=== PATIENT | male | born 1985 | race Caucasian/White ===

== ENCOUNTER 2017-01-03 21:05 | Emergency (ER) | payer MEDICAID, OTHER, SELFPAY ==
[~2017-01-03] VITALS: Ht 175.3 cm; Wt 87.1 kg
[~2017-01-03 21:05] MED LIST: ACET65TA OR; DICL500C OR; DOXY100T OR; LEVA500T OR; PERC5TAB8 OR
[2017-01-03] MEDS ORDERED: DOXY-278 PO (23:20)
[2017-01-03] MEDS ORDERED: NORCOTAB PO (23:20)
[2017-01-03 23:27] VITALS: BP 117/75
[2017-01-03] MEDS ORDERED: NORCO, ANEXSIA 5/325MG TABLET (HYDROcodone/ACETAMINOPHEN) PO ONE (23:30)
[2017-01-03] MEDS ORDERED: DOXYCYCLINE HYCLATE 100 MG TAB PO ONE (23:30)
== END 2017-01-03 23:34 | disposition home or self-care (01) ==
LOC: M ED 22:17
DX: L02.212 Cutaneous abscess of back [any part, except buttock and flank] (principal); F32.9 Major depressive disorder, single episode, unspecified; F17.200 Nicotine dependence, unspecified, uncomplicated

== ENCOUNTER 2017-01-26 22:27 | Emergency (ER) | payer MEDICAID ==
[~2017-01-26] VITALS: Ht 177.8 cm; Wt 87.2 kg
[~2017-01-26 22:27] MED LIST changes: +DOXY-278 PO; +NORCOTAB PO
[2017-01-26] MEDS ORDERED: ISOVUE-370 76% 100ML VIAL (Q9967) As Ordered ONE (22:59)
[2017-01-26] MEDS ORDERED: ONDANSETRON 4MG/2ML VIAL (J2405) IV ONE (23:00)
[2017-01-26] MEDS ORDERED: NS 1,000 ML IV ONE (23:00)
[2017-01-26] MEDS: MORPHINE 2 MG/ML 1ML SYRINGE IV PRN ×2 (23:08→23:28)
[2017-01-26 23:34] LABS: BASO % 0.5 % (0.0-1.0); EOS # 0.3 K/mm3 (0.0-0.50); EOS % 3.2 % (0.0-3.0); LARGE UNSTAINED CELL # 0.1 K/mm3 (0.0-0.4); LARGE UNSTAINED CELL % 1.6 % (0.0-4.0); LYMPH # 2.4 K/mm3 (1.5-6.5); LYMPH % 24.7 % (24.0-44.0); MEAN CORPUSCULAR HEMOGLOBIN 30.4 pg (27.0-33.0); MEAN CORPUSCULAR HGB CONC 33.1 g/dl (32.0-36.5); MONO # 0.4 K/mm3 (0.0-0.8); MONO % 4.3 % (0.0-5.0); NEUTROPHILS % 65.7 % (36.0-66.0); PLATELET COUNT, AUTOMATED 332 k/mm3 (150-450); RED CELL DISTRIBUTION WIDTH 12.1 % (11.5-14.5)
[2017-01-26 23:45] LABS: ALBUMIN/GLOBULIN RATIO 1.18 (1.00-1.93); ALKALINE PHOSPHATASE 48 U/L (45-117); ALT/SGPT 24 U/L (12-78); ANION GAP 8 MEQ/L (8-16); AST/SGOT 14 U/L (15-37); BILIRUBIN,DIRECT 0.1 MG/DL (0.0-0.2); BILIRUBIN,TOTAL 0.3 MG/DL (0.2-1.0); BLOOD UREA NITROGEN 18 MG/DL (7-18); CARBON DIOXIDE LEVEL 25 MEQ/L (21-32); CHLORIDE LEVEL 107 MEQ/L (98-107); GLOMERULAR FILTRATION RATE > 60.0 (>60); GLUCOSE, FASTING 122 MG/DL (70-105); POTASSIUM SERUM 3.7 MEQ/L (3.5-5.1); SODIUM LEVEL 140 MEQ/L (136-145); TOTAL PROTEIN 7.4 GM/DL (6.4-8.2)
--- NOTE | 2017-01-27 00:20 | REPUSA ---
CLINICAL HISTORY: Abdominal pain. TECHNIQUE: Multiple axial, sagittal and coronal CT images were obtained through the abdomen and pelvi s after administration of oral and intravenous contrast material. COMMENTS: Fluid-filled distended stomach. Fluid filled proximal small bowels. Mild large bowel fecal stasis. The liver is of uniform attenuation without mass or defect. There is no intra or extrahepatic biliary ductal dilatation. The spleen is normal. The gallbladder is within normal limits. The pancreas is of normal contour and attenuation characteristics. There is no evidence of adrenal mass. Both kidneys demonstrate prompt and equal nephrograms. The kidneys are normal in size, shape and conf iguration. There is no evidence of renal or ureteral mass. No renal or ureteral calculi are identifie d. There is no hydroureter or hydronephrosis. No evidence for appendicitis. There is no bowel wall thickening. No evidence for small or large valerio l obstruction. There is no evidence of abdominal ascites or lymphadenopathy. There is no evidence of intrinsic or extrinsic bladder mass. There is no pelvic ascites or lymphadeno suzanne. Images of the lung bases show no evidence of pleural or parenchymal mass. There are no pleural effusi ons. The bony structures are free of lytic or blastic lesions. IMPRESSION: Gastroparesis. Fluid-filled proximal small bowel. Ileus versus developing enteritis. Thank you for your kind referral of this patient.
[2017-01-27 00:35] VITALS: BP 121/67
[2017-01-27] MEDS ORDERED: MIRA3350 PO (00:41)
[2017-01-27] MEDS: MORPHINE 2 MG/ML 1ML SYRINGE IV PRN (00:46)
== END 2017-01-27 00:55 | disposition home or self-care (01) ==
LOC: M ED 22:27
DX: K31.84 Gastroparesis (principal); K59.00 Constipation, unspecified; R50.9 Fever, unspecified; F32.9 Major depressive disorder, single episode, unspecified; Z72.0 Tobacco use; Z88.2 Allergy status to sulfonamides
CPT/HCPCS: 36415; 74177; 80048; 80076; 83605; 83690; 85025; 96374; 96375; 96376; 99283; J2405; Q9967

== ENCOUNTER 2017-09-07 19:11 | Emergency (ER) | payer OTHER, MEDICAID ==
[2017-09-07 20:09] LABS: BASO # 0.1 10^3/uL (0.0-0.2); BASO % 0.6 % (0.0-1.0); EOS # 0.5 10^3/uL (0.0-0.50); EOS % 5.3 % (0.0-3.0); HEMATOCRIT 42.4 % (42.0-52.0); HEMOGLOBIN 14.3 g/dl (14.0-18.0); IMMATURE GRANULOCYTE % 0.2 % (0-3.0); LYMPH # 3.1 10^3/uL (1.5-4.5); LYMPH % 33.5 % (24.0-44.0); MEAN CORPUSCULAR HEMOGLOBIN 30.2 pg (27.0-33.0); MEAN CORPUSCULAR HGB CONC 33.7 g/dl (32.0-36.5); MEAN CORPUSCULAR VOLUME 89.5 fl (80.0-96.0); MONO # 0.6 10^3/uL (0.0-0.8); NEUTROPHILS # 5.1 10^3/uL (1.8-7.7); NEUTROPHILS % 54.4 % (36.0-66.0); PLATELET COUNT, AUTOMATED 331 10^3/uL (150-450); RED BLOOD COUNT 4.74 10^6/uL (4.30-6.10); WHITE BLOOD COUNT 9.4 10^3/uL (4.0-10.0)
[2017-09-07 20:24] LABS: ANION GAP 9 MEQ/L (8-16); BLOOD UREA NITROGEN 17 MG/DL (7-18); CARBON DIOXIDE LEVEL 28 MEQ/L (21-32); CHLORIDE LEVEL 103 MEQ/L (98-107); CREATININE FOR GFR 0.96 MG/DL (0.70-1.30); GLOMERULAR FILTRATION RATE > 60.0 (>60); GLUCOSE, FASTING 94 MG/DL (70-100); POTASSIUM SERUM 4.1 MEQ/L (3.5-5.1); SODIUM LEVEL 140 MEQ/L (136-145)
[2017-09-07 20:33] LABS: D-DIMER QUANT < 270.0 ng/ml (<500)
== END 2017-09-07 21:35 | disposition home or self-care (01) ==
LOC: M ED 19:11
DX: J20.9 Acute bronchitis, unspecified (principal); F41.9 Anxiety disorder, unspecified; F32.9 Major depressive disorder, single episode, unspecified; Z77.098 Contact with and (suspected) exposure to other hazardous, chiefly nonmedicinal, chemicals; Z88.2 Allergy status to sulfonamides; Z79.899 Other long term (current) drug therapy
CPT/HCPCS: 71046

== ENCOUNTER 2017-10-06 21:03 | Emergency (ER) | payer OTHER ==
[2017-10-06 22:43] LABS: BASO # 0.1 10^3/uL (0.0-0.2); BASO % 0.6 % (0.0-1.0); EOS # 0.4 10^3/uL (0.0-0.50); EOS % 3.8 % (0.0-3.0); HEMATOCRIT 47.3 % (42.0-52.0); IMMATURE GRANULOCYTE % 0.1 % (0-3.0); LYMPH % 32.4 % (24.0-44.0); MEAN CORPUSCULAR HEMOGLOBIN 30.1 pg (27.0-33.0); MEAN CORPUSCULAR HGB CONC 33.8 g/dl (32.0-36.5); MEAN CORPUSCULAR VOLUME 88.9 fl (80.0-96.0); MONO # 0.5 10^3/uL (0.0-0.8); MONO % 5.3 % (0.0-5.0); NEUTROPHILS # 5.4 10^3/uL (1.8-7.7); NEUTROPHILS % 57.8 % (36.0-66.0); PLATELET COUNT, AUTOMATED 336 10^3/uL (150-450); RED BLOOD COUNT 5.32 10^6/uL (4.30-6.10); RED CELL DISTRIBUTION WIDTH 11.9 % (11.5-14.5); WHITE BLOOD COUNT 9.4 10^3/uL (4.0-10.0)
[2017-10-06 22:59] LABS: INR 0.88
[2017-10-06 23:00] LABS: PARTIAL THROMBOPLASTIN TIME 29.2 SECONDS (26.8-37.9)
[2017-10-06] MEDS ORDERED: ISOVUE-370 76% 100ML VIAL (Q9967) As Ordered (23:05)
[2017-10-06 23:10] LABS: ALBUMIN 4.8 GM/DL (3.2-5.2); ALBUMIN/GLOBULIN RATIO 1.33 (1.00-1.93); ALKALINE PHOSPHATASE 59 U/L (45-117); ALT/SGPT 32 U/L (12-78); ANION GAP 4 MEQ/L (8-16); AST/SGOT 18 U/L (7-37); BILIRUBIN,DIRECT < 0.1 MG/DL (0.0-0.2); BILIRUBIN,TOTAL 0.3 MG/DL (0.2-1.0); BLOOD UREA NITROGEN 18 MG/DL (7-18); CALCIUM LEVEL 9.4 MG/DL (8.5-10.1); CARBON DIOXIDE LEVEL 31 MEQ/L (21-32); CHLORIDE LEVEL 105 MEQ/L (98-107); CK-MB VALUE MASS < 1.0 NG/ML (<3.6); CPK CREATINE PHOSPHOKINASE 94 U/L (39-308); CREATININE FOR GFR 0.87 MG/DL (0.70-1.30); GLOMERULAR FILTRATION RATE > 60.0 (>60); GLUCOSE, FASTING 89 MG/DL (70-100); LIPASE 138 U/L (73-393); MB/CK RELATIVE INDEX 1.06 (< OR =4); POTASSIUM SERUM 4.3 MEQ/L (3.5-5.1); SODIUM LEVEL 140 MEQ/L (136-145); TOTAL PROTEIN 8.4 GM/DL (6.4-8.2); TROPONIN I < 0.02 NG/ML (< 0.10)
[2017-10-06] MEDS: LORazepam 1 MG TAB PO (23:27)
== END 2017-10-07 00:48 | disposition home or self-care (01) ==
LOC: M ED 10-07 00:48
DX: R04.2 Hemoptysis (principal); F33.9 Major depressive disorder, recurrent, unspecified; F41.9 Anxiety disorder, unspecified; Z87.891 Personal history of nicotine dependence; Z98.890 Other specified postprocedural states; Z88.1 Allergy status to other antibiotic agents; Z88.2 Allergy status to sulfonamides
CPT/HCPCS: Q9967

== ENCOUNTER → 2017-12-10 | Day surgery (SDC) | payer OTHER ==
[~2017-12-10] MED LIST changes: -ACET65TA OR; -DICL500C OR; -DOXY-278 PO; -DOXY100T OR; -LEVA500T OR; +LIDOCAINE 2% INJ 100 MG/5 ML SDV (FOR ANES.) As Ordered; -NORCOTAB PO; -PERC5TAB8 OR; +PROPOFOL 500 MG/50 ML VIAL As Ordered; +fentaNYL 100 MCG/2 ML INJECTION (J3010) As Ordered
[2017-12-10] MEDS: NS 1,000 ML IV (12:00)
== END | disposition home or self-care (01) ==
LOC: M OPP 11:47
DX: R93.3 Abnormal findings on diagnostic imaging of other parts of digestive tract (principal); K62.5 Hemorrhage of anus and rectum; K57.30 Diverticulosis of large intestine without perforation or abscess without bleeding; K64.8 Other hemorrhoids; K21.0 Gastro-esophageal reflux disease with esophagitis; K22.8 Other specified diseases of esophagus; K29.70 Gastritis, unspecified, without bleeding; K44.9 Diaphragmatic hernia without obstruction or gangrene; R11.2 Nausea with vomiting, unspecified; R19.7 Diarrhea, unspecified; F41.9 Anxiety disorder, unspecified; F32.9 Major depressive disorder, single episode, unspecified; R06.83 Snoring; F12.10 Cannabis abuse, uncomplicated; Z88.2 Allergy status to sulfonamides; Z79.899 Other long term (current) drug therapy; Z80.43 Family history of malignant neoplasm of testis
CPT/HCPCS: 45378

== ENCOUNTER 2018-04-04 18:49 | Emergency (ER) | payer OTHER ==
[2018-04-04] MEDS: diphenhydrAMINE INJ 50MG/ML VIAL (J1200) IV (19:52)
[2018-04-04] MEDS: HALOPERIDOL 5 MG/ML VIAL (J1630) IV (19:52)
[2018-04-04] MEDS: NS 1,000 ML IV (19:53)
[2018-04-04 20:05] LABS: BASO # 0.1 10^3/uL (0.0-0.2); BASO % 0.5 % (0.0-1.0); EOS # 0.1 10^3/uL (0.0-0.50); EOS % 1.1 % (0.0-3.0); HEMATOCRIT 51.3 % (42.0-52.0); HEMOGLOBIN 17.4 g/dl (13.5-17.5); IMMATURE GRANULOCYTE % 0.3 % (0-3.0); LYMPH # 2.5 10^3/uL (1.5-4.5); LYMPH % 21.7 % (24.0-44.0); MEAN CORPUSCULAR HEMOGLOBIN 29.8 pg (27.0-33.0); MEAN CORPUSCULAR HGB CONC 33.9 g/dl (32.0-36.5); MONO # 0.6 10^3/uL (0.0-0.8); MONO % 4.8 % (0.0-5.0); NEUTROPHILS # 8.3 10^3/uL (1.8-7.7); NEUTROPHILS % 71.6 % (36.0-66.0); PLATELET COUNT, AUTOMATED 399 10^3/uL (150-450); RED BLOOD COUNT 5.83 10^6/uL (4.30-6.10); RED CELL DISTRIBUTION WIDTH 12.1 % (11.5-14.5); WHITE BLOOD COUNT 11.6 10^3/uL (4.0-10.0)
[2018-04-04 20:39] LABS: ETHYL ALCOHOL (ETHANOL) < 0.003 % (0.000-0.010)
[2018-04-04 20:50] LABS: ALBUMIN 5.1 GM/DL (3.2-5.2); ALBUMIN/GLOBULIN RATIO 1.19 (1.00-1.93); ALKALINE PHOSPHATASE 60 U/L (45-117); ALT/SGPT 28 U/L (12-78); ANION GAP 16 MEQ/L (8-16); AST/SGOT 23 U/L (7-37); BILIRUBIN,DIRECT 0.3 MG/DL (0.0-0.2); BLOOD UREA NITROGEN 16 MG/DL (7-18); CALCIUM LEVEL 10.8 MG/DL (8.5-10.1); CARBON DIOXIDE LEVEL 22 MEQ/L (21-32); CHLORIDE LEVEL 103 MEQ/L (98-107); CREATININE FOR GFR 1.29 MG/DL (0.70-1.30); GLOMERULAR FILTRATION RATE > 60.0 (>60); GLUCOSE, FASTING 121 MG/DL (70-100); LIPASE 135 U/L (73-393); POTASSIUM SERUM 3.3 MEQ/L (3.5-5.1); SODIUM LEVEL 141 MEQ/L (136-145); TOTAL PROTEIN 9.4 GM/DL (6.4-8.2)
[2018-04-04] MEDS: POTASSIUM CHLORIDE 10 MEQ SR TABLET PO (22:58)
== END 2018-04-04 23:10 | disposition home or self-care (01) ==
LOC: M ED 18:49
DX: K52.9 Noninfective gastroenteritis and colitis, unspecified (principal); E87.6 Hypokalemia; F41.9 Anxiety disorder, unspecified; K21.9 Gastro-esophageal reflux disease without esophagitis; Z79.899 Other long term (current) drug therapy; Z88.2 Allergy status to sulfonamides; Z88.8 Allergy status to other drugs, medicaments and biological substances
CPT/HCPCS: J1200

== ENCOUNTER → 2018-04-18 | Outpatient (REF) | payer OTHER ==
[2018-04-18 14:57] LABS: BASO # 0.1 10^3/uL (0.0-0.2); BASO % 0.7 % (0.0-1.0); EOS # 0.3 10^3/uL (0.0-0.50); EOS % 4.7 % (0.0-3.0); HEMATOCRIT 44.8 % (42.0-52.0); HEMOGLOBIN 15.1 g/dl (13.5-17.5); IMMATURE GRANULOCYTE % 0.1 % (0-3.0); LYMPH # 1.7 10^3/uL (1.5-4.5); LYMPH % 24.1 % (24.0-44.0); MEAN CORPUSCULAR HEMOGLOBIN 30.1 pg (27.0-33.0); MEAN CORPUSCULAR HGB CONC 33.7 g/dl (32.0-36.5); MEAN CORPUSCULAR VOLUME 89.2 fl (80.0-96.0); MONO # 0.4 10^3/uL (0.0-0.8); MONO % 5.2 % (0.0-5.0); NEUTROPHILS # 4.7 10^3/uL (1.8-7.7); NEUTROPHILS % 65.2 % (36.0-66.0); PLATELET COUNT, AUTOMATED 365 10^3/uL (150-450); RED BLOOD COUNT 5.02 10^6/uL (4.30-6.10); RED CELL DISTRIBUTION WIDTH 12.7 % (11.5-14.5); WHITE BLOOD COUNT 7.2 10^3/uL (4.0-10.0)
[2018-04-18 15:10] LABS: ALBUMIN 4.1 GM/DL (3.2-5.2); ALBUMIN/GLOBULIN RATIO 1.32 (1.00-1.93); ALKALINE PHOSPHATASE 51 U/L (45-117); ALT/SGPT 31 U/L (12-78); ANION GAP 6 MEQ/L (8-16); AST/SGOT 18 U/L (7-37); BILIRUBIN,TOTAL 0.4 MG/DL (0.2-1.0); BLOOD UREA NITROGEN 16 MG/DL (7-18); CALCIUM LEVEL 9.2 MG/DL (8.5-10.1); CARBON DIOXIDE LEVEL 28 MEQ/L (21-32); CHLORIDE LEVEL 107 MEQ/L (98-107); CREATININE FOR GFR 0.76 MG/DL (0.70-1.30); FREE THYROXINE INDEX 2.5 % (1.4-3.8); GLOMERULAR FILTRATION RATE > 60.0 (>60); GLUCOSE, FASTING 93 MG/DL (70-100); POTASSIUM SERUM 4.5 MEQ/L (3.5-5.1); SODIUM LEVEL 141 MEQ/L (136-145); T UPTAKE 33 % (33-40); THYROXINE (T4) 7.7 UG/DL (4.5-12.0); TOTAL 25(OH) VITAMIN D 12.4 NG/ML (30.0-100.0); TOTAL PROTEIN 7.2 GM/DL (6.4-8.2)
== END ==
LOC: M LAB REF 13:54
DX: F41.8 Other specified anxiety disorders (principal)

== ENCOUNTER → 2018-04-18 | Outpatient (REF) | payer OTHER | LOC: M LAB REF 13:44 | DX: F41.8 Other specified anxiety disorders (principal) ==

== ENCOUNTER 2018-04-23 18:20 | Emergency (ER) | payer OTHER ==
[2018-04-23] MEDS: CEPHALEXIN 500 MG CAP PO (19:26)
[2018-04-23] MEDS: IBUPROFEN 600 MG TAB PO (19:27)
[2018-04-23] MEDS: NORCO 5/325MG TABLET (BULK FOR ED) PO (19:27)
== END 2018-04-23 19:30 | disposition home or self-care (01) ==
LOC: M ED 18:20
DX: L72.3 Sebaceous cyst (principal); K21.9 Gastro-esophageal reflux disease without esophagitis; Z88.2 Allergy status to sulfonamides
CPT/HCPCS: 99282

== ENCOUNTER 2018-05-26 11:07 | Emergency (ER) | payer OTHER ==
[2018-05-26] MEDS: METOCLOPRAMIDE INJ 10MG/2ML VIAL (J2765) IV (11:27)
[2018-05-26] MEDS: NS 1,000 ML IV (11:27)
[2018-05-26 11:43] LABS: BASO # 0.1 10^3/uL (0.0-0.2); BASO % 0.5 % (0.0-1.0); EOS # 0.1 10^3/uL (0.0-0.50); EOS % 0.8 % (0.0-3.0); HEMATOCRIT 47.7 % (42.0-52.0); HEMOGLOBIN 16.4 g/dl (13.5-17.5); IMMATURE GRANULOCYTE % 0.4 % (0-3.0); LYMPH # 1.3 10^3/uL (1.5-4.5); LYMPH % 12.3 % (24.0-44.0); MEAN CORPUSCULAR HEMOGLOBIN 30.2 pg (27.0-33.0); MEAN CORPUSCULAR HGB CONC 34.4 g/dl (32.0-36.5); MEAN CORPUSCULAR VOLUME 87.8 fl (80.0-96.0); MONO # 0.5 10^3/uL (0.0-0.8); MONO % 4.5 % (0.0-5.0); NEUTROPHILS # 8.9 10^3/uL (1.8-7.7); NEUTROPHILS % 81.5 % (36.0-66.0); PLATELET COUNT, AUTOMATED 383 10^3/uL (150-450); RED BLOOD COUNT 5.43 10^6/uL (4.30-6.10); RED CELL DISTRIBUTION WIDTH 12.9 % (11.5-14.5); WHITE BLOOD COUNT 10.9 10^3/uL (4.0-10.0)
[2018-05-26 12:23] LABS: ALBUMIN 4.8 GM/DL (3.2-5.2); ALBUMIN/GLOBULIN RATIO 1.26 (1.00-1.93); ALKALINE PHOSPHATASE 62 U/L (45-117); ALT/SGPT 59 U/L (12-78); ANION GAP 14 MEQ/L (8-16); AST/SGOT 30 U/L (7-37); BILIRUBIN,DIRECT 0.1 MG/DL (0.0-0.2); BILIRUBIN,TOTAL 0.7 MG/DL (0.2-1.0); BLOOD UREA NITROGEN 14 MG/DL (7-18); CALCIUM LEVEL 10.4 MG/DL (8.5-10.1); CARBON DIOXIDE LEVEL 20 MEQ/L (21-32); CHLORIDE LEVEL 104 MEQ/L (98-107); CREATININE FOR GFR 1.04 MG/DL (0.70-1.30); GLOMERULAR FILTRATION RATE > 60.0 (>60); GLUCOSE, FASTING 131 MG/DL (70-100); LIPASE 93 U/L (73-393); POTASSIUM SERUM 3.7 MEQ/L (3.5-5.1); SODIUM LEVEL 138 MEQ/L (136-145); TOTAL PROTEIN 8.6 GM/DL (6.4-8.2)
[2018-05-26] MEDS: PROMETHAZINE INJ 25 MG/ML VIAL (J2550) IV (13:03)
[2018-05-26 13:25] LABS: AMPHETAMINES LEVEL URINE NEGATIVE (NEGATIVE); BARBITURATES URINE NEGATIVE (NEGATIVE); BENZODIAZEPINES URINE POSITIVE (NEGATIVE); CANNABINOIDS URINE POSITIVE (NEGATIVE); COCAINE METABOLITE URINE NEGATIVE (NEGATIVE); METHADONE URINE NEGATIVE (NEGATIVE); OPIATES URINE NEGATIVE (NEGATIVE); PHENCYCLIDINE URINE NEGATIVE (NEGATIVE)
== END 2018-05-26 15:50 | disposition home or self-care (01) ==
LOC: M ED 11:07
DX: R11.2 Nausea with vomiting, unspecified (principal); F41.9 Anxiety disorder, unspecified; F32.9 Major depressive disorder, single episode, unspecified; Z88.2 Allergy status to sulfonamides; Z79.899 Other long term (current) drug therapy
CPT/HCPCS: J2765

== ENCOUNTER → 2018-06-14 | Outpatient (REF) | payer OTHER | LOC: M LAB REF 20:30 | DX: L72.0 Epidermal cyst (principal) ==

== ENCOUNTER → 2018-10-20 | Outpatient (CLI) | payer OTHER ==
[~2018-10-20] MED LIST changes: +ACET65TA OR; +BUSP10TA PO; +CITA10TA5 PO; +DICL500C OR; +DOXY-350 PO; +DOXY100T OR; +HYDR-3363 PO; +HYDR-3715 PO; +IBUP-1022 PO; +KEFL500C17 PO; +LEVA500T OR; -LIDOCAINE 2% INJ 100 MG/5 ML SDV (FOR ANES.) As Ordered; +MIRA3350 PO; +OMEP40CA2 PO; +PERC5TAB8 OR; +PROP10TA56 PO; -PROPOFOL 500 MG/50 ML VIAL As Ordered; +REGL10TA6 PO; +VENL75CA47 PO; -fentaNYL 100 MCG/2 ML INJECTION (J3010) As Ordered
[2018-10-20 09:55] LABS: HEMATOCRIT 44.3 % (42.0-52.0); HEMOGLOBIN 14.6 g/dl (13.5-17.5); MEAN CORPUSCULAR HEMOGLOBIN 29.9 pg (27.0-33.0); MEAN CORPUSCULAR VOLUME 90.8 fl (80.0-96.0); PLATELET COUNT, AUTOMATED 350 10^3/uL (150-450); RED BLOOD COUNT 4.88 10^6/uL (4.30-6.10); WHITE BLOOD COUNT 7.5 10^3/uL (4.0-10.0)
[2018-10-20 10:25] LABS: ALT/SGPT 29 U/L (12-78); BILIRUBIN,TOTAL 0.2 MG/DL (0.2-1.0); BLOOD UREA NITROGEN 13 MG/DL (7-18); CARBON DIOXIDE LEVEL 31 MEQ/L (21-32); CHLORIDE LEVEL 105 MEQ/L (98-107); CHOLESTEROL LEVEL 156 MG/DL (<200); CHOLESTEROL RISK RATIO 3.545 (<5); GLOMERULAR FILTRATION RATE > 60.0 (>60); GLUCOSE, FASTING 110 MG/DL (70-100); HDL CHOLESTEROL 44 MG/DL (>40); LDL CHOLESTEROL 80 MG/DL (<100); NON-HDL-C 112 MG/DL; POTASSIUM SERUM 4.2 MEQ/L (3.5-5.1); SODIUM LEVEL 142 MEQ/L (136-145); TOTAL PROTEIN 7.3 GM/DL (6.4-8.2); TRIGLYCERIDES LEVEL 159 MG/DL (<150)
[2018-10-20 10:54] LABS: HEMOGLOBIN A1c 5.4 %
--- NOTE | 2018-10-20 11:45 | REP ---
Chest two views HISTORY: Hypertension Comparison: 09/07/2017 The lungs are clear. The heart is normal in size. The pulmonary vasculature is normal in appearance. The bony structure is intact. IMPRESSION: No acute disease. Electronically Signed by Horace Bray MD 10/20/2018 11:37 A
[2018-10-20 11:53] LABS: TOTAL 25(OH) VITAMIN D 23.2 NG/ML (30.0-100.0)
--- NOTE | 2018-10-20 13:42 | ECGEPIP ---
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
== END ==
LOC: M LAB 09:21
PROVIDERS: ATTEND Family Medicine
DX: E03.9 Hypothyroidism, unspecified (principal); I10 Essential (primary) hypertension; R53.83 Other fatigue; I49.9 Cardiac arrhythmia, unspecified

== ENCOUNTER 2018-12-12 14:07 | Emergency (ER) | payer OTHER ==
[~2018-12-12] VITALS: Ht 177.8 cm; Wt 90.7 kg
[2018-12-12] MEDS ORDERED: ALPR1TAB3 PO (14:15)
[2018-12-12] MEDS ORDERED: METO1TAB32 PO (14:15)
[2018-12-12] MEDS ORDERED: FLUO20CA19 PO (14:15)
[2018-12-12 15:35] VITALS: BP 118/82
[2018-12-19] MEDS ORDERED: TRAZ1TAB10 PO (08:51)
== END 2018-12-12 15:49 | disposition home or self-care (01) ==
LOC: M ED 14:07
DX: F33.9 Major depressive disorder, recurrent, unspecified (principal); I10 Essential (primary) hypertension; K21.9 Gastro-esophageal reflux disease without esophagitis; Z79.899 Other long term (current) drug therapy; Z88.1 Allergy status to other antibiotic agents; Z88.2 Allergy status to sulfonamides; Z88.8 Allergy status to other drugs, medicaments and biological substances; F17.210 Nicotine dependence, cigarettes, uncomplicated

== ENCOUNTER 2018-12-14 10:48 | Inpatient (IN) | payer OTHER ==
[~2018-12-14] VITALS: Ht 177.8 cm; Wt 91.6 kg
[~2018-12-14 10:48] MED LIST changes: +ALPR1TAB3 PO; +FLUO20CA19 PO; +METO1TAB32 PO
[2018-12-14 11:50] LABS: HEMATOCRIT 47.7 % (42.0-52.0); HEMOGLOBIN 16.1 g/dl (13.5-17.5); MEAN CORPUSCULAR HEMOGLOBIN 30.6 pg (27.0-33.0); MEAN CORPUSCULAR HGB CONC 33.8 g/dl (32.0-36.5); MEAN CORPUSCULAR VOLUME 90.5 fl (80.0-96.0); PLATELET COUNT, AUTOMATED 358 10^3/uL (150-450); RED BLOOD COUNT 5.27 10^6/uL (4.30-6.10)
[2018-12-14 12:17] LABS: AMPHETAMINES LEVEL URINE NEGATIVE (NEGATIVE); BARBITURATES URINE NEGATIVE (NEGATIVE); BENZODIAZEPINES URINE POSITIVE (NEGATIVE); CANNABINOIDS URINE POSITIVE (NEGATIVE); COCAINE METABOLITE URINE NEGATIVE (NEGATIVE); METHADONE URINE NEGATIVE (NEGATIVE); OPIATES URINE NEGATIVE (NEGATIVE); PHENCYCLIDINE URINE NEGATIVE (NEGATIVE)
[2018-12-14 12:27] LABS: ACETAMINOPHEN LEVEL < 2.0 UG/ML (10.0-30.0); ALBUMIN 4.1 GM/DL (3.2-5.2); ALT/SGPT 45 U/L (12-78); BILIRUBIN,DIRECT < 0.1 MG/DL (0.0-0.2); BILIRUBIN,TOTAL 0.6 MG/DL (0.2-1.0); BLOOD UREA NITROGEN 12 MG/DL (7-18); CALCIUM LEVEL 9.2 MG/DL (8.5-10.1); CARBON DIOXIDE LEVEL 28 MEQ/L (21-32); CHLORIDE LEVEL 105 MEQ/L (98-107); CREATININE FOR GFR 0.65 MG/DL (0.70-1.30); ETHYL ALCOHOL (ETHANOL) < 0.003 % (0.000-0.010); GLOMERULAR FILTRATION RATE > 60.0 (>60); GLUCOSE, FASTING 100 MG/DL (70-100); POTASSIUM SERUM 4.2 MEQ/L (3.5-5.1); SALICYLATE LEVEL 2.3 MG/DL (5.0-30.0); SODIUM LEVEL 142 MEQ/L (136-145); TOTAL PROTEIN 7.7 GM/DL (6.4-8.2)
[2018-12-14] MEDS ORDERED: OMEPRAZOLE 20 MG CAP PO ONE (13:45)
[2018-12-14] MEDS ORDERED: METOPROLOL SUCC *XL* 25MG TAB (TopROL *XL*) PO ONE (13:45)
[2018-12-14] MEDS: FLUoxetine 20 MG CAP PO SCH (14:55)
[2018-12-14] MEDS: ALPRAZolam 0.5 MG TAB PO SCH ×3 (14:56→21:20)
[2018-12-14] MEDS ORDERED: LORazepam 2 MG TAB PO PRN (17:15)
[2018-12-14] MEDS ORDERED: MOM 30ML SUSPENSION UDC PO PRN (17:15)
[2018-12-14] MEDS ORDERED: ACETAMINOPHEN TAB 650MG DOSE (2X325MG) PO PRN (17:15)
[2018-12-14] MEDS ORDERED: MAALOX 30 ML SUSP *UDC PO PRN (17:15)
[2018-12-14] MEDS ORDERED: traZODone 50 MG TAB PO PRN (17:15)
[2018-12-14 18:19] VITALS: BP 129/82
[2018-12-14] MEDS ORDERED: hydrOXYzine 50 MG TAB PO PRN (20:15)
[2018-12-14] MEDS: THIAMINE 100 MG TAB PO SCH (21:20)
[2018-12-14] MEDS: MIRTAZAPINE 15 MG TAB PO SCH (21:20)
[2018-12-15] MEDS: FLUoxetine 20 MG CAP PO SCH (09:47)
[2018-12-15] MEDS: NICOTINE 21MG/24HR 1 EA TRANSDERMAL TD SCH (09:47)
[2018-12-15] MEDS: OMEPRAZOLE 20 MG CAP PO SCH (09:47)
[2018-12-15] MEDS: MULTIVITAMINS/MINERALS THERAP 1 TAB PO SCH (09:47)
[2018-12-15] MEDS: THIAMINE 100 MG TAB PO SCH ×2 (09:47→20:11)
[2018-12-15] MEDS: FOLIC ACID 1 MG TAB PO SCH (09:47)
[2018-12-15] MEDS: ALPRAZolam 0.5 MG TAB PO SCH (09:47)
[2018-12-15 11:36] VITALS: BP 145/70
--- NOTE | 2018-12-15 11:59 | HPEPDOC ---
General Date of Admission December 14, 2018 at 17:09 Date of Service: December 15, 2018 Attending Physician: RAVI STEEL MD Chief Complaint The patient is a 33-year-old male admitted with a reason for visit of Unspecified Depression. History of Present Illness Patient is a 33 year old male, PMH significant for nicotine dependence, polysubstance abuse, hypertension, depression, admitted on account of depressive episode.Triage information states patient came to the ED by himself, stating he felt lost and unsure of what to do. He had been feeling that way for a couple of weeks. Patient also reported having been fighting frequently with his significant other. On assessment. he verbalizes frustrations with not meeting yet with a psychiatrist, states he feels locked-in. He denies any physical symptoms, no chest pain, no shortness of breath, no weakness, dizziness, abdominal pain, nausea, vomiting, diarrhea. Home Medications Scheduled Alprazolam (Alprazolam) 1 Mg Tablet, 1 MG PO QID, (Reported) Fluoxetine Hcl (Fluoxetine HCl) 20 Mg Capsule, 20 MG PO DAILY, (Reported) Metoprolol Succinate (Metoprolol Succinate) 25 Mg Tab.er.24h, 25 MG PO QHS, (Reported) Omeprazole (Omeprazole) 40 Mg Cap, 40 MG PO DAILY, (Reported) Allergies Coded Allergies: Sulfa (Sulfonamide Antibiotics) (Verified Allergy, Unknown, 12/12/18) rash sulfamethoxazole (Verified Allergy, Unknown, 12/12/18) rash trimethoprim (Verified Allergy, Unknown, 12/12/18) rash Past Medical History Medical History Hypertension Depression Nicotine dependence Polysubstance abuse Surgical History Hernia repair Family History Father: Testicular cancer, CAD status post CABG Social History * Smoker: greater than 1 pack/day Alcohol: occationally Drugs: marijuana A-FIB/CHADSVASC A-FIB History Current/History of A-Fib/PAF?: No Current PO Anticoag Therapy: No Review of Systems Other systems A 10 point pertinent review of systems was completed, negative except as stated in the history of presenting illness. Physical Examination Other physical findings General: NAD. Skin: Warm, dry, intact Cardiovascular: Regular rate and rhythm, no MRG, no jugular venous distention, no edema. Respiratory:CTAB, no accessory muscle use noted. Abdomen: Bowel sounds +, no tenderness, no distention Musculoskeletal: No joint deformities, Neurologic: CN 2-12 grossly intact, alert and oriented 3 Psychiatric: unhappy Vital Signs Vital Signs Date Time Temp Pulse Resp B/P (MAP) Pulse Ox O2 Delivery O2 Flow Rate FiO2 12/15/18 11:36 99 145/70 12/14/18 18:19 97.8 18 99 12/14/18 18:04 Room Air Assessment/Plan -Hypertension -Depressive episode -Nicotine dependence -Polysubstance abuse PLAN Blood pressure is currently controlled with beta christophe therapy. DVT prophylaxis is not indicated since patient is frequently ambulatory At this time patient has no medical problems requiring active follow-up or intervention Acute mental health issues to be addressed by primary team. Please reconsult medical team as needed. We appreciate the ability to be invo lved in patient's care. Plan / VTE VTE Prophylaxis Ordered?: No VTE Exclusion Mechanical Proph: Low Risk for VTE JENNIFFER JOHNSON December 15, 2018 11:59
--- NOTE | 2018-12-15 13:53 | MHHPEPDOC ---
General Date Of Admission: December 14, 2018 Legal Status: 9.39 Chief Complaint "I don't know what to do... I feel lost." History of Present Illness HISTORY OF THE PRESENT ILLNESS: Patient is a 33 -year-old , male, with no previous psychiatric history or admission who present to [facility] ED yesterday (had been there 12/14/18 as well with depression, no SI, discharged with f/u [facility]) after having been to [facility] 12/13/18 as a walk-in with an appt made 12/26/18 stating he couldn't wait that long. Pt stated in ED that "I don't know what to do... I feel lost." Stated he and his fiance having been fighting the past few weeks due to his addiction to xanax which he admits to abusing and is prescribed outpatient (takes 1mg qam/qnoon, 2mg qhs) causing her to move out with their 2y/o son to [place] with her parents and refuse to allow him to see his son due to addiction per ED. Stated in ED "I don't want to , I would never leave my son" then began to state that there are multiple ways her could kill himself. Per ED he was crying, anxious, distraught, depressed, hopeless, helpless, and felt unsafe to go home. I endorsed xanax withdrawal in ED and was given 1 time dose of ativan to prevent worsening of withdrawal. He denied HI, alcohol abuse. Stated in ED he slept well when he took xanax and that his appetite was poor. Psychiatric Review of Systems Depression (2 or more weeks): depressed mood, insomnia/hypersomnia (insomnia), feelings of excess/guilt (excess), feelings of worthlesness, difficulty concentrating, appetite changes, suicidal thoughts Pinky (4 or more days of): denies Psychosis: denies PTSD: denies Anxiety: situational anxiety, stressor related anxiety, panic attacks Anxiety/ 6 months or more of: restlessness, keyed up, difficulty concentrating, irritability, muscle tension, sleep disturbance Past Psychiatric History Previous Psychiatric Diagnosis: anxiety Previous Psychiatric Admissions: denies Suicide Attempts: denies Psychiatric Follow-up: [facility] 12/26/18. PCP prescribes xanax and prozac Psychiatric medications: xanax 1mg qid, prozac 20mg daily Past Medical History Medical Problems htn, gerd Head Injury: No Seizures: No Hospitalizations: No Surgeries: Yes (inguinal hernia repair at 4y/o) Family Medical/Psychiatric HX Medical Problems noncontributory Psychiatric Disorders: No Addiction: No Suicide Attemps/Completions: No Addiction History nicotine (daily use), other (cannabis occasional, abuses prescribed xanax, u tox positive benzos and cannabis) Social History Childhood: born and raised [place], [place] in 2 parent home with siblings. good childhood Abuse/Trauma:denies Current Living Situation: lives alone with a cat and dog in [place] as carroll moved out with their 2y/o son a few days ago due to his xanax abuse and is now living with her parents in [place] Education: high school grad Employment: [employer] Social Support: family, carroll Legal: denies Marital: single, never , 2y/o son with carroll who won't along pt to see due to xanax abuse Mental Status Examination General Appearance: well groomed, appears stated age, hospital scubs/clothing Build: average Demeanor: very figety Eye Contact: fair Activity: anxious Behavior: cooperative, restless Speech: clear, spontaneous, reg/rate,rhythm,volume Mood: euthymic, anxious Mood anxious Affect: full, congruent, anxious Thought Process: logical/linear, intact, other (worrisome thoughts, social anxiety) Thought Content (Delusions): denies SI, HI, AVH Thought Content (Other): none reported, preoccupied, appropriate Thought Content (Aggressive): none reported Perception (Hallucinations): none reported Perception (Other): none reported Cognition (Impairment of): none reported Cognition(Intelligence Est.): average Oriented: Awake, Alert, Oriented times three Insight: fair Judgment: Fair Psychosis: Denies Diagnoses Substance induced anxiety d/o Benzodiazepine use d/o - severe Social anxiety 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 I don't belong here with these crazy people... I'm no crazy." He was very anxious. Continued to talk with pt about why he was here and what he felt he needed when he came to the ED 12/12 and and stated he didn't know just want to be able to see his son. Discuss with pt that his fiance is refusing to allow him to see their son due to his xanax abuse and that he is demonstrated tolerance and physical need of the med as required a dose of ativan in ED due to withdrawal. Advised pt that it would not be safe for him to stop or attempt to stop on his own as he is mostly likely at risk of possible withdrawal seizure or DTs. Pt ambilent but admits he hasn't been doing well and has not been able to go w/o psychiatric services for past 3 days prior admission (12/12 ED, 12/13 [facility], 12/14 ED). Pt agreeable to staying to detox off xanax safely, improve anxiety, depression, panic, hopelessness. Denies SI/HI, hallucinations, delusions today. Endorses social anxiety and encouraged to go to grous still as will improve more he does it and learn coping skills for anxiety. Discussed and showed pt grounding technique as a coping mechanism for himself in future for anxiety/panic. Received xanax this am as continued from outpatient meds when it was supposed to be discontinued on admission. Discontinue xanax today. Start ciwa protocol with ativan, continue prozac, remeron and doxepin for insomnia. Initial Treatment Plan 1. Patient was admitted on a 9.39 status. 2. Complete history was obtained. 3. With patients permission, family will be contacted and database will be expanded. 4. Patients medication regimen will be reviewed and changed accordingly. 5. Patient will be provided with protected environment. 6. Patient will be treated with individual, group, and milieu therapies. 7. Patient will receive supportive psych-education. 8. Discharge planning will commence immediately. 9. Outpatient follow-up treatment will be strongly recommended. 10. The initial treatment plan will focus initially on: * Depression. * Risk for suicide. * Substance abuse. 11. ciwa protocol for benzo withdrawal with available ativan per protocol, continue prozac 20mg daily, start remeron 30mg qhs for insomnia and atarax 50mg q4hr prn anxiety. d/c xanax ESTIMATED LENGTH OF STAY: 3-5 DAYS. TIME SPENT COUNSELING AND COORDINATING INITIAL CARE: 60 minutes. Vital Signs Vital Signs Date Time Temp Pulse Resp B/P (MAP) Pulse Ox O2 Delivery O2 Flow Rate FiO2 12/15/18 11:36 99 145/70 12/14/18 18:19 97.8 18 99 12/14/18 18:04 Room Air Medications Scheduled Alprazolam (Alprazolam) 1 Mg Tablet, 1 MG PO QID, (Reported) Fluoxetine Hcl (Fluoxetine HCl) 20 Mg Capsule, 20 MG PO DAILY, (Reported) Metoprolol Succinate (Metoprolol Succinate) 25 Mg Tab.er.24h, 25 MG PO QHS, (Reported) Omeprazole (Omeprazole) 40 Mg Cap, 40 MG PO DAILY, (Reported) Allergies Coded Allergies: Sulfa (Sulfonamide Antibiotics) (Verified Allergy, Unknown, 12/12/18) rash sulfamethoxazole (Verified Allergy, Unknown, 12/12/18) rash trimethoprim (Verified Allergy, Unknown, 12/12/18) rash MAMI VELEZ DO December 15, 2018 13:44
[2018-12-15 18:07] VITALS: BP 131/73
[2018-12-15] MEDS: MIRTAZAPINE 15 MG TAB PO SCH (20:11)
[2018-12-15] MEDS: METOPROLOL SUCC *XL* 25MG TAB (TopROL *XL*) PO SCH (20:12)
[2018-12-16 06:39] VITALS: BP 125/76
[2018-12-16] MEDS: FOLIC ACID 1 MG TAB PO SCH (09:36)
[2018-12-16] MEDS: OMEPRAZOLE 20 MG CAP PO SCH (09:36)
[2018-12-16] MEDS: MULTIVITAMINS/MINERALS THERAP 1 TAB PO SCH (09:36)
[2018-12-16] MEDS: FLUoxetine 20 MG CAP PO SCH (09:36)
[2018-12-16] MEDS: THIAMINE 100 MG TAB PO SCH ×2 (09:36→20:23)
[2018-12-16] MEDS: NICOTINE 21MG/24HR 1 EA TRANSDERMAL TD SCH (09:36)
[2018-12-16 10:11] VITALS: BP 125/76
--- NOTE | 2018-12-16 12:16 | MHIPNPDOC ---
[facility] Progress Note Progress Note DATE OF SERVICE: 12/16/18 HISTORY: Patient is a 33 -year-old , male, with no previous psychiatric history or admission who present to [facility] ED yesterday (had been there 12/14/18 as well with depression, no SI, discharged with f/u [facility]) after having been to [facility] 12/13/18 as a walk-in with an appt made 12/26/18 stating he couldn't wait that long. Pt stated in ED that "I don't know what to do... I feel lost." Stated he and his fiance having been fighting the past few weeks due to his addiction to xanax which he admits to abusing and is prescribed outpatient (takes 1mg qam/qnoon, 2mg qhs) causing her to move out with their 2y/o son to [place] with her parents and refuse to allow him to see his son due to addiction per ED. Stated in ED "I don't want to , I would never leave my son" then began to state that there are multiple ways her could kill himself. Per ED he was crying, anxious, distraught, depressed, hopeless, helpless, and felt unsafe to go home. I endorsed xanax withdrawal in ED and was given 1 time dose of ativan to prevent worsening of withdrawal. He denied HI, alcohol abuse. Stated in ED he slept well when he took xanax and that his appetite was poor. VITAL SIGNS: See below. NEW TEST RESULTS:See below. CURRENT MEDICATIONS: See below. MENTAL STATUS EXAMINATION: General Appearance: well groomed, appears stated age, ownclothing Build: average Demeanor: less fidgety Eye Contact: fair Activity: anxious Behavior: cooperative, less restless Speech: clear, spontaneous, reg/rate,rhythm,volume Mood: euthymic, less anxious Mood better Affect: full, congruent, less anxious Thought Process: logical/linear, intact, other (worrisome thoughts, social anxiety) Thought Content (Delusions): denies SI, HI, AVH Thought Content (Other): none reported, less preoccupied, appropriate Thought Content (Aggressive): none reported Perception (Hallucinations): none reported Perception (Other): none reported Cognition (Impairment of): none reported Cognition(Intelligence Est.): average Oriented: Awake, Alert, Oriented times three Insight: fair Judgment: Fair Psychosis: Denies DIAGNOSES: Substance induced anxiety d/o Benzodiazepine use d/o - severe Social anxiety 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 States he's tolerating his prozac well and feels it's beneficial for mood anxiety. Endorses vivid dreams all night and admits slept with nicotine patch on and advised to not do that as causes vivid dreams. States he slept well last night. Feels he is tolerating his medications and they're beneficial. He attend one group and found helpful. Encouraged to go to all groups and yoga to improve anxiety and increase mindfulness. Spoke with carroll yesterday who told him she was happy he was here for treatment. He denies SI/HI, hallucinations, delusions. Pt feels safe here. MANAGEMENT PLAN: continue plan. Medications: prozac 20mg daily remeron 30mg qhs for insomnia atarax 50mg q4hr prn anxiety TIME SPENT: 30 minutes. Vital Signs Vital Signs Date Time Temp Pulse Resp B/P (MAP) Pulse Ox O2 Delivery O2 Flow Rate FiO2 12/16/18 06:39 98.7 56 14 125/76 (92) 12/14/18 18:19 99 12/14/18 18:04 Room Air Current Medications Current Medications Acetaminophen (Tylenol Tab) 650 mg Q6HP PRN PO HEADACHE or DISCOMFORT; Start 12/14/18 at 17:15 Al Hydrox/Mg Hydrox/Simethicone (Mylanta) 30 ml Q4HP PRN PO HEARTBURN/INDIGESTION; Start 12/14/18 at 17:15 Alprazolam (Xanax) 1 mg QID PO Last administered on 12/15/18at 09:47; Start 12/14/18 at 13:00; Stop 12/15/18 at 12:57; Status DC Fluoxetine HCl (PROzac) 20 mg DAILY PO Last administered on 12/15/18at 09:47; Start 12/14/18 at 09:00 Folic Acid (Folic Acid) 1 mg DAILY PO Last administered on 12/15/18at 09:47; Start 12/15/18 at 09:00 Home Med (Med Rec Complete!) ASDIRECTED XX ; Start 12/14/18 at 13:00; Stop 12/14/18 at 13:00; Status DC Hydroxyzine HCl (Atarax) 50 mg Q4HP PRN PO ANXIETY; Start 12/14/18 at 20:15 Lorazepam (Ativan) 2 mg ASDIRECTED PRN PO SEE PROTOCOL; Start 12/14/18 at 17:15 Magnesium Hydroxide (Milk Of Magnesia) 30 ml DAILYPRN PRN PO CONSTIPATION; Start 12/14/18 at 17:15 Metoprolol Succinate (TopROL XL) 25 mg QHS PO Last administered on 12/15/18 20:12; Start 12/15/18 at 21:00 Mirtazapine (Remeron) 30 mg QHS PO Last administered on 12/15/18at 20:11; Start 12/14/18 at 21:00 Multivitamins (Theragram-M) 1 tab DAILY PO Last administered on 12/15/18 09:47; Start 12/15/18 at 09:00 Nicotine (Nicoderm Cq 21mg) 1 patch DAILY TD Last administered on 12/15/18 09:47; Start 12/15/18 at 09:00 Omeprazole (PriLOSEC) 40 mg DAILY PO Last administered on 12/15/18 09:47; Start 12/15/18 at 09:00 Thiamine HCl (Thiamine HCl) 100 mg BID PO Last administered on 12/15/18at 20:11; Start 12/14/18 at 17:15; Stop 12/17/18 at 09:01 Trazodone HCl (Desyrel) 50 mg QHSP PRN PO INSOMNIA; Start 12/14/18 at 17:15 Allergies Coded Allergies: Sulfa (Sulfonamide Antibiotics) (Verified Allergy, Unknown, 12/12/18) rash sulfamethoxazole (Verified Allergy, Unknown, 12/12/18) rash trimethoprim (Verified Allergy, Unknown, 12/12/18) MAMI Vincent DO December 16, 2018 9:20 am
[2018-12-16 17:42] VITALS: BP 136/87
[2018-12-16 17:58] VITALS: BP 136/87
[2018-12-16] MEDS: METOPROLOL SUCC *XL* 25MG TAB (TopROL *XL*) PO SCH (20:23)
[2018-12-16] MEDS: MIRTAZAPINE 15 MG TAB PO SCH (20:23)
[2018-12-16 20:30] VITALS: BP 136/87
[2018-12-17 05:24] VITALS: BP 136/87
[2018-12-17 06:55] VITALS: BP 119/79
[2018-12-17] MEDS: NICOTINE 21MG/24HR 1 EA TRANSDERMAL TD SCH (09:21)
[2018-12-17] MEDS: THIAMINE 100 MG TAB PO SCH (09:22)
[2018-12-17] MEDS: OMEPRAZOLE 20 MG CAP PO SCH (09:22)
[2018-12-17] MEDS: MULTIVITAMINS/MINERALS THERAP 1 TAB PO SCH (09:22)
[2018-12-17] MEDS: FLUoxetine 20 MG CAP PO SCH (09:22)
[2018-12-17] MEDS: FOLIC ACID 1 MG TAB PO SCH (09:22)
[2018-12-17 13:05] VITALS: BP 128/74
[2018-12-17 18:22] VITALS: BP 143/94
[2018-12-17] MEDS: MIRTAZAPINE 15 MG TAB PO SCH (20:13)
[2018-12-17] MEDS: METOPROLOL SUCC *XL* 25MG TAB (TopROL *XL*) PO SCH (20:13)
[2018-12-17 22:28] VITALS: BP 143/94
[2018-12-18 06:43] VITALS: BP 120/68
[2018-12-18] MEDS: FLUoxetine 20 MG CAP PO SCH (08:41)
[2018-12-18] MEDS: FOLIC ACID 1 MG TAB PO SCH (08:41)
[2018-12-18] MEDS: MULTIVITAMINS/MINERALS THERAP 1 TAB PO SCH (08:41)
[2018-12-18] MEDS: OMEPRAZOLE 20 MG CAP PO SCH (08:41)
[2018-12-18] MEDS: NICOTINE 21MG/24HR 1 EA TRANSDERMAL TD SCH (08:42)
[2018-12-18 15:00] VITALS: BP 138/72
[2018-12-18 18:09] VITALS: BP 159/78
[2018-12-18] MEDS: MIRTAZAPINE 15 MG TAB PO SCH (20:20)
[2018-12-18 20:21] VITALS: BP 140/78
[2018-12-18] MEDS: METOPROLOL SUCC *XL* 25MG TAB (TopROL *XL*) PO SCH (20:21)
--- NOTE | 2018-12-18 21:35 | MHIPN ---
DATE: 12/17/2018 CHIEF COMPLAINT: Says feels better. OBJECTIVE: Seen for followup in the presence of staff. Says feels better in that he is less anxious, less nervous. Says is glad is off the Xanax. Appetite is fair. Says has been sleeping well but that he had vivid dreams and has felt tired during the day, including when waking up and later in the day as well. Says this is new and is a bit uncomfortable with that. Says has had contact with his fiance. Says child protective services is involved. He says they have not seen him yet but have met with her. He says there is an order of protection of sorts between the two of them, but they are allowed to communicate by telephone, per the patient. Appetite is fair. MENTAL STATUS EXAMINATION: Neat, cooperative. No agitation. NO psychomotor retardation. Affect restricted but reactive. He is coherent. Denies any thoughts of harming himself or anyone else. Currently no evidence of any psychosis. Cognition was grossly intact. His judgment is possibly improved. Insight fair. ASSESSMENT: 1. Social anxiety disorder. 2. Benzodiazepine use disorder. 3. Consider substance-induced anxiety. PLAN: It is quite possible the Remeron, which was started at 30 mg, may be impacting his fatigue, and we spoke of decreasing it to 15 mg at night to see how he does on that. No other changes are made for now. He has not used any hydroxyzine nor any trazodone, so they would not account for his tiredness. I would suggest considering a meeting with him and his fiance over the phone in the presence of staff before he leaves to help address concerns that they have regarding each other and their relationship. He says they plan to go for couple's counseling later as well, which is encouraging. He is to be encouraged to participate in activities in the unit. VITAL SIGNS: These are as listed. Blood pressure 119/79, pulse 74, temperature 96.3.
[2018-12-19 07:00] VITALS: BP 124/73
[2018-12-19] MEDS: OMEPRAZOLE 20 MG CAP PO SCH (07:58)
[2018-12-19] MEDS: FOLIC ACID 1 MG TAB PO SCH (07:58)
[2018-12-19] MEDS: MULTIVITAMINS/MINERALS THERAP 1 TAB PO SCH (07:58)
[2018-12-19] MEDS: NICOTINE 21MG/24HR 1 EA TRANSDERMAL TD SCH (07:58)
[2018-12-19] MEDS: FLUoxetine 20 MG CAP PO SCH (07:58)
[2018-12-19] MEDS ORDERED: HYDRO50TAB PO (08:51)
[2018-12-19] MEDS ORDERED: TRAZO50TA PO (08:51)
[2018-12-19] MEDS ORDERED: FLUO20CA19 PO (08:51)
[2018-12-19] MEDS ORDERED: REME15TA PO (08:51)
--- NOTE | 2018-12-19 08:51 | MHDSPDOC ---
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 Pt stated in ED that "I don't know what to do... I feel lost." Stated he and his fiance having been fighting the past few weeks due to his addiction to xanax which he admits to abusing and is prescribed outpatient (takes 1mg qam/qnoon, 2mg qhs) causing her to move out with their 2y/o son to [place] with her parents and refuse to allow him to see his son due to addiction per ED. Stated in ED "I don't want to , I would never leave my son" then began to state that there are multiple ways her could kill himself. Per ED he was crying, anxious, distraught, depressed, hopeless, helpless, and felt unsafe to go home. I endorsed xanax withdrawal in ED and was given 1 time dose of ativan to prevent worsening of withdrawal. He denied HI, alcohol abuse. Stated in ED he slept well when he took xanax and that his appetite was poor. CONSULTANTS INVOLVED: none TREATMENT AND PROGRESS ON THE UNIT : Pt was admitted to [facility], seen for psychiatric assessment and started on prozac 20mg daily for mood and remeron 15mg qhs for insomnia. He was placed on a [facility] protocol for benzo withdrawal which he tolerated well with improvement of withdrawal symptoms after his xanax was discontinued. He was provided atarax 50mg q4hr prn anxiety and trazodone 50mg qhs prn insomnia. Pt found his medications beneficial and tolerated them well. He attended groups daily during his stay. His symptoms improved with treatment. On day of discharge he denied depression, anxiety, insomnia, SI/HI, hallucinations, delusions. He was discharged home w/follow-up at [facility] on 12/26/18. He felt safe for discharge. DISCHARGE ASSESSMENT: Pt seen and states that his mood and anxiety are better today and he's looking forward to going home today. States he's tolerating his prozac well and feels it's beneficial for mood anxiety. States he slept well last night. Feels he is tolerating his medications and they're beneficial. He attend one group and found helpful. Spoke with carroll over the weekend who is supportive. Future oriented toward seeing her and his son when he goes home. He denies depression, anxiety, insomnia, SI/HI, hallucinations, delusions. Pt feels safe here. MENTAL STATUS EXAMINATION ON DISCHARGE: General Appearance: well groomed, appears stated age, own clothing Build: average Demeanor: less fidgety Eye Contact: good Activity: average Behavior: cooperative, calm Speech: clear, spontaneous, reg/rate,rhythm,volume Mood: euthymic, calm Mood better Affect: full, congruent, calm Thought Process: logical/linear, intact, future oriented Thought Content (Delusions): denies SI, HI, AVH Thought Content (Other): none reported, appropriate Thought Content (Aggressive): none reported Perception (Hallucinations): none reported Perception (Other): none reported Cognition (Impairment of): none reported Cognition(Intelligence Est.): average Oriented: Awake, Alert, Oriented times three Insight: good Judgment: good Psychosis: Denies MEDICATIONS ON DISCHARGE: prozac 20mg daily remeron 15mg qhs for insomnia atarax 50mg q4hr prn anxiety trazodone 50mg qhs prn insomnia PLAN/FOLLOWUP ARRANGEMENTS: D/c home w/follow-up at [facility] on 12/26/18. The amount of time spent in the coordination of care for this patient was approximately 30 minutes. Vital Signs/I&Os Vital Signs Date Time Temp Pulse Resp B/P (MAP) Pulse Ox O2 Delivery O2 Flow Rate FiO2 12/19/18 07:00 98.0 78 14 124/73 (90) 12/14/18 18:19 99 12/14/18 18:04 Room Air Medications Scheduled Alprazolam (Alprazolam) 1 Mg Tablet, 1 MG PO QID, (Reported) Fluoxetine Hcl (Fluoxetine HCl) 20 Mg Capsule, 20 MG PO DAILY, (Reported) Metoprolol Succinate (Metoprolol Succinate) 25 Mg Tab.er.24h, 25 MG PO QHS, (Reported) Omeprazole (Omeprazole) 40 Mg Cap, 40 MG PO DAILY, (Reported) Allergies Coded Allergies: Sulfa (Sulfonamide Antibiotics) (Verified Allergy, Unknown, 12/12/18) rash sulfamethoxazole (Verified Allergy, Unknown, 12/12/18) rash trimethoprim (Verified Allergy, Unknown, 12/12/18) rash MAMI VELEZ DO Dec 19, 2018 8:51 am
--- NOTE | 2018-12-19 09:43 | MHIPN ---
DATE: 12/18/2018 CHIEF COMPLAINT: Says had difficulty with sleep. SUBJECTIVE: Says is doing okay, moods are better, but that he had difficulty with sleep last night. Says had a hard time getting to sleep. Says has had a talk with his fiancee and that went well. MENTAL STATUS EXAMINATION: Neat. Cooperative. No agitation. He is coherent. Affect is broader than it was yesterday. Denies any thoughts of harming himself or anyone else. Currently no evidence of any psychosis. Cognition grossly intact. Judgment is improved, as is insight. ASSESSMENT: Social anxiety disorder. Benzodiazepine use disorder. PLAN: Continue current care and observations, encourage participation in activities in the unit. He will be seeing the treatment team tomorrow, further recommendations will be made. VITAL SIGNS: Blood pressure 120/68, pulse 79, temperature 99.
== END 2018-12-19 12:10 | disposition home or self-care (01) | DRG 776 ==
LOC: M ED 10:48 → M ED INP 17:09 → M PSY 18:11
PROVIDERS: ADMIT Psychiatry & Neurology Psychiatry; ATTEND Psychiatry & Neurology Psychiatry
DX: F19.280 Other psychoactive substance dependence with psychoactive substance-induced anxiety disorder (principal); I10 Essential (primary) hypertension; F41.0 Panic disorder [episodic paroxysmal anxiety]; F12.10 Cannabis abuse, uncomplicated; F40.10 Social phobia, unspecified; F17.200 Nicotine dependence, unspecified, uncomplicated; Z79.899 Other long term (current) drug therapy; Z88.2 Allergy status to sulfonamides; Z88.8 Allergy status to other drugs, medicaments and biological substances

== ENCOUNTER → 2019-02-02 | Outpatient (CLI) | payer OTHER ==
[~2019-02-02] MED LIST changes: +HYDRO50TAB PO; +REME15TA PO; +TRAZ1TAB10 PO
[2019-02-02 10:39] LABS: HEMOGLOBIN A1c 5.7 %
[2019-02-02 10:57] LABS: ALBUMIN 3.9 GM/DL (3.2-5.2); ALT/SGPT 67 U/L (12-78); BILIRUBIN,TOTAL 0.4 MG/DL (0.2-1.0); BLOOD UREA NITROGEN 12 MG/DL (7-18); CALCIUM LEVEL 9.7 MG/DL (8.5-10.1); CARBON DIOXIDE LEVEL 28 MEQ/L (21-32); CHLORIDE LEVEL 107 MEQ/L (98-107); CHOLESTEROL LEVEL 234 MG/DL (<200); CHOLESTEROL RISK RATIO 3.774 (<5); CREATININE FOR GFR 0.88 MG/DL (0.70-1.30); FREE T4 0.94 NG/DL (0.76-1.46); GLOMERULAR FILTRATION RATE > 60.0 (>60); GLUCOSE, FASTING 86 MG/DL (70-100); HDL CHOLESTEROL 62 MG/DL (>40); LDL CHOLESTEROL 159 MG/DL (<100); NON-HDL-C 172 MG/DL; POTASSIUM SERUM 4.8 MEQ/L (3.5-5.1); SODIUM LEVEL 140 MEQ/L (136-145); TOTAL 25(OH) VITAMIN D 20.4 NG/ML (30.0-100.0); TOTAL PROTEIN 7.5 GM/DL (6.4-8.2); TRIGLYCERIDES LEVEL 65 MG/DL (<150)
== END ==
LOC: M LAB 09:55
PROVIDERS: ATTEND Family Medicine
DX: Z13.1 Encounter for screening for diabetes mellitus (principal); F41.8 Other specified anxiety disorders; Z13.220 Encounter for screening for lipoid disorders

== ENCOUNTER → 2019-02-02 | Outpatient (CLI) | payer OTHER | LOC: M OUTALCOH 08:01 | PROVIDERS: ATTEND Psychiatry & Neurology Psychiatry | DX: F12.20 Cannabis dependence, uncomplicated (principal); F13.20 Sedative, hypnotic or anxiolytic dependence, uncomplicated ==

== ENCOUNTER 2019-04-22 23:50 | Emergency (ER) | payer OTHER ==
[~2019-04-22] VITALS: Ht 177.8 cm; Wt 90.9 kg
[~2019-04-22 23:50] MED LIST changes: +HYDR1TAB33 PO; -HYDRO50TAB PO
[2019-04-23 01:53] LABS: INFLUENZA A AMPLIFICATION NEGATIVE (NEGATIVE); INFLUENZA B AMPLIFICATION NEGATIVE (NEGATIVE)
[2019-04-23] MEDS ORDERED: CEFU50TA PO (02:33)
[2019-04-23] MEDS ORDERED: CEFUROXIME 500 MG TAB PO ONE (02:45)
[2019-04-23] MEDS ORDERED: ALBUTEROL 90 MCG/ACT 8GM HFA INHALER INH ONE (02:45)
[2019-04-23 03:35] VITALS: BP 122/78
--- NOTE | 2019-04-23 08:04 | REP ---
PA and lateral chest: Comparison is 10/20/2018. There is a right upper lobe infiltrate as an interval change. Remainder the lung carrion are clear. Cardiac size is normal. The marguerite, mediastinum, skeletal structures are unremarkable. Impression: Right upper lobe infiltrate. Electronically Signed by Hudson Mireles MD 04/23/2019 07:57 A
[2019-04-24] MEDS ORDERED: ONDA4TAB6 PO (05:37)
[2019-04-24] MEDS ORDERED: LEVA750T7 PO (05:37)
== END 2019-04-23 03:36 | disposition home or self-care (01) ==
LOC: M ED 23:50
DX: R91.8 Other nonspecific abnormal finding of lung field (principal); Z88.2 Allergy status to sulfonamides

== ENCOUNTER 2019-04-24 03:10 | Emergency (ER) | payer OTHER ==
[~2019-04-24] VITALS: Ht 177.8 cm; Wt 90.9 kg
[~2019-04-24 03:10] MED LIST changes: +CEFU50TA PO
[2019-04-24] MEDS ORDERED: ONDANSETRON 4 MG ORAL DISINTEGRATING TAB (Q0162 PER 1MG) PO ONE (03:30)
[2019-04-24] MEDS ORDERED: ACETAMINOPHEN 325 MG TAB PO ONE (03:30)
[2019-04-24 03:54] LABS: BASO % 0.3 % (0.0-1.0); EOS % 0.2 % (0.0-3.0); HEMATOCRIT 43.5 % (42.0-52.0); HEMOGLOBIN 14.6 g/dl (13.5-17.5); LYMPH # 0.8 10^3/uL (1.5-5.0); LYMPH % 6.3 % (24.0-44.0); MEAN CORPUSCULAR HEMOGLOBIN 30.1 pg (27.0-33.0); MEAN CORPUSCULAR HGB CONC 33.6 g/dl (32.0-36.5); MEAN CORPUSCULAR VOLUME 89.7 fl (80.0-96.0); MONO # 1.1 10^3/uL (0.0-0.8); MONO % 8.1 % (0.0-5.0); NEUTROPHILS % 84.9 % (36.0-66.0); PLATELET COUNT, AUTOMATED 287 10^3/uL (150-450); RED BLOOD COUNT 4.85 10^6/uL (4.30-6.10)
[2019-04-24] MEDS ORDERED: NS 1,000 ML IV ONE (04:00)
[2019-04-24] MEDS ORDERED: LevoFLOXacin IV 750 MG in IV 1 EA IV ONE (04:15)
[2019-04-24 04:19] LABS: ALBUMIN 3.6 GM/DL (3.2-5.2); ALT/SGPT 64 U/L (12-78); BILIRUBIN,DIRECT 0.4 MG/DL (0.0-0.2); BILIRUBIN,TOTAL 0.9 MG/DL (0.2-1.0); BLOOD UREA NITROGEN 8 MG/DL (7-18); CALCIUM LEVEL 9.2 MG/DL (8.5-10.1); CARBON DIOXIDE LEVEL 28 MEQ/L (21-32); CHLORIDE LEVEL 103 MEQ/L (98-107); CREATININE FOR GFR 0.93 MG/DL (0.70-1.30); GLOMERULAR FILTRATION RATE > 60.0 (>60); GLUCOSE, FASTING 125 MG/DL (70-100); LIPASE 54 U/L (73-393); POTASSIUM SERUM 3.8 MEQ/L (3.5-5.1); SODIUM LEVEL 138 MEQ/L (136-145); TOTAL PROTEIN 7.2 GM/DL (6.4-8.2)
[2019-04-24] MEDS ORDERED: IBUPROFEN 800 MG TAB PO ONE (05:30)
[2019-04-24] MEDS ORDERED: LEVA750T7 PO (05:37)
[2019-04-24] MEDS ORDERED: ONDA4TAB6 PO (05:37)
[2019-04-24 06:06] VITALS: BP 131/77
== END 2019-04-24 06:07 | disposition home or self-care (01) ==
LOC: M ED 03:10
DX: J18.9 Pneumonia, unspecified organism (principal); R11.2 Nausea with vomiting, unspecified; T36.1X5A Adverse effect of cephalosporins and other beta-lactam antibiotics, initial encounter; F17.201 Nicotine dependence, unspecified, in remission; Z79.2 Long term (current) use of antibiotics; Z88.2 Allergy status to sulfonamides
CPT/HCPCS: 36415; 80048; 80076; 83690; 85025; 87040; 96365; 96366; 99284; J1956; Q0162

== ENCOUNTER 2020-10-08 12:54 | Emergency (ER) | payer BC, OTHER ==
[~2020-10-08] VITALS: Ht 177.8 cm; Wt 81.8 kg
[~2020-10-08 12:54] MED LIST changes: -FLUO20CA19 PO; +FLUO20CA22 PO; +LEVA750T7 PO; +MIRT-62 PO; -OMEP40CA2 PO; +OMEP40CA97 PO; +ONDA4TAB6 PO; -REME15TA PO
--- NOTE | 2020-10-08 14:40 | REP ---
INDICATION: SYNCOPE. COMPARISON: 09/27/2006. TECHNIQUE: CT BRAIN PERFORMED IN THE AXIAL PLANE. CORONAL RECONSTRUCTION IMAGES ARE PERFORMED. FINDINGS: THE VENTRICLES ARE NORMAL IN SIZE AND POSITION. THERE IS NO MIDLINE SHIFT OR MASS EFFECT. CRANE-WHITE DIFFERENTIATION IS WELL MAINTAINED. THERE IS NO ACUTE INTRACRANIAL HEMORRHAGE OR EXTRA-AXIAL FLUID COLLECTION. BONE WINDOW EXAMINATION IS UNREMARKABLE. VISUALIZED MASTOID AIR CELLS AND PARANASAL SINUSES ARE CLEAR. IMPRESSION: NEGATIVE NONCONTRAST CT BRAIN. <Electronically signed by Hudson Crane > 10/08/20 [id number]
[2020-10-08 15:03] VITALS: BP 124/61
--- NOTE | 2020-10-08 20:19 | ECGEPIP ---
[facility] - ED Test Date: 2020-10-08 Pat Name: MUKUL ZMAORA Department: Room: - Gender: Male Credit Risk Associate: : 1985 Requested By: KAREN Bustamante Order Number: [id number] Reading MD: Bobo Hernandez Measurements Intervals Oblong Rate: 57 P: 41 HI: 126 QRS: 42 QRSD: 92 T: 32 QT: 388 QTc: 377 Interpretive Statements Sinus bradycardia RATE CHANGE COMPARED TO 10/20/18 Electronically Signed on 10-08-2020 20:19:27 EDT by Bobo Hernandez
== END 2020-10-08 15:04 | disposition home or self-care (01) ==
LOC: M ED 12:54
DX: R55 Syncope and collapse (principal); R00.1 Bradycardia, unspecified; I10 Essential (primary) hypertension; K21.9 Gastro-esophageal reflux disease without esophagitis; Z88.2 Allergy status to sulfonamides

== ENCOUNTER → 2020-11-11 | Outpatient (CLI) | payer BC | LOC: M LABSMTC 09:42 | PROVIDERS: ATTEND Pediatrics | DX: Z11.52 Encounter for screening for COVID-19 (principal) ==

== ENCOUNTER → 2021-01-15 | Outpatient (CLI) | payer BC ==
[~2021-01-15] MED LIST changes: +OMEP40CA4 PO; -OMEP40CA97 PO
[2021-01-15 15:39] LABS: HEMOGLOBIN A1c 5.3 %
[2021-01-15 15:46] LABS: ALBUMIN 4.4 GM/DL (3.2-5.2); ALT/SGPT 19 U/L (12-78); BILIRUBIN,TOTAL 0.8 MG/DL (0.2-1.0); BLOOD UREA NITROGEN 12 MG/DL (7-18); CALCIUM LEVEL 9.5 MG/DL (8.5-10.1); CARBON DIOXIDE LEVEL 29 MEQ/L (21-32); CHLORIDE LEVEL 105 MEQ/L (98-107); CHOLESTEROL LEVEL 166 MG/DL (<200); CHOLESTEROL RISK RATIO 2.477 (<5); CREATININE FOR GFR 0.79 MG/DL (0.70-1.30); GLOMERULAR FILTRATION RATE > 60.0 (>60); GLUCOSE, FASTING 85 MG/DL (70-100); HDL CHOLESTEROL 67 MG/DL (>40); LDL CHOLESTEROL 86 MG/DL (<100); NON-HDL-C 99 MG/DL; SODIUM LEVEL 138 MEQ/L (136-145); TOTAL 25(OH) VITAMIN D 26.3 NG/ML (30.0-100.0); TOTAL PROTEIN 7.5 GM/DL (6.4-8.2); TRIGLYCERIDES LEVEL 65 MG/DL (<150)
== END ==
LOC: M LAB 14:14
PROVIDERS: ATTEND Nurse Practitioner Family
DX: E55.9 Vitamin D deficiency, unspecified (principal)

== ENCOUNTER → 2021-03-10 | Outpatient (CLI) | payer BC ==
[2021-03-10 08:45] LABS: BASO # 0.1 10^3/uL (0.0-0.2); BASO % 0.8 % (0.0-1.0); EOS # 0.3 10^3/uL (0.0-0.5); HEMATOCRIT 47.1 % (42.0-52.0); HEMOGLOBIN 15.6 g/dl (13.5-17.5); LYMPH # 1.9 10^3/uL (1.5-5.0); MEAN CORPUSCULAR HEMOGLOBIN 29.9 pg (27.0-33.0); MEAN CORPUSCULAR HGB CONC 33.1 g/dl (32.0-36.5); MEAN CORPUSCULAR VOLUME 90.2 fl (80.0-96.0); MONO # 0.4 10^3/uL (0.0-0.8); MONO % 6.1 % (2.0-8.0); NEUTROPHILS # 3.6 10^3/uL (1.5-8.5); NEUTROPHILS % 57.9 % (36.0-66.0); PLATELET COUNT, AUTOMATED 350 10^3/uL (150-450); RED BLOOD COUNT 5.22 10^6/uL (4.30-6.10); WHITE BLOOD COUNT 6.2 10^3/uL (4.0-10.0)
--- NOTE | 2021-03-10 08:56 | REP ---
INDICATION: ABDOMINAL PAIN *LABS 1ST, US 2ND* COMPARISON: CT of the abdomen and pelvis dated 01/26/2017 TECHNIQUE: Real time miller scale ultrasound examination using curved array transducer. FINDINGS: Liver and pancreas are normal in contour, size, and echogenicity without focal hepatic or pancreatic lesions identified. The gallbladder demonstrates 1.8 cm echogenic area at the fundus with posterior shadowing likely representing stones/sludge and less likely mass. No pericholecystic fluid, or gallbladder wall thickening noted. No biliary ductal dilatation is appreciated and the common bile duct measures 3.5 mm diameter. Right kidney is normal in reniform shape without hydronephrosis and measures 12.5 x 6.4 x 4.3 cm. No ascites in the visualized right upper quadrant. IMPRESSION: Findings most likely representing gallbladder sludge and stones and less likely representing mass. Consider pre and postcontrast CT of the abdomen for further investigation if necessary. <Electronically signed by Naeem Rawls > 03/10/21 [id number]
[2021-03-10 09:20] LABS: ALBUMIN 3.9 GM/DL (3.2-5.2); ALT/SGPT 24 U/L (12-78); BILIRUBIN,TOTAL 0.4 MG/DL (0.2-1.0); BLOOD UREA NITROGEN 15 MG/DL (7-18); CALCIUM LEVEL 9.2 MG/DL (8.5-10.1); CARBON DIOXIDE LEVEL 29 MEQ/L (21-32); CHLORIDE LEVEL 107 MEQ/L (98-107); CREATININE FOR GFR 0.65 MG/DL (0.70-1.30); GLOMERULAR FILTRATION RATE > 60.0 (>60); GLUCOSE, FASTING 94 MG/DL (70-100); LIPASE 90 U/L (73-393); POTASSIUM SERUM 4.7 MEQ/L (3.5-5.1); SODIUM LEVEL 142 MEQ/L (136-145); TOTAL PROTEIN 7.1 GM/DL (6.4-8.2)
== END ==
LOC: M RAD 07:47
PROVIDERS: ATTEND Nurse Practitioner Family
DX: R10.9 Unspecified abdominal pain (principal)

== ENCOUNTER 2021-03-20 19:57 | Inpatient (IN) | payer BC ==
[~2021-03-20] VITALS: Ht 180.3 cm; Wt 79.1 kg
[2021-03-20] MEDS ORDERED: FLUO20CA22 (20:16)
[2021-03-20 21:41] LABS: HEMOGLOBIN 15.7 g/dl (13.5-17.5); MEAN CORPUSCULAR HEMOGLOBIN 30.5 pg (27.0-33.0); MEAN CORPUSCULAR HGB CONC 34.1 g/dl (32.0-36.5); MEAN CORPUSCULAR VOLUME 89.3 fl (80.0-96.0); PLATELET COUNT, AUTOMATED 373 10^3/uL (150-450); RED BLOOD COUNT 5.15 10^6/uL (4.30-6.10); WHITE BLOOD COUNT 9.7 10^3/uL (4.0-10.0)
[2021-03-20 22:17] LABS: ACETAMINOPHEN LEVEL < 2.0 UG/ML (10.0-30.0); ALBUMIN 3.9 GM/DL (3.2-5.2); ALT/SGPT 24 U/L (12-78); AMPHETAMINES LEVEL URINE NEGATIVE (NEGATIVE); BARBITURATES URINE NEGATIVE (NEGATIVE); BENZODIAZEPINES URINE NEGATIVE (NEGATIVE); BILIRUBIN,DIRECT 0.2 MG/DL (0.0-0.2); BILIRUBIN,TOTAL 0.6 MG/DL (0.2-1.0); BLOOD UREA NITROGEN 16 MG/DL (7-18); CANNABINOIDS URINE POSITIVE (NEGATIVE); CARBON DIOXIDE LEVEL 26 MEQ/L (21-32); CHLORIDE LEVEL 108 MEQ/L (98-107); COCAINE METABOLITE URINE NEGATIVE (NEGATIVE); CREATININE FOR GFR 0.75 MG/DL (0.70-1.30); ETHYL ALCOHOL (ETHANOL) 0.004 % (0.000-0.010); GLOMERULAR FILTRATION RATE > 60.0 (>60); GLUCOSE, FASTING 85 MG/DL (70-100); METHADONE URINE NEGATIVE (NEGATIVE); OPIATES URINE NEGATIVE (NEGATIVE); PHENCYCLIDINE URINE NEGATIVE (NEGATIVE); POTASSIUM SERUM 3.8 MEQ/L (3.5-5.1); SALICYLATE LEVEL 2.3 MG/DL (5.0-30.0); SODIUM LEVEL 141 MEQ/L (136-145); TOTAL PROTEIN 7.3 GM/DL (6.4-8.2)
[2021-03-21] MEDS ORDERED: HOME MED LIST COMPLETE! XX SCH (00:05)
--- NOTE | 2021-03-21 05:01 | MHIPNPDOC ---
[facility] Progress Note Progress Note DATE OF SERVICE: 03/21/21 Communicated with PSA patient needs admission, brought in by police on 9.41 after previously storming out of ED, has been having suicidal thoughts and worsening depression, gave firearms to mother. Reportedly patient being SAFE ACTed. Vital Signs Vital Signs Date Time Temp Pulse Resp B/P (MAP) Pulse Ox O2 Delivery O2 Flow Rate FiO2 03/20/21 20:42 97.2 104 16 147/85 (105) 98 Room Air Laboratory Data 24H Labs Laboratory Tests 2 03/20/21 21:27: Nucleated Red Blood Cells % (auto) 0.0, Anion Gap 7L, Glomerular Filtration Rate > 60.0, Calcium Level 9.0, Total Bilirubin 0.6, Direct Bilirubin 0.2, Aspartate Amino Transf (AST/SGOT) 13, Alanine Aminotransferase (ALT/SGPT) 24, Alkaline Phosphatase 46, Total Protein 7.3, Albumin 3.9, Albumin/Globulin Ratio 1.1, Thyroid Stimulating Hormone (TSH) 1.810, Salicylates Level 2.3L, Urine Opiates Screen NEGATIVE, Urine Methadone Screen NEGATIVE, Acetaminophen Level < 2.0L, Urine Barbiturates Screen NEGATIVE, Urine Phencyclidine Screen NEGATIVE, Urine A mphetamines Screen NEGATIVE, Urine Benzodiazepines Screen NEGATIVE, Urine Cocaine Metabolite Screen NEGATIVE, Urine Cannabinoids Screen POSITIVEH, Ethyl Alcohol Level 0.004 CBC/BMP Laboratory Tests 03/20/21 21:27 Current Medications Current Medications Medications (Trade) Dose Ordered Sig/Renate Route PRN Reason Start Time Stop Time Status Last Admin Dose Admin Home Med (Home Med List Complete!) ASDIRECTED XX 03/21/21 00:05 03/21/21 00:08 DC Allergies Coded Allergies: Sulfa (Sulfonamide Antibiotics) (Verified Allergy, Unknown, 12/12/18) rash sulfamethoxazole (Verified Allergy, Unknown, 12/12/18) rash trimethoprim (Verified Allergy, Unknown, 12/12/18) NAYE Little MD Mar 21, 2021 05:01
[2021-03-21] MEDS ORDERED: hydrOXYzine 25 MG TAB PO ONE (16:20)
[2021-03-21] MEDS ORDERED: NICOTINE 21MG/24HR 1 EA TRANSDERMAL TD ONE (16:20)
[2021-03-21 16:59] LABS: RSV AMPLIFICATION NEGATIVE (NEGATIVE)
[2021-03-21] MEDS ORDERED: MOM 30ML SUSPENSION UDC PO PRN (19:55)
[2021-03-21] MEDS ORDERED: MAALOX 30 ML SUSP *UDC PO PRN (19:55)
[2021-03-21 21:24] VITALS: BP 141/88
[2021-03-21] MEDS: traZODone 50 MG TAB PO PRN (22:37)
[2021-03-22 06:07] VITALS: BP 96/57
[2021-03-22] MEDS: NICOTINE 21MG/24HR 1 EA TRANSDERMAL TD PRN (08:16)
[2021-03-22] MEDS: OLANZapine ORAL DISINTEGRATING TAB 5MG PO PRN ×2 (08:16→16:27)
--- NOTE | 2021-03-22 10:16 | MHHPEPDOC ---
General Legal Status: 9.39 Chief Complaint Depressed mood and suicidal thoughts ". 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 is brought by the police for suicidal thoughts. Initially patient came with the mother to the ER refused to wear mask and went away he was confronted by his mother to me told that he wanted to hurt himself she called the police and police brought him to the hospital. Patient has long history of depression he was admitted 2 years ago to [facility]. He continued follow-up he with outpatient doctors for a short time and stopped taking his medications. Reports he has been depressed for a long time however his depression has increased after the of his father 2 years ago, currently he has conflicts with his girlfriend, he feels his girlfriend is lying to him particularly her relationships in the past which is bothering him, but he is not sure whether currently she is cheating on him. According to the patient it is an intrusive thought that always come and never resolved. Currently his depression has increased his energy level is low, feels hopeless and has some suicidal thoughts without plans. Denies any manic episodes, however has some racing thoughts [facility] Patient has history of anxiety he thinks he is a worrier, worries about day-to-day life, has history of panic attacks and social phobia. Denies any history of psychosis . ED report :Pt was brought in on due to SI. Pt was brought in by mother earlier today, but pt left due to being asked to wear a mask in waiting area. During evaluation pt was very guarded and gave minimal responses stating "I just need to talk to a shrink or a psychiatrist or something" Pt stated that he was sick of retelling his story to a million people and just wants to not feel this way. Pt stated he has always struggled with depression but since the of his father 3 years ago it has gotten significantly worse. Pt also stated that he "just learned his girlfriend has been living a lie the past 8 years" but would not elaborate on reasoning. Pt denied HI and AH/VH. Pt responses to the C-SSRS were very guarded and minimal. Pt seemed to be contemplating answers for a long time before answering question. It was reported to TW that pt recently removed all firearms from his home and gave them to his mother to hold onto. When directly asked pt admitted to it but would not continue the conversation. Pt seems to be struggling with accepting and admitting to the extent of his SI. Past Psychiatric History 1 previous psychiatric hospitalization 2 years ago in [facility]. Patient was on various medications, Prozac ,Lexapro, venlafaxine, Celexa, Lexapro, Remeron etc. Reports only Prozac helped him partially Past Medical History Medical Problems History of gallstone, a cyst below his right ear, Head Injury: No Seizures: No Hospitalizations: No Surgeries: No Family Medical/Psychiatric HX Medical Problems Not available Psychiatric Disorders: Yes Addiction: No Suicide Attemps/Completions: No Addiction History cocaine Social History He was born and raised in [place] he has 1 brother he was raised by both p arents graduated from high school started working no history of any physical sexual abuse. Mental Status Examination General Appearance: well groomed Build: average Demeanor: average Eye Contact: avoidant Activity: average Behavior: cooperative Speech: clear, mild Mood: depressed Affect: constricted Thought Process: logical/linear Thought Content (Delusions): persecutory Thought Content (Other): preoccupied Thought Content (Aggressive): none reported Perception (Hallucinations): none reported Perception (Other): none reported Cognition (Impairment of): none reported Cognition(Intelligence Est.): average Oriented: Awake, Alert, Oriented times three Insight: fair Judgment: Fair Psychosis: Denies Diagnoses Major depressive disorder recurrent Generalized anxiety disorder Panic disorder without agoraphobia Social anxiety Cannabis use disorder A-FIB/CHADSVASC A-FIB History Current/History of A-Fib/PAF?: No Current PO Anticoag Therapy: No Assessment Patient currently is depressed had some suicidal thoughts without plans, patient is obsessed with his girlfriend lying to him, patient has considerable anxiety Probably patient requires higher dose of Prozac and an antianxiety medication. Plan would be Prozac 20 mg in the a.m. Seroquel 25 mg at night Time spent 45 minutes Initial Treatment Plan 1. Patient was admitted on a [9.39] status. 2. Complete history was obtained. 3. With patients permission, family will be contacted and database will be expanded. 4. Patients medication regimen will be reviewed and changed accordingly. 5. Patient will be provided with protected environment. 6. Patient will be treated with individual, group, and milieu therapies. 7. Patient will receive supportive psych-education. 8. Discharge planning will commence immediately. 9. Outpatient follow-up treatment will be strongly recommended. 10. The initial treatment plan will focus initially on: * Depression. * Risk for suicide. ESTIMATED LENGTH OF STAY: - DAYS. TIME SPENT COUNSELING AND COORDINATING INITIAL CARE: minutes. Pt Refused Vital Signs Vital Signs Date Time Temp Pulse Resp B/P (MAP) Pulse Ox O2 Delivery O2 Flow Rate FiO2 03/22/21 06:07 97.5 61 16 96/57 (70) 100 Room Air Laboratory Data 24H Labs Laboratory Tests 2 03/21/21 15:47: Coronavirus (COVID-19)(PCR) NEGATIVE, Influenza Type A (RT-PCR) NEGATIVE, Influenza Type B (RT-PCR) NEGATIVE, Respiratory Syncytial Virus (PCR) NEGATIVE Medications No Active Prescriptions or Reported Meds Allergies Coded Allergies: Sulfa (Sulfonamide Antibiotics) (Verified Allergy, Unknown, 12/12/18) rash sulfamethoxazole (Verified Allergy, Unknown, 12/12/18) rash trimethoprim (Verified Allergy, Unknown, 12/12/18) BRITTNI Chen MD Mar 22, 2021 10:16
[2021-03-22] MEDS: FLUoxetine 20 MG CAP PO SCH (11:04)
[2021-03-22] MEDS: ACETAMINOPHEN TAB 650MG DOSE (2X325MG) PO PRN ×2 (11:15→19:32)
[2021-03-22 16:19] VITALS: BP 120/69
--- NOTE | 2021-03-22 17:16 | HPEPDOC ---
[facility] Medical History & Physical Date of Admission Mar 22, 2021 Date of Service: Mar 22, 2021 History and Physical CHIEF COMPLAINT: suicidal ideation HISTORY OF PRESENT ILLNESS: Patient is a pleasant 36-year-old male to the ER on March 21, 2021 by police for suicidal thoughts. Patient has a history of d epression, gallstones with a suspected history of biliary colic. Hospitalist service has been consulted for medical intake. Patient reports difficulties in relationships particularly with his current girlfriend with whom he shares a 5-year-old son. He feels hopeless and continues to have suicidal thoughts with some plan. Patient also reports ongoing work-up by his primary care doctor for right upper quadrant pain. He had ultrasound performed on 02/2321 showing gallstones and biliary sludge without evidence for acute cholecystitis. Patient continues to have baseline 5 out of 10 right upper quadrant pain. He request that we perform CT imaging of his abdomen. On review of the prior ultrasound findings show an echogenic 1.8 cm area at the fundus with posterior shadowing representing stone sludge and less likely mass in the gallbladder. Patient denies any chest pain palpitations shortness of breath fevers chills nausea vomiting diarrhea or constipation. He is currently tolerating a regular diet. Does not have leukocytosis. Does not have elevation of his bilirubin nor any transaminitis. PAST MEDICAL HISTORY: Depression anxiety Right upper quadrant pain with ultrasound findings of gallstones and sludge possibly related to biliary colic. Undergoing work-up by primary. PAST SURGICAL HISTORY: Remote history of hernia repair in childhood. SOCIAL HISTORY: Active smoker Consumes alcohol socially She is a 5-year-old son with his girlfriend. FAMILY HISTORY: Reports history of cancer in the family unable to specify further ALLERGIES: Please see below. REVIEW OF SYSTEMS: 10 point review of systems was conducted. Relevant findings are noted in the HPI. PHYSICAL EXAMINATION: VITAL SIGNS: please see below General: NAD, comfortable HEENT: PERRLA, EOMI, sclerae clear Neck: supple, normal ROM, no JVD Respiratory: lungs CTAB, no wheeze, no rales, no crackles CVS: RRR, normal S1, S2, no murmurs Abdo: Soft nondistended without rigidity or guarding. Patient has mild pain to palpation of the right upper quadrant. He has a negative Osuna sign. Extremities: no edema, pulses 2+ MSK: no joint deformities, normal ROM Neuro: no focal neuro deficits, moving all 4 extremities, CN2-12 intact. Strength 5/5 in all 4 extremities. No nystagmus. Psych: calm, cooperative, AAO x 3 LABORATORY DATA: See below. IMAGING: Gallbladder ultrasound dated 03/10/2021 performed as an outpatient. Listed here for reference. IMPRESSION: Findings most likely representing gallbladder sludge and stones and less likely representing mass. Consider pre and postcontrast CT of the abdomen for further investigation if necessary. MICROBIOLOGY: Please see below. ASSESSMENT: Patient is a pleasant 36-year-old male to the ER on March 21, 2021 by police for suicidal thoughts. Patient has a history of depression, gallstones with a suspected history of biliary colic. Hospitalist service has been consulted for medical intake. Patient reports difficulties in relationships particularly with his current girlfriend with whom he shares a 5-year-old son. He feels hopeless and continues to have suicidal thoughts with some plan. Patient also reports ongoing work-up by his primary care doctor for right upper quadrant pain. He had ultrasound performed on 02/2321 showing gallstones and biliary sludge without evidence for acute cholecystitis. Patient continues to have baseline 5 out of 10 right upper quadrant pain. He request that we perform CT imaging of his abdomen. On review of the prior ultrasound findings show an echogenic 1.8 cm area at the fundus with posterior shadowing representing stone sludge and less likely mass in the gallbladder. Patient denies any chest pain palpitations shortness of breath fevers chills nausea vomiting diarrhea or constipation. He is currently tolerating a regular diet. Does not have leukocytosis. Does not have elevation of his bilirubin nor any transaminitis. . PLAN: Suicidal ideation with plan: Per psychiatry Right upper quadrant pain: Worked up by PCP. Ultrasound showing 1.8 cm echogenic area possibly due to gallstones or sludge or less likely mass. Patient has baseline pain right now at 5 out of 10. Patient has no fevers no chills. He has not vomited or had diarrhea. He does not have a leukocytosis. He does not have elevation of direct or indirect bilirubin. He does not have any transaminitis. He has no jaundice or scleral icterus on physical examination. However while patient continues to have pain and there were findings on ultrasound imaging recommending pre and postcontrast CT of the abdomen for further investigation, the study will be ordered while the patient is inpatient at [facility]. The only limitation I can foresee is if patient requires an IV and is not possible to insert it in the CT suite simply for IV administration of contrast patient can continue to obtain the study as an outpatient basis. He has an appointment for the study in a week's time. Thank you for involving me in the care of this patient. I will follow up on the CT study. Patient will require a referral to general surgery on discharge. Please reconsult us as needed. Vital Signs Vital Signs Date Time Temp Pulse Resp B/P (MAP) Pulse Ox O2 Delivery O2 Flow Rate FiO2 03/22/21 16:19 98.7 79 16 120/69 (86) 97 Room Air Home Medications No Active Prescriptions or Reported Meds Allergies Coded Allergies: Sulfa (Sulfonamide Antibiotics) (Verified Allergy, Unknown, 12/12/18) rash sulfamethoxazole (Verified Allergy, Unknown, 12/12/18) rash trimethoprim (Verified Allergy, Unknown, 12/12/18) rash CHAD HUMPHRIES MD Mar 22, 2021 17:16
[2021-03-22] MEDS: traZODone 50 MG TAB PO PRN (20:46)
[2021-03-22] MEDS: QUEtiapine FUMARATE 25 MG TAB PO SCH (20:46)
[2021-03-23 06:08] VITALS: BP 121/69
[2021-03-23] MEDS ORDERED: ISOVUE-370 76% 100ML VIAL As Ordered ONE (08:01)
[2021-03-23] MEDS: NICOTINE 21MG/24HR 1 EA TRANSDERMAL TD PRN (09:46)
[2021-03-23] MEDS: OLANZapine ORAL DISINTEGRATING TAB 5MG PO PRN ×2 (09:46→20:39)
[2021-03-23] MEDS: FLUoxetine 20 MG CAP PO SCH (09:46)
--- NOTE | 2021-03-23 11:24 | MHIPNPDOC ---
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 is brought by the police for suicidal thoughts. Initially patient came with the mother to the ER refused to wear mask and went away he was confronted by his mother to me told that he wanted to hurt himself she called the police and police brought him to the hospital. Patient has long history of depression he was admitted 2 years ago to [facility]. He continued follow-up he with outpatient doctors for a short time and stopped taking his medications. Reports he has been depressed for a long time however his depression has in creased after the of his father 2 years ago, currently he has conflicts with his girlfriend, he feels his girlfriend is lying to him particularly her relationships in the past which is bothering him, but he is not sure whether currently she is cheating on him. According to the patient it is an intrusive thought that always come and never resolved. Currently his depression has increased his energy level is low, feels hopeless and has some suicidal thoughts without plans. Denies any manic episodes, however has some racing thoughts Patient currently sees a [facility]. Patient has history of anxiety he thinks he is a worrier, worries about day-to-day life, has history of panic attacks and social phobia. Denies any history of psychosis Interval : Reports he has been doing well though he has the intrusive thoughts, that the girlfriend was lying to him, it is much less, denies any suicidal thoughts Denies any side effects from the medication Mental status examination: Neatly dressed with clean cloths, makes good eye contact speech rate rhythm and volume are regular, psychomotor activity is normal, Mood is anxious affect is anxious, denied any auditory visual hallucinations, denied any suicidal homicidal ideas, insight and judgments are fair. Diagnosis: Major depressive disorder Assessment and plan: Patient does not have any suicidal thoughts, he is eager to go back home to see his son going to kindergarten school and asking for discharge Since his intrusive thoughts are still persisting though minimal, I would like to increase his Prozac to 40 mg daily Estimated length of stay 2 to 3 days Time spent is 25 minutes Vital Signs Vital Signs Date Time Temp Pulse Resp B/P (MAP) Pulse Ox O2 Delivery O2 Flow Rate FiO2 03/23/21 06:08 98.5 52 18 121/69 (86) 98 Room Air Current Medications Current Medications Medications (Trade) Dose Ordered Sig/Renate Route PRN Reason Start Time Stop Time Status Last Admin Dose Admin Acetaminophen (Tylenol Tab) 650 mg Q6HP PRN PO HEADACHE or MILD DISCOMFORT 03/21/21 19:55 03/22/21 19:32 Al Hydrox/Mg Hydrox/Simethicone (Mylanta) 30 ml Q4HP PRN PO HEARTBURN/INDIGESTION 03/21/21 19:55 Fluoxetine HCl (PROzac) 20 mg QAM PO 03/22/21 09:00 03/23/21 11:13 DC 03/23/21 09:46 Fluoxetine HCl (PROzac) 40 mg QAM PO 03/24/21 09:00 UNV Home Med (Home Med List Complete!) ASDIRECTED XX 03/21/21 00:05 03/21/21 00:08 DC Magnesium Hydroxide (Milk Of Magnesia) 30 ml DAILYPRN PRN PO CONSTIPATION 03/21/21 19:55 Nicotine (Nicoderm Cq 21mg) 1 patch DAILY PRN TD NICOTINE WITHDRAWAL 03/21/21 19:55 03/23/21 09:46 Olanzapine (ZyPREXA ZYDIS) 5 mg Q6HP PRN PO ANXIETY/AGITATION 03/21/21 19:55 03/23/21 09:46 Quetiapine Fumarate (SEROquel) 25 mg QHS PO 03/22/21 21:00 03/22/21 20:46 Trazodone HCl (Desyrel) 50 mg QHSP PRN PO INSOMNIA 03/21/21 19:55 03/22/21 20:46 Allergies Coded Allergies: Sulfa (Sulfonamide Antibiotics) (Verified Allergy, Unknown, 12/12/18) rash sulfamethoxazole (Verified Allergy, Unknown, 12/12/18) rash trimethoprim (Verified Allergy, Unknown, 12/12/18) BRITTNI Chen MD Mar 23, 2021 11:24
--- NOTE | 2021-03-23 12:50 | REP ---
INDICATION: RUQ pain, hx of gallstones and sludge, possible mass. COMPARISON: None. TECHNIQUE: Imaging protocol: Computed tomography of the abdomen and pelvis with oral and without and with IV contrast. Contiguous 3 mm thick axial projection images were obtained through the abdomen and pelvis. 2D sagittal and coronal reconstructions were performed. Radiation optimization: All CT scans at this facility use at least one of these dose optimization techniques: automated exposure control; mA and/or kV adjustment per patient size (includes targeted exams where dose is matched to clinical indication); or iterative reconstruction. Contrast material: ISOVUE 370; Contrast volume: 100 ml; Contrast route: INTRAVENOUS (IV). FINDINGS: Heart and lung bases: The lung bases are clear. There are no pleural effusions. The heart size is normal. There is no pericardial effusion. Liver: Normal. Gallbladder: There is apparent calcification of the wall of the gallbladder fundus. No distinct stones are identified. Spleen: Normal. Pancreas: Normal. Adrenal glands: Normal. Kidneys/bladder: The kidneys enhance normally. There are multiple small benign peripelvic cysts of both kidneys. The urinary bladder has a normal unenhanced appearance. Pelvic structures: The prostate gland measures 4.0 cm in transverse dimension. The seminal vesicles are normal. There is no free fluid the pelvis. There is no pelvic or inguinal lymphadenopathy. GI tract: There is severe sigmoid diverticulosis without diverticulitis. There is stool throughout the remainder of the colon. There is a normal appendix demonstrated. Abdominal wall and mesentery: There are no abdominal wall defects. There is no mesenteric or retroperitoneal lymphadenopathy. Abdominal aorta and vascular structures: The abdominal aorta, inferior vena cava, and portal venous system are normal. Bony structures: There is mild dextroscoliosis of the thoracolumbar spine. The SI joints and hips are normal. IMPRESSION: 1. Partially calcified gallbladder wall. Calcification of the gallbladder wall is associated with the development of gallbladder carcinoma. 2. Colonic diverticulosis without diverticulitis. 3. Mild constipation. 4. Mild dextroscoliosis of the thoracolumbar spine. <Electronically signed by Woo Negro > 03/23/21 [id number]
[2021-03-23 16:48] VITALS: BP 133/71
[2021-03-23] MEDS ORDERED: ALPRAZolam 0.5 MG TAB PO ONE (17:00)
--- NOTE | 2021-03-23 17:45 | IPNPDOC ---
Date Seen The patient was seen on 03/23/21. Progress Note SUBJECTIVE: Patient was seen examined at bedside. States that he has no fevers no chills no nausea no vomiting abdominal pain is 4 out of 10 at which is at baseline. He also complains of swelling below his right earlobe. He has been followed by dermatology for this and had previously done an unspecified injection. He believes that they thought it was a sebaceous cyst although he is not certain. OBJECTIVE PHYSICAL EXAMINATION: VITAL SIGNS: please see below General: NAD, comfortable HEENT: PERRLA, EOMI, sclerae clear. Swelling below the right earlobe. Soft fluctuant mildly tender to palpation. Neck: supple, normal ROM, no JVD Respiratory: lungs CTAB, no wheeze, no rales, no crackles CVS: RRR, normal S1, S2, no murmurs Abdo: Soft nondistended without rigidity or guarding. Patient has mild pain to palpation of the right upper quadrant. He has a negative Osuna sign. Extremities: no edema, pulses 2+ MSK: no joint deformities, normal ROM Neuro: no focal neuro deficits, moving all 4 extremities, CN2-12 intact. Strength 5/5 in all 4 extremities. No nystagmus. Psych: calm, cooperative, AAO x 3 LABORATORY DATA, IMAGING STUDIES, MICROBIOLOGY: Please see below. DVT prophylaxis ordered?: Early ambulation Patient is a pleasant 36-year-old male to the ER on March 21, 2021 by police for suicidal thoughts. Patient has a history of depression, gallstones with a suspected history of biliary colic. Hospitalist service has been consulted for medical intake. Patient reports difficulties in relationships particularly with his current girlfriend with whom he shares a 5-year-old son. He feels hopeless and continues to have suicidal thoughts with some plan. Patient also reports ongoing work-up by his primary care doctor for right upper quadrant pain. He had ultrasound performed on 02/2321 showing gallstones and biliary sludge without evidence for acute cholecystitis. Patient continues to have baseline 5 out of 10 right upper quadrant pain. He request that we perform CT imaging of his abdomen. On review of the prior ultrasound findings show an echogenic 1.8 cm area at the fundus with posterior shadowing representing stone sludge and less likely mass in the gallbladder. Patient denies any chest pain palpitations shortness of breath fevers chills nausea vomiting diarrhea or constipation. He is currently tolerating a regular diet. Does not have leukocytosis. Does not have elevation of his bilirubin nor any transaminitis. . PLAN: Suicidal ideation with plan: Per psychiatry Right upper quadrant pain: Worked up by PCP. Ultrasound showing 1.8 cm echogenic area possibly due to gallstones or sludge or less likely mass. Patient has baseline pain right now at 5 out of 10. Patient has no fevers no chills. He has not vomited or had diarrhea. He does not have a leukocytosis. He does not have elevation of direct or indirect bilirubin. He does not have any transaminitis. He has no jaundice or scleral icterus on physical examination. CT scan of the abdomen with and without contrast showing calcification of the gall fundus of the gallbladder wall. Concern for malignancy of the gallbladder. I informed the patient of this finding which is unusual given his young age. Patient is obviously distressed and concerned with a possible diagnosis of cancer. We will proceed with a dytnamic MRI with and w ithout contrast with MRCP imaging to better differentiate between gallbladder wall calcification and gallstone calcification. Discussed this plan with Dr. Yang of psychiatry Right neck swelling: Patient reports there was a sebaceous cyst presently at the site. I suspect this may be a sialolith. We will try conservative management such as warm compress and a single administration ibuprofen. We will repeat lab work tomorrow morning. If patient continues to have worsening pain we will obtain CT neck. Thank you for involving me in the care of this patient. I will follow up on the CT study. Patient will require a referral to general surgery on discharge. Please reconsult us as needed. VS, I&O, 24H, Fishbone Vital Signs/I&O Vital Signs Date Time Temp Pulse Resp B/P (MAP) Pulse Ox O2 Delivery O2 Flow Rate FiO2 03/23/21 16:48 97.8 89 16 133/71 (91) 98 Room Air CHAD HUMPHRIES MD Mar 23, 2021 17:45
[2021-03-23] MEDS ORDERED: IBUPROFEN 400MG TAB PO ONE (18:00)
[2021-03-23] MEDS: QUEtiapine FUMARATE 25 MG TAB PO SCH (20:39)
[2021-03-23] MEDS: traZODone 50 MG TAB PO PRN (20:39)
[2021-03-24 06:24] VITALS: BP 122/73
[2021-03-24 07:04] LABS: BASO # 0.1 10^3/uL (0.0-0.2); BASO % 0.7 % (0.0-1.0); EOS # 0.5 10^3/uL (0.0-0.5); EOS % 6.2 % (0.0-3.0); HEMATOCRIT 44.8 % (42.0-52.0); HEMOGLOBIN 14.8 g/dl (13.5-17.5); LYMPH # 2.8 10^3/uL (1.5-5.0); LYMPH % 37.2 % (24.0-44.0); MEAN CORPUSCULAR HEMOGLOBIN 30.4 pg (27.0-33.0); MONO # 0.5 10^3/uL (0.0-0.8); MONO % 6.4 % (2.0-8.0); NEUTROPHILS # 3.6 10^3/uL (1.5-8.5); NEUTROPHILS % 49.2 % (36.0-66.0); PLATELET COUNT, AUTOMATED 342 10^3/uL (150-450); RED BLOOD COUNT 4.87 10^6/uL (4.30-6.10); WHITE BLOOD COUNT 7.4 10^3/uL (4.0-10.0)
[2021-03-24 07:25] LABS: ALBUMIN 3.5 GM/DL (3.2-5.2); ALT/SGPT 22 U/L (12-78); BILIRUBIN,TOTAL 0.2 MG/DL (0.2-1.0); BLOOD UREA NITROGEN 16 MG/DL (7-18); CARBON DIOXIDE LEVEL 27 MEQ/L (21-32); CHLORIDE LEVEL 111 MEQ/L (98-107); CREATININE FOR GFR 0.74 MG/DL (0.70-1.30); GLOMERULAR FILTRATION RATE > 60.0 (>60); GLUCOSE, FASTING 89 MG/DL (70-100); POTASSIUM SERUM 4.5 MEQ/L (3.5-5.1); SODIUM LEVEL 143 MEQ/L (136-145); TOTAL PROTEIN 6.5 GM/DL (6.4-8.2)
[2021-03-24] MEDS: FLUoxetine 20 MG CAP PO SCH (09:12)
[2021-03-24] MEDS: NICOTINE 21MG/24HR 1 EA TRANSDERMAL TD PRN (09:12)
[2021-03-24] MEDS: OLANZapine ORAL DISINTEGRATING TAB 5MG PO PRN ×2 (09:12→20:45)
--- NOTE | 2021-03-24 09:25 | MHIPNPDOC ---
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 is brought by the police for suicidal thoughts. Initially patient came with the mother to the ER refused to wear mask and went away he was confronted by his mother to me told that he wanted to hurt himself she called the police and police brought him to the hospital. Patient has long history of depression he was admitted 2 years ago to [facility]. He continued follow-up he with outpatient doctors for a short time and stopped taking his medications. Reports he has been depressed for a long time however his depression has increased after the of his father 2 years ago, currently he has conflicts with his girlfriend, he feels his girlfriend is lying to him particularly her relationships in the past which is bothering him, but he is not sure whether currently she is cheating on him. According to the patient it is an intrusive thought that always come and never resolved. Currently his depression has increased his energy level is low, feels hopeless and has some suicidal thoughts without plans. Denies any manic episodes, however has some racing thoughts Patient currently sees a therapist at the [facility]. Patient has history of anxiety he thinks he is a worrier, worries about day-to-day life, has history of panic attacks and social phobia. Denies any history of psychosis Interval : Patient's CT scan of the abdomen was done yesterday, it showed calcification of gallbladder. There is high probability of malignancy. His chief power dispatcher has explained to him about the findings and his opinion and he wants to do an MRI of the abdomen. Patient is handling the situation well, still depressed and wants to get all the investigations done when he is in the hospital. Mental status examination: Neatly dressed with clean cloths, makes poor eye contact speech rate rhythm and volume are regular, psychomotor activity is normal, Mood is depressed affect is mood congruent , denied any auditory visual hallucinations, denied any suicidal homicidal ideas, insight and judgments are fair. Diagnosis: Major depressive disorder Assessment and plan: Patient does not have any suicidal thoughts, patient continues to be depressed after he was told that he has possibility of malignancy of his gallbladder Estimated length of stay 2 to 3 days Time spent is 25 minutes Vital Signs Vital Signs Date Time Temp Pulse Resp B/P (MAP) Pulse Ox O2 Delivery O2 Flow Rate FiO2 03/24/21 06:24 99.2 65 18 122/73 (89) 99 Room Air Laboratory Data 24H Labs Laboratory Tests 2 03/24/21 06:32: Immature Granulocyte % (Auto) 0.3, Neutrophils (%) (Auto) 49.2, Lymphocytes (%) (Auto) 37.2, Monocytes (%) (Auto) 6.4, Eosinophils (%) (Auto) 6.2H, Basophils (%) (Auto) 0.7, Neutrophils # (Auto) 3.6, Lymphocytes # (Auto) 2.8, Monocytes # (Auto) 0.5, Eosinophils # (Auto) 0.5, Basophils # (Auto) 0.1, Nucleated Red Blood Cells % (auto) 0.0, Anion Gap 5L, Glomerular Filtration Rate > 60.0, Calcium Level 9.0, Total Bilirubin 0.2, Aspartate Amino Transf (AST/SGOT) 12, Alanine Aminotransferase (ALT/SGPT) 22, Alkaline Phosphatase 44L, Total Protein 6.5, Albumin 3.5, Albumin/Globulin Ratio 1.2 CBC/BMP Laboratory Tests 03/24/21 06:32 Current Medications Current Medications Medications (Trade) Dose Ordered Sig/Renate Route PRN Reason Start Time Stop Time Status Last Admin Dose Admin Acetaminophen (Tylenol Tab) 650 mg Q6HP PRN PO HEADACHE or MILD DISCOMFORT 03/21/21 19:55 03/22/21 19:32 Al Hydrox/Mg Hydrox/Simethicone (Mylanta) 30 ml Q4HP PRN PO HEARTBURN/INDIGESTION 03/21/21 19:55 Fluoxetine HCl (PROzac) 20 mg QAM PO 03/22/21 09:00 03/23/21 11:13 DC 03/23/21 09:46 Fluoxetine HCl (PROzac) 40 mg QAM PO 03/24/21 09:00 Home Med (Home Med List Complete!) ASDIRECTED XX 03/21/21 00:05 03/21/21 00:08 DC Magnesium Hydroxide (Milk Of Magnesia) 30 ml DAILYPRN PRN PO CONSTIPATION 03/21/21 19:55 Nicotine (Nicoderm Cq 21mg) 1 patch DAILY PRN TD NICOTINE WITHDRAWAL 03/21/21 19:55 03/23/21 09:46 Olanzapine (ZyPREXA ZYDIS) 5 mg Q6HP PRN PO ANXIETY/AGITATION 03/21/21 19:55 03/23/21 20:39 Quetiapine Fumarate (SEROquel) 25 mg QHS PO 03/22/21 21:00 03/23/21 20:39 Trazodone HCl (Desyrel) 50 mg QHSP PRN PO INSOMNIA 03/21/21 19:55 03/23/21 20:39 Allergies Coded Allergies: Sulfa (Sulfonamide Antibiotics) (Verified Allergy, Unknown, 12/12/18) rash sulfamethoxazole (Verified Allergy, Unknown, 12/12/18) rash trimethoprim (Verified Allergy, Unknown, 12/12/18) rash BRITTNI BERMUDEZ MD Mar 24, 2021 09:25
[2021-03-24] MEDS ORDERED: NICOTINE 21MG/24HR 1 EA TRANSDERMAL TD ONE (13:15)
--- NOTE | 2021-03-24 13:52 | REPVR ---
PROCEDURE INFORMATION: Exam: MR Abdomen Without Contrast Exam date and time: 03/24/2021 12:43 PM Age: 36 years old Clinical indication: Abdominal pain; Localized; Right upper quadrant (ruq); Additional info: Dynamic mri mrcp to evaluate calcified gallbladder seen CT TECHNIQUE: Imaging protocol: MR of the abdomen without contrast. COMPARISON: CT ABD PELVIS W/O FOL BY WIT 03/23/2021 8:59 AM FINDINGS: Lungs: The visualized lung bases are clear. Liver: No mass. Gallbladder and bile ducts: No obvious focal liver lesions or gross ductal dilatation. No filling defects in the nondilated common duct. Artifact versus linear filling defect in the dependent gallbladder. No definite gallstones or evidence of gallbladder wall thickening. There is no signal void to suggest gallbladder calcifications, and the noncontrast CT images also did not suggest any mural calcifications here. Pancreas: The noncontrast pancreas looks to be within normal limits. Spleen: The spleen is not enlarged. Adrenal glands: No adrenal mass. Kidneys and ureters: No solid renal mass or hydronephrosis. Stomach and bowel: The stomach is poorly distended. No gross bowel obstruction. Intraperitoneal space: No ascites. Arteries: No aortic aneurysm. Lymph nodes: No lymphadenopathy. Bones/joints: No marrow signal abnormality. Soft tissues: Unremarkable. IMPRESSION: 1. No gallbladder calcification. 2. No definite gallstones or choledocholithiasis. Linear abnormality in the dependent fundus of the gallbladder possibly artifactual. Is this is not seen on the CT scan. Electronically signed by: Hayden Callaway On 03/24/2021 13:52:32 PM
--- NOTE | 2021-03-24 13:57 | REPVR ---
PROCEDURE INFORMATION: Exam: MR Abdomen Without and With Contrast Exam date and time: 03/24/2021 12:44 PM Age: 36 years old Clinical indication: Abdominal pain; Localized; Right upper quadrant (ruq); Additional info: Gallbaldder TECHNIQUE: Imaging protocol: MR of the abdomen without and with intravenous contrast. Contrast material: PROHANCE; Contrast volume: 15 ml; Contrast route: INTRAVENOUS (IV); COMPARISON: CT ABD PELVIS W/O FOL BY WIT 03/23/2021 8:59 AM FINDINGS: Lungs: The included lung bases are clear. Liver: No mass. Gallbladder and bile ducts: Limited enhancement along the gallbladder wall, similar to the CT scan, without signal voids to suggest calcifications. Linear signal void in the most dependent aspect of the gallbladder fundus might be related to artifact certainly does not look like a classic stone or mass within. No choledocholithiasis. No hepatic lesion or ductal dilatation. Pancreas: No pancreatic mass. Spleen: The spleen is homogeneous and not enlarged. Adrenal glands: No adrenal mass. Kidneys and ureters: No focal renal lesions. No renal obstruction. Stomach and bowel: Visualized stomach and intestines are unremarkable. Intraperitoneal space: No free fluid. Arteries: No aortic aneurysm. Veins: No venous thrombus. Lymph nodes: No lymphadenopathy. No lymphadenopathy. Bones/joints: No marrow signal abnormality. Soft tissues: Unremarkable. IMPRESSION: 1. No acute abnormality. 2. No mass. 3. No definite gallstones or gallbladder wall calcifications. 4. Mild enhancement of the gallbladder wall without stones or choledocholithiasis. Electronically signed by: Hayden Callaway On 03/24/2021 13:57:02 PM
[2021-03-24] MEDS: GABAPENTIN 300 MG CAP PO SCH ×2 (15:48→20:39)
--- NOTE | 2021-03-24 16:31 | ECGEPIP ---
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
--- NOTE | 2021-03-24 17:05 | IPNPDOC ---
Date Seen The patient was seen on 03/24/21. Progress Note SUBJECTIVE: Patient was seen examined at bedside. States that he has no fevers no chills no nausea no vomiting abdominal pain is 4 out of 10 at which is at baseline. He also complains of swelling below his right earlobe. He has been followed by dermatology for this and had previously done - kenalog. He believes that they thought it was a sebaceous cyst although he is not certain. OBJECTIVE PHYSICAL EXAMINATION: VITAL SIGNS: please see below General: NAD, comfortable HEENT: PERRLA, EOMI, sclerae clear. Swelling below the right earlobe. Soft fluctuant mildly tender to palpation. Neck: supple, normal ROM, no JVD Respiratory: lungs CTAB, no wheeze, no rales, no crackles CVS: RRR, normal S1, S2, no murmurs Abdo: Soft nondistended without rigidity or guarding. Patient has mild pain to palpation of the right upper quadrant. He has a negative Osuna sign. Extremities: no edema, pulses 2+ MSK: no joint deformities, normal ROM Neuro: no focal neuro deficits, moving all 4 extremities, CN2-12 intact. Strength 5/5 in all 4 extremities. No nystagmus. Psych: calm, cooperative, AAO x 3 LABORATORY DATA, IMAGING STUDIES, MICROBIOLOGY: Please see below. MRI abdo w and wo contrast (03/24/21): FINDINGS: Lungs: The included lung bases are clear. Liver: No mass. Gallbladder and bile ducts: Limited enhancement along the gallbladder wall, similar to the CT scan, without signal voids to suggest calcifications. Linear signal void in the most dependent aspect of the gallbladder fundus might be related to artifact certainly does not look like a classic stone or mass within. No choledocholithiasis. No hepatic lesion or ductal dilatation. Pancreas: No pancreatic mass. Spleen: The spleen is homogeneous and not enlarged. Adrenal glands: No adrenal mass. Kidneys and ureters: No focal renal lesions. No renal obstruction. Stomach and bowel: Visualized stomach and intestines are unremarkable. Intraperitoneal space: No free fluid. Arteries: No aortic aneurysm. Veins: No venous thrombus. Lymph nodes: No lymphadenopathy. No lymphadenopathy. Bones/joints: No marrow signal abnormality. Soft tissues: Unremarkable. IMPRESSION: 1. No acute abnormality. 2. No mass. 3. No definite gallstones or gallbladder wall calcifications. 4. Mild enhancement of the gallbladder wall without stones or choledocholithiasis. MRCP (03/24/21): FINDINGS: Lungs: The visualized lung bases are clear. Liver: No mass. Gallbladder and bile ducts: No obvious focal liver lesions or gross ductal dilatation. No filling defects in the nondilated common duct. Artifact versus linear filling defect in the dependent gallbladder. No definite gallstones or evidence of gallbladder wall thickening. There is no signal void to suggest gallbladder calcifications, and the noncontrast CT images also did not suggest any mural calcifications here. Pancreas: The noncontrast pancreas looks to be within normal limits. Spleen: The spleen is not enlarged. Adrenal glands: No adrenal mass. Kidneys and ureters: No solid renal mass or hydronephrosis. Stomach and bowel: The stomach is poorly distended. No gross bowel obstruction. Intraperitoneal space: No ascites. Arteries: No aortic aneurysm. Lymph nodes: No lymphadenopathy. Bones/joints: No marrow signal abnormality. Soft tissues: Unremarkable. IMPRESSION: 1. No gallbladder calcification. 2. No definite gallstones or choledocholithiasis. Linear abnormality in the dependent fundus of the gallbladder possibly artifactual. Is this is not seen on the CT scan. DVT prophylaxis ordered?: Early ambulation Patient is a pleasant 36-year-old male to the ER on March 21, 2021 by police for suicidal thoughts. Patient has a history of depression, gallstones with a suspected history of biliary colic. Hospitalist service has been consulted for medical intake. Patient reports difficulties in relationships particularly with his current girlfriend with whom he shares a 5-year-old son. He feels hopeless and continues to have suicidal thoughts with some plan. Patient also reports ongoing work-up by his primary care doctor for right upper quadrant pain. He had ultrasound performed on 02/2321 showing gallstones and biliary sludge without evidence for acute cholecystitis. Patient continues to have baseline 5 out of 10 right upper quadrant pain. He request that we perform CT imaging of his abdomen. On review of the prior ultrasound findings show an echogenic 1.8 cm area at the fundus with posterior shadowing representing stone sludge and less likely mass in the gallbladder. Patient denies any chest pain palpitations shortness of breath fevers chills nausea vomiting diarrhea or constipation. He is currently tolerating a regular diet. Does not have leukocytosis. Does not have elevation of his bilirubin nor any transaminitis. . PLAN: Suicidal ideation with plan: Per psychiatry Right upper quadrant pain: Worked up by PCP. Ultrasound showing 1.8 cm ech ogenic area possibly due to gallstones or sludge or less likely mass. Patient has baseline pain right now at 5 out of 10. Patient has no fevers no chills. He has not vomited or had diarrhea. He does not have a leukocytosis. He does not have elevation of direct or indirect bilirubin. He does not have any transaminitis. He has no jaundice or scleral icterus on physical examination. CT scan of the abdomen with and without contrast showing calcification of the gall fundus of the gallbladder wall. Concern for malignancy of the gallbladder. I informed the patient of this finding which is unusual given his young age. Patient is obviously distressed and concerned with a possible diagnosis of cancer. Reviewed MRI and MRCP results discussed with the patient. There is no gallbladder calcification seen. No definite gallstones or choledocholithiasis. The new dramality in the dependent fungus of the gallbladder possibly artifactual. I encouraged the patient to follow-up with his primary care doctor and to get a referral to general surgery for evaluation of persistent right upper quadrant pain. He is visibly relieved by this news. Right neck swelling: Patient reports there was a sebaceous cyst presently at the site. We will try conservative management such as warm compress and a single administration ibuprofen. Patient states that his pain persists as does the swelling. He underwent a kenalog injection in [facility] clinic in 01/2021. He does not have any white count or fevers on lab work. We will start a course of Doxy 100 mg BID x 7 days. He needs f/u with Dr. Daivs for cyst excision. Thank you for involving me in the care of this patient. VS, I&O, 24H, Yanivbone Vital Signs/I&O Vital Signs Date Time Temp Pulse Resp B/P (MAP) Pulse Ox O2 Delivery O2 Flow Rate FiO2 03/24/21 06:24 99.2 65 18 122/73 (89) 99 Room Air Laboratory Data 24H LABS Laboratory Tests 2 03/24/21 06:32: Immature Granulocyte % (Auto) 0.3, Neutrophils (%) (Auto) 49.2, Lymphocytes (%) (Auto) 37.2, Monocytes (%) (Auto) 6.4, Eosinophils (%) (Auto) 6.2H, Basophils (%) (Auto) 0.7, Neutrophils # (Auto) 3.6, Lymphocytes # (Auto) 2.8, Monocytes # (Auto) 0.5, Eosinophils # (Auto) 0.5, Basophils # (Auto) 0.1, Nucleated Red Blood Cells % (auto) 0.0, Anion Gap 5L, Glomerular Filtration Rate > 60.0, Calcium Level 9.0, Total Bilirubin 0.2, Aspartate Amino Transf (AST/SGOT) 12, Alanine Aminotransferase (ALT/SGPT) 22, Alkaline Phosphatase 44L, Total Protein 6.5, Albumin 3.5, Albumin/Globulin Ratio 1.2 CBC/BMP Laboratory Tests 03/24/21 06:32 CHAD HUMPHRIES MD Mar 24, 2021 17:05
[2021-03-24 17:26] VITALS: BP 137/77
[2021-03-24] MEDS: QUEtiapine FUMARATE 25 MG TAB PO SCH (20:39)
[2021-03-24] MEDS: DOXYCYCLINE HYCLATE 100MG TABLET PO SCH (20:39)
[2021-03-24] MEDS ORDERED: AUGMENTIN 875 MG TAB PO SCH (21:00)
[2021-03-24] MEDS: traZODone 50 MG TAB PO PRN (21:34)
[2021-03-25 06:42] VITALS: BP 136/76
--- NOTE | 2021-03-25 08:39 | REP ---
INDICATION: SWELLING BELOW R EARLOBE. COMPARISON: None. TECHNIQUE: Soft tissue sonography targeted to the area of interest. FINDINGS: Soft tissue ultrasound over the right jaw and below the right ear lobe demonstrates a hypoechoic mass oval in shape measuring 2.6 x 0.9 x 1.7 cm. Its long axis is parallel to the skin. It it is felt to be in the area of the right parotid gland. There are normal appearing lymph nodes seen in the right neck adjacent to this. The largest of these measures 1.1 x 0.6 x 0.4 cm. IMPRESSION: 2.6 cm solid lesion at the area of interest. Cannot exclude parotid neoplasm. Soft tissue neck CT study should be considered. Preferably with IV contrast. <Electronically signed by Gurinder Dowell > 03/25/21 [id number]
[2021-03-25] MEDS: NICOTINE 21MG/24HR 1 EA TRANSDERMAL TD PRN (09:04)
[2021-03-25] MEDS: FLUoxetine 20 MG CAP PO SCH (09:04)
[2021-03-25] MEDS: DOXYCYCLINE HYCLATE 100MG TABLET PO SCH (09:04)
[2021-03-25] MEDS: GABAPENTIN 300 MG CAP PO SCH (09:05)
[2021-03-25] MEDS: OLANZapine ORAL DISINTEGRATING TAB 5MG PO PRN (09:07)
[2021-03-25] MEDS ORDERED: QUET1TAB17 PO (10:25)
[2021-03-25] MEDS ORDERED: FLUO20CA22 PO (10:25)
[2021-03-25] MEDS ORDERED: GABA-282 PO (10:25)
[2021-03-25] MEDS ORDERED: NICO21PAT TD (10:25)
[2021-03-25] MEDS ORDERED: DOXY100T PO (10:30)
[2021-03-25] MEDS ORDERED: OLAN5ZYD PO (10:31)
--- NOTE | 2021-03-25 14:45 | MHDSPDOC ---
[facility] Discharge Summary Discharge Summary DATE OF ADMISSION: Mar 21, 2021 at 19:52 DATE OF DISCHARGE: Mar 25, 2021 at 13:32 DISCHARGE DIAGNOSES: Major depressive disorder recurrent Generalized anxiety disorder Panic disorder without agoraphobia Social anxiety Cannabis use disorder REASON FOR ADMISSION: Patient is a 36-year-old Single, Employed, Domiciled, , Male who reported that he was having suicidal ideations. He was rep orting depression for a long time however his depression has increased after the of his father 2 years ago, currently he has conflicts with his girlfriend with whom he lives along with his five 5-year-old son. Initially patient came with the mother to the ER refused to wear mask and went away he was confronted by his mother to me told that he wanted to hurt himself she called the police and police brought him to the hospital. Patient has long history of depression he was admitted 2 years ago to [facility]. He continued follow-up he with outpatient doctors for a short time and stopped taking his medications. He feels his girlfriend is lying to him particularly her relationships in the past which is bothering him, but he is not sure whether currently she is cheating on him. According to the patient it is an intrusive thought that always come and never resolved. Currently his depression has increased his energy level is low, feels hopeless and has some suicidal thoughts without plans. Denies any manic episodes, however has some racing thoughts Patient currently sees a therapist [facility]. Patient has history of anxiety he thinks he is a worrier, worries about day-to-day life, has history of panic attacks and social phobia. VITAL SIGNS: See below. CONSULTANTS INVOLVED: See Medical H + P by Hospitalist TREATMENT AND PROGRESS ON THE UNIT: Patient was admitted to the [facility] on a legal status was afforded the following treatment modalities: 1) Individual Therapy 2) Group Therapy 3) Medication Management 4) Milieu Therapy 5) Safe Environment HOSPITAL COURSE: Patient was admitted to [facility] on a legal status. Patient's medications were increased to therapeutic levels and he found medications beneficial and tolerated them well. Mood, anxiety, and intrusive thoughts improved with treatment. Pt attended groups daily during stay. Pts symptoms improved with treatment. On day of discharge pt. denied depression, anxiety, insomnia, SI/HI, hallucinations, delusions. He reports that he was hoping to return to his home life, wishing that he had not missed putting his son on the first day of school which was yesterday. States that his ruminating ad intrusive thoughts had decreased and this made his anxiety improved. Pt was discharged home with follow-up with his [facility] therapist. Pt felt safe for discharge. DISCHARGE ASSESSMENT: In today's interview, patient is alert and oriented, pt.s dress is appropriate. Hygiene and grooming is well-kempt. Smiles on approach and is pleasant and engaged in the interview. Denies depression and anxiety. Denies suicidal and homicidal ideation, planning or intent. Denies and is not observed with franki, psychotic symptoms of delusions, bizarre thinking, obsessions, paranoia, ruminations illogical thoughts, flight of ideas or having poor insight and judgement. Reinforced with patient need to abstain from alcohol and drugs. At discharge patient has normal mentation, declines further hospitalization on a voluntary status and meets criteria for discharge today. Patient encouraged to return to hospital if symptoms worsen or change and encouraged to call unit if he/she/they needs to speak to provider for questions regarding medications or care. MENTAL STATUS EXAMINATION ON DISCHARGE: Patient is a 36-year-old Single, Employed, Domiciled, , Male who reported that he was having suicidal ideations. Speech: Is fluid, conversant, normal rate, tone and volume Language skills are intact Thought processes including: linear and goal oriented Thought content: denies depression and anxiety. Denies suicidal/homicidal ideation, planning or intent. Abstract reasoning, and computation: fair Description of associations: denies, none observed Description of abnormal or psychotic thoughts: denies, none observed. Judgment: fair Insight: fair Orientation: alert and oriented to person, place, time and situation Recent and remote memory: intact Attention span and concentration: good Language: expansive Fund of knowledge: average Mood: Euthymic Mood Affect: reactive Suicide Risk Assessment: 1) Does the patient wish to be ? No 2) Since your admission, have you had any actual thought of killing yourself? No 3) Since your admission, have you been thinking about how you might do this? No 4) Since your admission, have you had these thoughts and had some intention of acting on them? No 5) Since your admission, have you started to work out or worked out the details of how to kill yourself? No 5A) Do you intent to carry out this plan? No and NA 6) Have you ever done anything, started anything, or prepared to do anything with any intent to ? No 6A) How long since your admission did you do any of these? NA MEDICATIONS ON DISCHARGE: See Medication Reconciliation PLAN/FOLLOWUP ARRANGEMENTS:Patient sees a therapist through his [facility] The amount of time spent in the coordination of care for this patient was approximately 25 minutes. ETOH/Disorder Med Rx ETOH/DRUG DISORDER RX: N/A Vital Signs/I&Os Vital Signs Date Time Temp Pulse Resp B/P (MAP) Pulse Ox O2 Delivery O2 Flow Rate FiO2 03/25/21 06:42 98.4 58 16 136/76 (96) 96 Room Air Medications Scheduled Doxycycline Hyclate (Doxycycline Hyclate) 100 Mg Tablet, 100 MG PO BID for Cyst, #11 Fluoxetine Hcl (Fluoxetine HCl) 20 Mg Capsule, 40 MG PO QAM for Depression for 7 Days, #7 Gabapentin (Gabapentin) 300 Mg Capsule, 300 MG PO TID for Anxiety for 7 Days, #21 Quetiapine Fumarate (Quetiapine Fumarate) 25 Mg Tablet, 25 MG PO QHS for Mood for 7 Days, #7 Scheduled PRN Nicotine (Nicotine Patch) 21 Mg Patch.td24, 1 PATCH TD DAILY PRN for NICOTINE WITHDRAWAL for 7 Days, #7 Olanzapine (Olanzapine Odt) 5 Mg Tab.rapdis, 5 MG PO DAILYPRN PRN for ANXIETY/AGITATION, #7 Allergies Coded Allergies: Sulfa (Sulfonamide Antibiotics) (Verified Allergy, Unknown, 12/12/18) rash sulfamethoxazole (Verified Allergy, Unknown, 12/12/18) rash trimethoprim (Verified Allergy, Unknown, 12/12/18) LIDA Roque [employer] Mar 25, 2021 14:39
== END 2021-03-25 13:32 | disposition home or self-care (01) | DRG 751 ==
LOC: M ED 19:57 → M ED INP 03-21 19:52 → M PSY 03-21 21:20
PROVIDERS: ADMIT Psychiatry & Neurology Psychiatry; ATTEND Psychiatry & Neurology Psychiatry
DX: F33.9 Major depressive disorder, recurrent, unspecified (principal); R45.851 Suicidal ideations; F41.1 Generalized anxiety disorder; F41.0 Panic disorder [episodic paroxysmal anxiety]; F12.10 Cannabis abuse, uncomplicated; F17.200 Nicotine dependence, unspecified, uncomplicated; K11.5 Sialolithiasis; F40.10 Social phobia, unspecified; Z20.822 Contact with and (suspected) exposure to COVID-19; Z88.2 Allergy status to sulfonamides; Z88.8 Allergy status to other drugs, medicaments and biological substances

== ENCOUNTER 2021-03-31 18:54 | Inpatient (IN) | payer BC ==
[~2021-03-31] VITALS: Ht 177.8 cm; Wt 82.6 kg
[~2021-03-31 18:54] MED LIST changes: +DOXY100T PO; +FLUO20CA22; +GABA-282 PO; +NICO21PAT TD; +OLAN5ZYD PO; +QUET1TAB17 PO
[2021-03-31] MEDS ORDERED: QUEtiapine FUMARATE 25 MG TAB PO SCH (21:00)
[2021-03-31 21:25] LABS: HEMATOCRIT 45.5 % (42.0-52.0); HEMOGLOBIN 15.2 g/dl (13.5-17.5); MEAN CORPUSCULAR HEMOGLOBIN 30.6 pg (27.0-33.0); MEAN CORPUSCULAR HGB CONC 33.4 g/dl (32.0-36.5); MEAN CORPUSCULAR VOLUME 91.7 fl (80.0-96.0); PLATELET COUNT, AUTOMATED 371 10^3/uL (150-450); RED BLOOD COUNT 4.96 10^6/uL (4.30-6.10)
[2021-03-31 22:02] LABS: ACETAMINOPHEN LEVEL < 2.0 UG/ML (10.0-30.0); ALBUMIN 3.8 GM/DL (3.2-5.2); ALT/SGPT 46 U/L (12-78); BILIRUBIN,DIRECT < 0.1 MG/DL (0.0-0.2); BILIRUBIN,TOTAL 0.4 MG/DL (0.2-1.0); BLOOD UREA NITROGEN 14 MG/DL (7-18); CALCIUM LEVEL 9.1 MG/DL (8.5-10.1); CARBON DIOXIDE LEVEL 29 MEQ/L (21-32); CHLORIDE LEVEL 107 MEQ/L (98-107); CREATININE FOR GFR 0.64 MG/DL (0.70-1.30); ETHYL ALCOHOL (ETHANOL) 0.003 % (0.000-0.010); GLOMERULAR FILTRATION RATE > 60.0 (>60); GLUCOSE, FASTING 81 MG/DL (70-100); POTASSIUM SERUM 4.1 MEQ/L (3.5-5.1); SALICYLATE LEVEL 1.8 MG/DL (5.0-30.0); SODIUM LEVEL 142 MEQ/L (136-145); TOTAL PROTEIN 6.8 GM/DL (6.4-8.2)
[2021-03-31 22:08] LABS: AMPHETAMINES LEVEL URINE NEGATIVE (NEGATIVE); BARBITURATES URINE NEGATIVE (NEGATIVE); BENZODIAZEPINES URINE NEGATIVE (NEGATIVE); CANNABINOIDS URINE POSITIVE (NEGATIVE); COCAINE METABOLITE URINE NEGATIVE (NEGATIVE); METHADONE URINE NEGATIVE (NEGATIVE); OPIATES URINE NEGATIVE (NEGATIVE); PHENCYCLIDINE URINE NEGATIVE (NEGATIVE)
[2021-03-31 22:11] LABS: RSV AMPLIFICATION NEGATIVE (NEGATIVE)
[2021-03-31] MEDS ORDERED: ACETAMINOPHEN TAB 650MG DOSE (2X325MG) PO PRN (22:35)
[2021-03-31] MEDS ORDERED: MOM 30ML SUSPENSION UDC PO PRN (22:35)
[2021-03-31 23:01] VITALS: BP 133/85
[2021-03-31] MEDS: traZODone 50 MG TAB PO PRN (23:24)
[2021-03-31] MEDS: GABAPENTIN 300 MG CAP PO SCH (23:24)
[2021-04-01 06:21] VITALS: BP 136/74
[2021-04-01] MEDS: DOXYCYCLINE HYCLATE 100MG TABLET PO SCH ×2 (08:43→20:10)
[2021-04-01] MEDS: GABAPENTIN 300 MG CAP PO SCH ×3 (08:43→20:10)
[2021-04-01] MEDS: OLANZapine ORAL DISINTEGRATING TAB 5MG PO PRN ×2 (08:46→17:52)
[2021-04-01] MEDS ORDERED: FLUoxetine 20 MG CAP PO SCH (09:00)
[2021-04-01] MEDS: NICOTINE 14 MG/24 HR TRANSDERMAL TD PRN (09:00)
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
[2021-04-01] MEDS: busPIRone 10 MG TAB PO SCH ×2 (11:53→20:10)
[2021-04-01] MEDS: buPROPion **XL** TABLET 150MG (WELLBUTRIN XL) PO SCH (11:54)
--- NOTE | 2021-04-01 12:25 | HPEPDOC ---
[facility] Medical History & Physical Date of Admission Apr 01, 2021 Date of Service: Apr 01, 2021 History and Physical CHIEF COMPLAINT: suicidal ideation HISTORY OF PRESENT ILLNESS: Patient is a pleasant 36-year-old male to the ER on March 21, 2021 by police for suicidal thoughts. Patient has a history of depression, gallstones with a suspected history of biliary colic. Hospitalist service has been consulted for medical intake. Patient reports difficulties in relationships particularly with his current girlfriend with whom he shares a 5-year-old son. He feels hopeless and continues to have suicidal thoughts with some plan. Patient also reports ongoing work-up by his primary care doctor for right upper quadrant pain. Patient was last seen approximately 1 week ago for right upper quadrant pain during which time a CT abdomen without contrast showed concern for occult bladder calcification indicative of a possible gallbladder cancer. We performed an MRI and MRCP of the abdomen showing no gallbladder calcification no definitive gallstones or choledocholithiasis. At the time the patient was referred back to general surgery however he has not yet followed up. He has seen his primary care doctor. Finally the patient also complains of a cyst below his right earlobe for which he is being followed by dermatology. He was seen in their clinic after last discharged and continued for 2-week course of antibiotics. He is planned for an excision by dermatology clinic after discharge. Patient denies any chest pain shortness of breath reputations nausea vomiting or diarrhea at this time. PAST MEDICAL HISTORY: Depression anxiety Right upper quadrant pain with ultrasound findings of gallstones and sludge possibly related to biliary colic. Undergoing work-up by primary. PAST SURGICAL HISTORY: Remote history of hernia repair in childhood. SOCIAL HISTORY: Active smoker Consumes alcohol socially She is a 5-year-old son with his girlfriend. FAMILY HISTORY: Reports history of cancer in the family unable to specify further ALLERGIES: Please see below. REVIEW OF SYSTEMS: 10 point review of systems was conducted. Relevant findings are noted in the HPI. PHYSICAL EXAMINATION: VITAL SIGNS: please see below General: NAD, comfortable HEENT: PERRLA, EOMI, sclerae clear Neck: supple, normal ROM, no JVD Respiratory: lungs CTAB, no wheeze, no rales, no crackles CVS: RRR, normal S1, S2, no murmurs Abdo: Soft nondistended without rigidity or guarding. Patient has mild pain to palpation of the right upper quadrant. He has a negative Osuna sign. Extremities: no edema, pulses 2+ MSK: no joint deformities, normal ROM Neuro: no focal neuro deficits, moving all 4 extremities, CN2-12 intact. Streng th 5/5 in all 4 extremities. No nystagmus. Psych: calm, cooperative, AAO x 3 LABORATORY DATA: See below. IMAGING: Gallbladder ultrasound dated 03/10/2021 performed as an outpatient. Listed here for reference. IMPRESSION: Findings most likely representing gallbladder sludge and stones and less likely representing mass. Consider pre and postcontrast CT of the abdomen for further investigation if necessary. MICROBIOLOGY: Please see below. ASSESSMENT: Patient is a pleasant 36-year-old male to the ER on March 21, 2021 by police for suicidal thoughts. Patient has a history of depression, gallstones with a suspected history of biliary colic. Hospitalist service has been consulted for medical intake. Patient reports difficulties in relationships particularly with his current girlfriend with whom he shares a 5-year-old son. He feels hopeless and continues to have suicidal thoughts with some plan. Patient also reports ongoing work-up by his primary care doctor for right upper quadrant pain. Patient was last seen approximately 1 week ago for right upper quadrant pain during which time a CT abdomen without contrast showed concern for occult bladder calcification indicative of a possible gallbladder cancer. We performed an MRI and MRCP of the abdomen showing no gallbladder calcification no definitive gallstones or choledocholithiasis. At the time the patient was referred back to general surgery however he has not yet followed up. He has seen his primary care doctor. Finally the patient also complains of a cyst below his right earlobe for which he is being followed by dermatology. He was seen in their clinic after last discharged and continued for 2-week course of antibiotics. He is planned for an excision by dermatology clinic after discharge. Patient denies any chest pain shortness of breath reputations nausea vomiting or diarrhea at this time. PLAN: Suicidal ideation with plan: Per psychiatry Right upper quadrant pain: Being followed by PCP. I referred the patient general surgery during the last admission. Encouraged to follow-up. Initial ultrasound showed gallstones and sludge. CT abdomen showed possible calcificat ion of the gallbladder wall concerning for cancer. We obtained an MRI and MRCP showing no calcification to indicate malignancy. Patient states that his abdominal pain has improved today. He has been avoiding fatty foods. Again he is encouraged to follow-up with general surgery. I reviewed his labs he does not have any transaminitis or hyperbilirubinemia. Elevated TSH: We will check free T4. Cyst (below R ear): follows with Dermatology. C/w doxycycline. US of lump from 03/24/21, showing solid features. 2.6 cm in diameter. cannot exclude parotid neoplasm. Ordered soft tissue CT neck with IV contrast. Thank you for involving me in the care of this patient. I will continue to follow. I encouraged the patient to follow-up with general surgery on discharge. Please reconsult us as needed. Vital Signs Vital Signs Date Time Temp Pulse Resp B/P (MAP) Pulse Ox O2 Delivery O2 Flow Rate FiO2 04/01/21 06:21 97.2 73 18 136/74 (94) 95 Room Air Laboratory Data Labs 24H Laboratory Tests 2 03/31/21 21:12: Nucleated Red Blood Cells % (auto) 0.0, Anion Gap 6L, Glomerular Filtration Rate > 60.0, Calcium Level 9.1, Total Bilirubin 0.4, Direct Bilirubin < 0.1, Aspartate Amino Transf (AST/SGOT) 25, Alanine Aminotransferase (ALT/SGPT) 46, Alkaline Phosphatase 41L, Total Protein 6.8, Albumin 3.8, Albumin/Globulin Ratio 1.3, Thyroid Stimulating Hormone (TSH) 5.490H, Salicylates Level 1.8L, Urine Opiates Screen NEGATIVE, Urine Methadone Screen NEGATIVE, Acetaminophen Level < 2.0L, Urine Barbiturates Screen NEGATIVE, Urine Phencyclidine Screen NEGATIVE, Urine Amphetamines Screen NEGATIVE, Urine Benzodiazepines Screen NEGATIVE, Urine Cocaine Metabolite Screen NEGATIVE, Urine Cannabinoids Screen POSITIVEH, Ethyl Alcohol Level 0.003 03/31/21 21:18: Coronavirus (COVID-19)(PCR) NEGATIVE, Influenza Type A (RT-PCR) NEGATIVE, Influenza Type B (RT-PCR) NEGATIVE, Respiratory Syncytial Virus (PCR) NEGATIVE CBC/BMP Laboratory Tests 03/31/21 21:12 Home Medications Scheduled Fluoxetine Hcl (Fluoxetine HCl) 20 Mg Capsule, 40 MG PO QAM for Depression Gabapentin (Gabapentin) 300 Mg Capsule, 300 MG PO TID for Anxiety Quetiapine Fumarate (Quetiapine Fumarate) 25 Mg Tablet, 25 MG PO QHS for Mood Scheduled PRN Olanzapine (Olanzapine Odt) 5 Mg Tab.rapdis, 5 MG PO DAILYPRN PRN for ANXIETY/AGITATION Allergies Coded Allergies: Sulfa (Sulfonamide Antibiotics) (Verified Allergy, Unknown, 12/12/18) rash sulfamethoxazole (Verified Allergy, Unknown, 12/12/18) rash trimethoprim (Verified Allergy, Unknown, 12/12/18) rash A-FIB/CHADSVASC A-FIB History Current/History of A-Fib/PAF?: No Age/Risk Factor Scoring CHADSVASC: CHADSVASC Response (Comments) Value Age Risk Factor Age < 65 years old 0 Gender Risk Factor Male 0 Hx of CHF No 0 Hx of HTN No 0 Hx of Stroke/TIA/or VTE No 0 Hx of Diabetes No 0 Hx of Vascular Disease No 0 Total 0 CHAD HUMPHRIES MD Apr 01, 2021 12:24
[2021-04-01 12:57] LABS: FREE T4 0.83 NG/DL (0.76-1.46)
[2021-04-01 16:23] VITALS: BP 121/78
[2021-04-01] MEDS: traZODone 50 MG TAB PO PRN (20:10)
[2021-04-01] MEDS ORDERED: busPIRone 10 MG TAB PO SCH (21:00)
[2021-04-02 06:40] VITALS: BP 100/59
[2021-04-02] MEDS: buPROPion **XL** TABLET 150MG (WELLBUTRIN XL) PO SCH (08:54)
[2021-04-02] MEDS: busPIRone 10 MG TAB PO SCH ×2 (08:54→20:54)
[2021-04-02] MEDS: OLANZapine ORAL DISINTEGRATING TAB 5MG PO PRN ×3 (08:54→20:57)
[2021-04-02] MEDS: GABAPENTIN 300 MG CAP PO SCH ×3 (08:54→20:54)
[2021-04-02] MEDS: DOXYCYCLINE HYCLATE 100MG TABLET PO SCH ×2 (08:55→20:54)
[2021-04-02] MEDS ORDERED: FLUoxetine 20 MG CAP PO SCH (09:00)
[2021-04-02] MEDS ORDERED: buPROPion **XL** TABLET 150MG (WELLBUTRIN XL) PO SCH (09:00)
[2021-04-02] MEDS: NICOTINE 14 MG/24 HR TRANSDERMAL TD PRN (09:26)
[2021-04-02] MEDS ORDERED: OLANZapine ORAL DISINTEGRATING TAB 5MG PO ONE (12:00)
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
[2021-04-02 16:22] VITALS: BP 140/85
[2021-04-02] MEDS: traZODone 50 MG TAB PO PRN (20:54)
[2021-04-03 07:04] VITALS: BP 136/73
[2021-04-03 07:22] LABS: CHOLESTEROL RISK RATIO 2.571 (<5)
[2021-04-03] MEDS: buPROPion **XL** TABLET 150MG (WELLBUTRIN XL) PO SCH (08:18)
[2021-04-03] MEDS: GABAPENTIN 300 MG CAP PO SCH ×3 (08:19→20:45)
[2021-04-03] MEDS: FLUoxetine 20 MG CAP PO SCH (08:19)
[2021-04-03] MEDS: DOXYCYCLINE HYCLATE 100MG TABLET PO SCH ×2 (08:19→20:45)
[2021-04-03] MEDS: busPIRone 10 MG TAB PO SCH ×2 (08:19→20:45)
[2021-04-03] MEDS: NICOTINE 14 MG/24 HR TRANSDERMAL TD PRN (08:20)
[2021-04-03] MEDS: OLANZapine ORAL DISINTEGRATING TAB 5MG PO PRN ×3 (09:09→17:59)
--- NOTE | 2021-04-03 15:10 | MHIPNPDOC ---
[facility] Progress Note Progress Note DATE OF SERVICE: 04/03/21 HISTORY: Patient self presented to the ED complaining of suicidal ideation in context of reported lack of medications having efficacy. Recently admitted to the [facility] March 21- for depression and suicidal ideation. Per chart review left the ED only to return by police due to making suicidal statement to . Interval: Patient was seen in a private interview room today, continues to report depression and vague suicidal ideation. States however that he feels "may be on getting a little better". Discussed how he continues to have anxiety after having imaging by CT on last admission March 23, which showed gallbladder calcification and concern for carcinoma followed by an MRI which showed negative imaging results. States he had had chronic abdominal pains for years and is still concerned about having some kind of pathology despite the imaging results. Reports she is always been highly anxious, and has vague physical complaints as a result, without clear findings of any pathological process. Has consulted previous physicians about these concerns reportedly without getting anywhere. Was educated on the possibility for mood and anxiety if causing some physical symptoms, stating "yeah maybe that is something". VITAL SIGNS: See below. NEW TEST RESULTS: lipid panel wnl apart from borderline elevated LDL of 103 CURRENT MEDICATIONS: See below. MENTAL STATUS EXAMINATION: Patient is a 36-year old male, who is sitting in bed with a shaved head, slouched in the hospital clothing appears stated age poor eye contact. Speech: Is increased amount, spontaneous, slightly increased rate Language skills are intact. Thought processes including: Linear, logical. Thought content: Endorses fleeting suicidal ideation, no clear intent or plan. Abstract reasoning, and computation: Intact. Description of associations: Normal. Description of abnormal or psychotic thoughts: Denies. Judgment: Fair. Insight: Improved. Orientation: Times. Recent and remote memory: Intact. Attention span and concentration: Fair. Language: [place]. Fund of knowledge: Average Mood: " Not good, about the same". Affect: Dysthymic, anxious, sullen, constricted, withdrawn, mood congruent. DIAGNOSES: 1. Major depressive disorder, recurrent, moderate, with anxious distress 2. Generalized anxiety disorder, social anxiety 3. Cannabis use disorder, moderate, states may be affecting his current social life 4. 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 Rule out OCD, PTSD, bipolar 1/2, dependent personality disorder ASSESSMENT: Patient reports some improvement in mood symptoms with augmentation of medications and reassurance, support groups. Tolerating increased dose of fluoxetine 80 mg without side effects reportedly. Has been taking olanzapine for severe as needed anxiety, allowing time for antidepressants to work. MANAGEMENT PLAN: Continue fluoxetine 80 mg, Wellbutrin and BuSpar. Review of labs shows lipid panel to be unremarkable. Will consider a standing dose of olanzapine if continues to use it consistently. Baseline metabolic labs unremarkable. TIME SPENT: 25 minutes. Vital Signs Vital Signs Date Time Temp Pulse Resp B/P (MAP) Pulse Ox O2 Delivery O2 Flow Rate FiO2 04/03/21 10:46 Room Air 04/03/21 07:04 98.0 63 20 136/73 (94) 98 Laboratory Data 24H Labs Laboratory Tests 2 04/03/21 06:27: Triglycerides Level 36, Total Cholesterol 180, LDL Cholesterol 103H, Non-HDL Cholesterol (LDL + VLDL) 110, Total HDL Cholesterol 70, Cholesterol/HDL Ratio 2.571 Current Medications Current Medications Medications (Trade) Dose Ordered Sig/Renate Route PRN Reason Start Time Stop Time Status Last Admin Dose Admin Acetaminophen (Tylenol Tab) 650 mg Q6HP PRN PO HEADACHE or MILD DISCOMFORT 03/31/21 22:35 Al Hydrox/Mg Hydrox/Simethicone (Mylanta) 30 ml Q4HP PRN PO HEARTBURN/INDIGESTION 03/31/21 22:35 Bupropion HCl (Wellbutrin Xl) 150 mg QAM PO 04/01/21 09:00 04/03/21 08:18 Bupropion HCl (Wellbutrin Xl) 150 mg QAM PO 04/02/21 09:00 04/01/21 11:34 DC Buspirone HCl (Buspar) 20 mg BID PO 04/01/21 09:00 04/03/21 08:19 Buspirone HCl (Buspar) 20 mg BID PO 04/01/21 21:00 04/01/21 11:34 DC Doxycycline Hyclate (Vibramycin) 100 mg BID PO 04/01/21 09:00 04/11/21 21:00 04/03/21 08:19 Fluoxetine HCl (PROzac) 40 mg DAILY PO 04/01/21 09:00 04/01/21 10:27 DC 04/01/21 08:44 Fluoxetine HCl (PROzac) 60 mg DAILY PO 04/02/21 09:00 04/02/21 14:21 DC 04/02/21 08:54 Fluoxetine HCl (PROzac) 80 mg DAILY PO 04/03/21 09:00 04/03/21 08:19 Gabapentin (Neurontin) 300 mg TID PO 03/31/21 21:00 04/03/21 08:19 Magnesium Hydroxide (Milk Of Magnesia) 30 ml DAILYPRN PRN PO CONSTIPATION 03/31/21 22:35 Nicotine (Nicoderm Cq 14mg) 1 patch DAILYPRN PRN TD NICOTINE WITHDRAWAL 04/01/21 08:45 04/03/21 08:20 Olanzapine (ZyPREXA ZYDIS) 5 mg Q4HP PRN PO AGITATION/ANXIETY 03/31/21 22:35 04/03/21 13:32 Quetiapine Fumarate (SEROquel) 25 mg QHS PO 03/31/21 21:00 04/01/21 10:27 DC 03/31/21 23:24 Trazodone HCl (Desyrel) 50 mg QHSP PRN PO INSOMNIA 03/31/21 22:35 04/02/21 20:54 Allergies Coded Allergies: Sulfa (Sulfonamide Antibiotics) (Verified Allergy, Unknown, 12/12/18) rash sulfamethoxazole (Verified Allergy, Unknown, 12/12/18) rash trimethoprim (Verified Allergy, Unknown, 12/12/18) rash NAYE RICH MD Apr 03, 2021 15:10
[2021-04-03 18:08] VITALS: BP 140/90
[2021-04-03] MEDS: traZODone 50 MG TAB PO PRN (20:45)
[2021-04-04 06:39] VITALS: BP 127/78
[2021-04-04] MEDS: DOXYCYCLINE HYCLATE 100MG TABLET PO SCH ×2 (08:16→20:21)
[2021-04-04] MEDS: GABAPENTIN 300 MG CAP PO SCH ×3 (08:16→20:21)
[2021-04-04] MEDS: OLANZapine ORAL DISINTEGRATING TAB 5MG PO PRN (08:16)
[2021-04-04] MEDS: buPROPion **XL** TABLET 150MG (WELLBUTRIN XL) PO SCH (08:16)
[2021-04-04] MEDS: FLUoxetine 20 MG CAP PO SCH (08:17)
[2021-04-04] MEDS: busPIRone 10 MG TAB PO SCH ×2 (08:17→20:21)
[2021-04-04] MEDS: NICOTINE 14 MG/24 HR TRANSDERMAL TD PRN (08:18)
[2021-04-04] MEDS ORDERED: ISOVUE-370 76% 100ML VIAL As Ordered ONE (11:14)
--- NOTE | 2021-04-04 12:40 | REPVR ---
PROCEDURE INFORMATION: Exam: CT Neck With Contrast Exam date and time: 04/04/2021 11:23 AM Age: 36 years old Clinical indication: Mass, lump, or swelling in neck; Right; Additional info: R parotid mass, suspicious findings on US TECHNIQUE: Imaging protocol: Computed tomography images of the neck with contrast. Radiation optimization: All CT scans at this facility use at least one of these dose optimization techniques: automated exposure control; mA and/or kV adjustment per patient size (includes targeted exams where dose is matched to clinical indication); or iterative reconstruction. Contrast material: ISOVUE 370; Contrast volume: 75 ml; Contrast route: INTRAVENOUS (IV); COMPARISON: Thyroid, ST head+neck US 03/24/2021 8:28 PM FINDINGS: Paranasal sinuses: Mucous retention cysts are present in the maxillary sinuses. Nasopharynx: Unremarkable. Oropharynx: Unremarkable. No significant tonsillar enlargement. Hypopharynx: Unremarkable. Larynx: Unremarkable. Normal epiglottis. Retropharyngeal space: Unremarkable. Submandibular/Parotid glands: There is a nonspecific subcutaneous mass overlying the right parotid gland, measuring approximately 3.3 x 2.4 x 1.1 cm. The underlying parotid gland appears within normal limits. The left parotid and bilateral submandibular glands are unremarkable. Thyroid: There is a calcified 11 mm exophytic nodule arising from the anterior left thyroid. No further follow-up is necessary. Lymph nodes: Small nonspecific bilateral cervical chain lymph nodes are present. There are small bilateral submandibular lymph nodes. Trachea: Visualized trachea is unremarkable. Lungs: Unremarkable as visualized. Bones/joints: Unremarkable. No acute fracture. IMPRESSION: Nonspecific 3.3 cm subcutaneous mass overlying the right parotid gland. Further evaluation or surgical consultation is suggested. COMMENTS: Consistent with the [employer]'s Incidental Findings Committee white paper (J Am Aries Radiol 2015): In patients under 35 years old with an incidental thyroid nodule equal to or greater than [address], MRI or extrathyroidal US, further evaluation with dedicated thyroid US is recommended for patients with normal life expectancy and without comorbidities. For smaller nodules without suspicious features, no further evaluation or follow up is recommended. Electronically signed by: Aashish Paez On 04/04/2021 12:39:55 PM
--- NOTE | 2021-04-04 13:40 | MHIPNPDOC ---
[facility] Progress Note Progress Note DATE OF SERVICE: 04/04/21 HISTORY: Patient self presented to the ED complaining of suicidal ideation in context of reported lack of medications having efficacy. Recently admitted to [facility] March [facility]- for depression and suicidal ideation. Per chart review left the ED only to return by police due to making suicidal statement to . Interval: Patient states mood continues to improve, but he wants to discontinue medications with severe side effects including olanzapine, was concern for weight gain metabolic syndrome. Discontinued medication as requested, agreed to starting Abilify 5 mg p.o. daily for daytime improvement in anxiety and mood, made aware of common and rare side effects prior to starting. Otherwise reports other medication does not give any side effects, denies acute physical compla ints VITAL SIGNS: See below. NEW TEST RESULTS: none CURRENT MEDICATIONS: See below. MENTAL STATUS EXAMINATION: Patient is a 36-year old male, who is sitting in bed with a shaved head, sitting in the hospital clothing, appears stated age, improved eye contact, right parotid mass. Speech: Is increased amount, spontaneous, slightly increased rate Language skills are intact. Thought processes including: Linear, logical. Thought content: Reports decreased frequency of suicidal ideation. Abstract reasoning, and computation: Intact. Description of associations: Normal. Description of abnormal or psychotic thoughts: Denies. Judgment: Fair. Insight: Improved. Orientation: Times. Recent and remote memory: Intact. Attention span and concentration: Fair. Language: Wallisian. Fund of knowledge: Average Mood: " Getting better doc". Affect: anxious, no longer sullen, less constricted, mood congruent. DIAGNOSES: 1. Major depressive disorder, recurrent, moderate, with anxious distress 2. Generalized anxiety disorder, social anxiety 3. Cannabis use disorder, moderate, states may be affecting his current social life 4. 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 Rule out OCD, PTSD, bipolar 1/2, dependent personality disorder ASSESSMENT: Patient reports mood and anxiety continues to improve, asked her medication change to avoid long-term side effects and is agreeable to starting Abilify for mood augmentation as well as reduction in anxiety symptoms during the day. States that only benzos work but due to addiction history understands he cannot take, felt olanzapine was somewhat helpful and wants similar medication with less side effect burden. MANAGEMENT PLAN: Continue fluoxetine 80 mg, Wellbutrin and BuSpar, started Abilify 5 mg daily, metabolic baseline labs unremarkable. Aims score is 0 today. Was called by hospitalist team who have ordered a neck CT due to mass, team plans to do further work-up to assess with possible further imaging and/or other forms of testing. Hospitalist made aware of patient's high anxiety related to illnesses. Work-up appreciated, pending. TIME SPENT: 30 minutes. Vital Signs Vital Signs Date Time Temp Pulse Resp B/P (MAP) Pulse Ox O2 Delivery O2 Flow Rate FiO2 04/04/21 06:39 97.6 65 14 127/78 (94) 94 Room Air Current Medications Current Medications Medications (Trade) Dose Ordered Sig/Renate Route PRN Reason Start Time Stop Time Status Last Admin Dose Admin Acetaminophen (Tylenol Tab) 650 mg Q6HP PRN PO HEADACHE or MILD DISCOMFORT 03/31/21 22:35 Al Hydrox/Mg Hydrox/Simethicone (Mylanta) 30 ml Q4HP PRN PO HEARTBURN/INDIGESTION 03/31/21 22:35 Bupropion HCl (Wellbutrin Xl) 150 mg QAM PO 04/01/21 09:00 04/04/21 08:16 Bupropion HCl (Wellbutrin Xl) 150 mg QAM PO 04/02/21 09:00 04/01/21 11:34 DC Buspirone HCl (Buspar) 20 mg BID PO 04/01/21 09:00 04/04/21 08:17 Buspirone HCl (Buspar) 20 mg BID PO 04/01/21 21:00 04/01/21 11:34 DC Doxycycline Hyclate (Vibramycin) 100 mg BID PO 04/01/21 09:00 04/11/21 21:00 04/04/21 08:16 Fluoxetine HCl (PROzac) 40 mg DAILY PO 04/01/21 09:00 04/01/21 10:27 DC 04/01/21 08:44 Fluoxetine HCl (PROzac) 60 mg DAILY PO 04/02/21 09:00 04/02/21 14:21 DC 04/02/21 08:54 Fluoxetine HCl (PROzac) 80 mg DAILY PO 04/03/21 09:00 04/04/21 08:17 Gabapentin (Neurontin) 300 mg TID PO 03/31/21 21:00 04/04/21 08:16 Magnesium Hydroxide (Milk Of Magnesia) 30 ml DAILYPRN PRN PO CONSTIPATION 03/31/21 22:35 Nicotine (Nicoderm Cq 14mg) 1 patch DAILYPRN PRN TD NICOTINE WITHDRAWAL 04/01/21 08:45 04/04/21 08:18 Olanzapine (ZyPREXA ZYDIS) 5 mg Q4HP PRN PO AGITATION/ANXIETY 03/31/21 22:35 04/04/21 08:16 Quetiapine Fumarate (SEROquel) 25 mg QHS PO 03/31/21 21:00 04/01/21 10:27 DC 03/31/21 23:24 Trazodone HCl (Desyrel) 50 mg QHSP PRN PO INSOMNIA 03/31/21 22:35 04/03/21 20:45 Allergies Coded Allergies: Sulfa (Sulfonamide Antibiotics) (Verified Allergy, Unknown, 12/12/18) rash sulfamethoxazole (Verified Allergy, Unknown, 12/12/18) rash trimethoprim (Verified Allergy, Unknown, 12/12/18) rash NAYE RICH MD Apr 04, 2021 13:40
[2021-04-04 16:45] VITALS: BP 135/66
[2021-04-04] MEDS: traZODone 50 MG TAB PO PRN (20:21)
--- NOTE | 2021-04-04 21:13 | IPNPDOC ---
Date Seen The patient was seen on 04/04/21. Progress Note SUBJECTIVE: Patient seen examined at bedside. Doing well no acute events overnight. Continues to complain of right facial lump below the right earlobe. Reports is painful and firm. OBJECTIVE PHYSICAL EXAMINATION: VITAL SIGNS: please see below General: NAD, comfortable HEENT: PERRLA, EOMI, sclerae clear. 3 cm diameter localized swelling at the angle of the jaw line below the right earlobe. Firm to touch however soft in some areas. Painful to palpation. No surrounding erythema. Neck: supple, normal ROM, no JVD Respiratory: lungs CTAB, no wheeze, no rales, no crackles CVS: RRR, normal S1, S2, no murmurs Abdo: soft, no masses, no hepatosplenomegaly, BS+, no rebound tenderness Extremities: no edema, pulses 2+ MSK: no joint deformities, normal ROM Neuro: no focal neuro deficits, moving all 4 extremities, CN2-12 intact. Strength 5/5 in all 4 extremities. No nystagmus. Psych: calm, cooperative, AAO x 3 LABORATORY DATA, IMAGING STUDIES, MICROBIOLOGY: Please see below. CT neck with IV contrast on 04/04/2021 FINDINGS: Paranasal sinuses: Mucous retention cysts are present in the maxillary sinuses. Nasopharynx: Unremarkable. Oropharynx: Unremarkable. No significant tonsillar enlargement. Hypopharynx: Unremarkable. Larynx: Unremarkable. Normal epiglottis. Retropharyngeal space: Unremarkable. Submandibular/Parotid glands: There is a nonspecific subcutaneous mass overlying the right parotid gland, measuring approximately 3.3 x 2.4 x 1.1 cm. The underlying parotid gland appears within normal limits. The left parotid and bilateral submandibular glands are unremarkable. Thyroid: There is a calcified 11 mm exophytic nodule arising from the anterior left thyroid. No further follow-up is necessary. Lymph nodes: Small nonspecific bilateral cervical chain lymph nodes are present. There are small bilateral submandibular lymph nodes. Trachea: Visualized trachea is unremarkable. Lungs: Unremarkable as visualized. Bones/joints: Unremarkable. No acute fracture. IMPRESSION: Nonspecific 3.3 cm subcutaneous mass overlying the right parotid gland. Further evaluation or surgical consultation is suggested. ASSESSMENT AND PLAN: Patient is a pleasant 36-year-old male to the ER on March 21, 2021 by police for suicidal thoughts. Patient has a history of depression, gallstones with a suspected history of biliary colic. Hospitalist service has been consulted for medical intake. Patient reports difficulties in relationships particularly with his current girlfriend with whom he shares a 5-year-old son. He feels hopeless and continues to have suicidal thoughts with some plan. Patient also reports ongoing work-up by his primary care doctor for right upper quadrant pain. Patient was last seen approximately 1 week ago for right upper quadrant pain during which time a CT abdomen without contrast showed concern for occult bladder calcification indicative of a possible gallbladder cancer. We performed an MRI and MRCP of the abdomen showing no gallbladder calcification no definitive gallstones or choledocholithiasis. At the time the patient was referred back to general surgery however he has not yet followed up. He has seen his primary care doctor. Finally the patient also complains of a cyst below his right earlobe for which he is being followed by dermatology. He was seen in their clinic after last discharged and continued for 2-week course of antibiotics. He is planned for an excision by dermatology clinic after d ischarge. Patient denies any chest pain shortness of breath reputations nausea vomiting or diarrhea at this time. PLAN: Suicidal ideation with plan: Per psychiatry Right upper quadrant pain: Being followed by PCP. I referred the patient general surgery during the last admission. Encouraged to follow-up. Initial ultrasound showed gallstones and sludge. CT abdomen showed possible calcification of the gallbladder wall concerning for cancer. We obtained an MRI and MRCP showing no calcification to indicate malignancy. Patient states that his abdominal pain has improved today. He has been avoiding fatty foods. Again he is encouraged to follow-up with general surgery. I reviewed his labs he does not have any transaminitis or hyperbilirubinemia. Elevated TSH: We will check free T4. Cyst (below R ear): follows with Dermatology. C/w doxycycline. US of lump from 03/24/21, showing solid features. 2.6 cm in diameter. cannot exclude parotid neoplasm. Ordered soft tissue CT neck with IV contrast. Nonspecific 3.3 cm subcutaneous mass overlying the right parotid gland. I discussed with Dr. Maximino Wilson of ENT. Given the fact the findings are of subcutaneous mass suggested less risk of parotid tumor. However he recommends close follow-up and possible referral to ENT if dermatology wishes. Spoke to dermatology clinic patient has been rescheduled for an appointment on 04/08/2021 at 7:15 AM. I faxed over the report to dermatology clinic for Dr. Davis to review. Thank you for involving me in the care of this patient. I will continue to follow. I encouraged the patient to follow-up with general surgery on discharge. Please reconsult us as needed. VS, I&O, 24H, Fishbone Vital Signs/I&O Vital Signs Date Time Temp Pulse Resp B/P (MAP) Pulse Ox O2 Delivery O2 Flow Rate FiO2 04/04/21 16:45 97.5 82 16 135/66 (89) 97 Room Air CHAD HUMPHRIES MD Apr 04, 2021 21:13
[2021-04-05 06:14] VITALS: BP 134/71
[2021-04-05] MEDS: busPIRone 10 MG TAB PO SCH ×2 (08:25→20:16)
[2021-04-05] MEDS: GABAPENTIN 300 MG CAP PO SCH ×3 (08:25→20:15)
[2021-04-05] MEDS: buPROPion **XL** TABLET 150MG (WELLBUTRIN XL) PO SCH (08:25)
[2021-04-05] MEDS: DOXYCYCLINE HYCLATE 100MG TABLET PO SCH ×2 (08:26→20:16)
[2021-04-05] MEDS: FLUoxetine 20 MG CAP PO SCH (08:26)
[2021-04-05] MEDS: NICOTINE 14 MG/24 HR TRANSDERMAL TD PRN (08:50)
[2021-04-05] MEDS: OLANZapine 2.5MG TABLET PO PRN ×2 (10:28→17:51)
[2021-04-05 16:05] VITALS: BP 136/80
[2021-04-05] MEDS: traZODone 50 MG TAB PO PRN (20:16)
[2021-04-05] MEDS ORDERED: traZODone 50 MG TAB PO ONE (20:55)
[2021-04-05] MEDS: MAALOX 30 ML SUSP *UDC PO PRN (22:51)
[2021-04-06 06:46] VITALS: BP 145/67
[2021-04-06] MEDS: DOXYCYCLINE HYCLATE 100MG TABLET PO SCH ×2 (08:20→20:02)
[2021-04-06] MEDS: buPROPion **XL** TABLET 150MG (WELLBUTRIN XL) PO SCH (08:20)
[2021-04-06] MEDS: FLUoxetine 20 MG CAP PO SCH (08:20)
[2021-04-06] MEDS: GABAPENTIN 300 MG CAP PO SCH ×3 (08:20→20:02)
[2021-04-06] MEDS: busPIRone 10 MG TAB PO SCH ×2 (08:20→20:02)
[2021-04-06] MEDS: NICOTINE 14 MG/24 HR TRANSDERMAL TD PRN (08:20)
[2021-04-06] MEDS: OLANZapine 2.5MG TABLET PO PRN ×2 (12:46→20:02)
[2021-04-06 16:14] VITALS: BP 128/68
[2021-04-06] MEDS ORDERED: traZODone 100 MG TAB PO PRN (21:00)
[2021-04-07] MEDS: MAALOX 30 ML SUSP *UDC PO PRN (01:31)
[2021-04-07 07:04] VITALS: BP 169/83
[2021-04-07] MEDS: GABAPENTIN 300 MG CAP PO SCH (09:00)
[2021-04-07] MEDS: buPROPion **XL** TABLET 150MG (WELLBUTRIN XL) PO SCH (09:17)
[2021-04-07] MEDS: busPIRone 10 MG TAB PO SCH (09:18)
[2021-04-07] MEDS: FLUoxetine 20 MG CAP PO SCH (09:18)
[2021-04-07] MEDS: DOXYCYCLINE HYCLATE 100MG TABLET PO SCH (09:18)
[2021-04-07] MEDS ORDERED: NICO14PA TD (09:32)
[2021-04-07] MEDS ORDERED: GABA-282 PO (09:32)
[2021-04-07] MEDS ORDERED: BUSP10TA PO (09:32)
[2021-04-07] MEDS ORDERED: TRAZ-257 PO (09:32)
[2021-04-07] MEDS ORDERED: FLUO20CA22 PO (09:32)
[2021-04-07] MEDS ORDERED: ABIL1TAB11 PO ×2 (09:32)
[2021-04-07] MEDS ORDERED: DOXY100T PO (09:32)
[2021-04-07] MEDS ORDERED: BUPR150T12 PO (09:32)
--- NOTE | 2021-04-07 09:57 | MHDSPDOC ---
[facility] Discharge Summary Discharge Summary DATE OF ADMISSION: Mar 31, 2021 at 22:50 DATE OF DISCHARGE: DISCHARGE DIAGNOSES: 1. Major depressive disorder, recurrent, moderate, with anxious distress 2. Generalized anxiety disorder, social anxiety 3. Cannabis use disorder, moderate, states may be affecting his current social life 4. 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 Rule out OCD, PTSD, bipolar 1/2, dependent personality disorder REASON FOR ADMISSION: Dr. 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 is brought by the police for suicidal thoughts. Initially patient came with the mother to the ER refused to wear mask and went away he was confronted by his mother to me told that he wanted to hurt himself she called the police and police brought him to the hospital. Patient has long history of depression he was admitted 2 years ago to [facility]. He continued follow-up he with outpatient doctors for a short time and stopped taking his medications. Reports he has been depressed for a long time however his depression has increased after the of his father 2 years ago, currently he has conflicts with his girlfriend, he feels his girlfriend is lying to him particularly her relationships in the past which is bothering him, but he is not sure whether currently she is cheating on him. According to the patient it is an intrusive thought that always come and never resolved. Currently his depression has increased his energy level is low, feels hopeless and has some suicidal thoughts without plans. Denies any manic episodes, however has some racing thoughts Patient currently sees a therapist at the [facility]." CONSULTANTS INVOLVED: See medical H&P by hospitalist TREATMENT AND PROGRESS ON THE UNIT : Patient was admitted to the [facility] on a legal status, he was afforded the following treatment modalities: 1. Individual therapy 2. Group therapy 3. Medication management 4. Milia therapy 5. Safe environment HOSPITAL COURSE: Patient was admitted to the unit on legal status, was medically cleared in the ED, was started on Prozac for mood which was titrated up to 80 mg, started on Wellbutrin 150 mg XL for mood augmentation, gabapentin for anxiety spells, BuSpar for anxiety, and Abilify 5 mg p.o. which titrated up to 5 mg twice daily. On these medications he had a reduction in his obsessive- compulsive thinking patterns, anxiety and suicidal thoughts. He reported that he tolerated the medications without side effects apart from gabapentin which led to some stomach discomfort, was agreeable to switching to as needed administration. Patient had a left parotid mass which was evaluated with CT and followed by hospitalist team. Patient has a history of recent right upper quadrant discomfort and having CT which was concerning for calcification of gallbladder 1 week prior to admission, repeat MRI and MRCP were unremarkable however. Had been referred to general surgery but is following up with PCP. Patient also had a cyst below the right earlobe which was evaluated with ultrasound and concerning for possible tumor, CT with IV contrast was ordered and was continued on doxycycline per medicine team, referral was made to dermatology and has appointment April 08 to evaluate, ENT feels patient can then be referred to ENT at that time if needed for further work-up per chart review. Patient reports a significant reduction in anxiety despite current medical work-up, reports medications have reduced OCD obsessions, and he feels that he is ready to return home from his partner and child. Does not feel he is a safety concern, denies suicidal ideation, intent or plan. Reports being on the unit has been more stressful which is caused him to use as a olanzapine at times but does not feel he needs to continue with this medication as he is feeling calmer with the Abilify being increased. Was clarified that patient will be picked up by his girlfriend who is agreeable to have him back and feels he is safe. She reported to social work that she arrange for couples therapy so that he can work through their relationship issues. DISCHARGE ASSESSMENT: On today's interview, patient is alert and oriented and dressed appropriately. Hygiene and grooming is well-kept, good eye contact and smiles on approach and is pleasant and engaged in interview. Reports s ignificant improvement in depression and anxiety, reports improved sleep without insomnia, denies suicidal or homicidal ideation, intent or plan. Denies and is not observed to have any franki or psychotic symptoms of delusions, bizarre thinking, obsessions, paranoia, ruminations, illogical thoughts, flight of ideas or having poor insight or judgment. Patient has normal mentation and declines further hospitalization on a voluntary status and meets criteria for discharge today. Patient encouraged to return to the hospital symptoms worsen or change encouraged to call the unit if he needs to speak to a provider for questions regarding medications or care. MENTAL STATUS EXAMINATION ON DISCHARGE: Patient is a 36-year old male, who is sitting in bed with a shaved head, sitting in the hospital clothing, appears stated age, improved eye contact, right parotid mass. Speech: Is increased amount, spontaneous, slightly increased rate Language skills are intact. Thought processes including: Linear, logical. Thought content: Reports decreased frequency of suicidal ideation. Abstract reasoning, and computation: Intact. Description of associations: Normal. Description of abnormal or psychotic thoughts: Denies. Judgment: Good Insight: Good Orientation: Times. Recent and remote memory: Intact. Attention span and concentration: Fair. Language: Irish. Fund of knowledge: Average Mood: " A lot better". Affect: Mild anxiety, less constricted, does smile at points. MEDICATIONS ON DISCHARGE: See medication reconciliation PLAN/FOLLOWUP ARRANGEMENTS: Follow Up Care Education Label * Mental Health Appt 1 * Mental Health [facility] * Established With This Provider No NEW PATIENT * Therapist MARCIO * Date Apr 14, 2021 * Time 09:15 * Address of Clinic or Practice [address] [place] [address] * * Additional information PATIENT NEEDS ARRIVE BEFORE 93O, ANY LATER AND APPOINTMENT WILL HAVE TO BE RESCHDUELED. Follow Up Care Education Label * Medical * Medical Follow Up [facility] * Established With This Provider Yes * Therapist ALEXANDRE NOE * Date Apr 15, 2021 * Time 08:30 * Address of Clinic or Practice [address] [place] [address] * Has a dermatology appointment tomorrow scheduled Dr Reyes [facility] at 7:15 am CSSRS on discharge: Wish to be : No nonspecific active suicidal thoughts: No lifetime attempts: 0 interrupted attempts: 0 attempts: 0 Preparatory acts or behavior: None Taken to consideration safety state, status, modifiable non-modifiable risk factors patient is at low risk on discharge for suicide according to the [place] suicide evaluation. The amount of time spent in the coordination of care for this patient was approximately 40 minutes. ETOH/Disorder Med Rx ETOH/DRUG DISORDER RX: Offrd @ d/c & pt refused Vital Signs/I&Os Vital Signs Date Time Temp Pulse Resp B/P (MAP) Pulse Ox O2 Delivery O2 Flow Rate FiO2 04/07/21 07:04 98.0 74 18 169/83 (111) 93 Room Air Medications Scheduled Aripiprazole (Abilify) 5 Mg Tablet, 5 MG PO QHS for depression, #7 Aripiprazole (Abilify) 5 Mg Tablet, 5 MG PO DAILY for depression, #7 Bupropion Hcl (Bupropion Xl) 150 Mg Tab.er.24h, 150 MG PO QAM for depression, #7 Buspirone HCl (Buspirone HCl) 10 Mg Tablet, 20 MG PO BID for anxiety, #14 Doxycycline Hyclate (Doxycycline Hyclate) 100 Mg Tablet, 100 MG PO BID for infection, #7 Fluoxetine Hcl (Fluoxetine HCl) 20 Mg Capsule, 80 MG PO DAILY for depression, #7 Scheduled PRN Gabapentin (Gabapentin) 300 Mg Capsule, 300 MG PO TIDP PRN for ANXIETY/AGITATION for 7 Days, #21 Nicotine (Nicotine Patch) 14 Mg Patch.td24, 1 PATCH TD DAILYPRN PRN for NICOTINE WITHDRAWAL, #7 Trazodone HCl (Trazodone HCl) 100 Mg Tablet, 100 MG PO QHSP PRN for INSOMNIA, #7 Allergies Coded Allergies: Sulfa (Sulfonamide Antibiotics) (Verified Allergy, Unknown, 12/12/18) rash sulfamethoxazole (Verified Allergy, Unknown, 12/12/18) rash trimethoprim (Verified Allergy, Unknown, 12/12/18) rash NAYE RICH MD Apr 07, 2021 09:57
== END 2021-04-07 12:08 | disposition home or self-care (01) | DRG 751 ==
LOC: M ED 18:54 → M PSY 22:50
PROVIDERS: ADMIT Psychiatry & Neurology Child & Adolescent Psychiatry; ATTEND Student in an Organized Health Care Education/Training Program
DX: F33.2 Major depressive disorder, recurrent severe without psychotic features (principal); R45.851 Suicidal ideations; F17.200 Nicotine dependence, unspecified, uncomplicated; K80.20 Calculus of gallbladder without cholecystitis without obstruction; R22.1 Localized swelling, mass and lump, neck; F41.1 Generalized anxiety disorder; F40.10 Social phobia, unspecified; F12.20 Cannabis dependence, uncomplicated; F43.10 Post-traumatic stress disorder, unspecified; F42.9 Obsessive-compulsive disorder, unspecified; F60.7 Dependent personality disorder; Z63.4 Disappearance and death of family member; Z63.0 Problems in relationship with spouse or partner; Z79.899 Other long term (current) drug therapy; Z20.822 Contact with and (suspected) exposure to COVID-19; Z88.2 Allergy status to sulfonamides; Z88.8 Allergy status to other drugs, medicaments and biological substances

== ENCOUNTER → 2021-04-08 | Outpatient (REF) | payer BC ==
[~2021-04-08] MED LIST changes: +ABIL1TAB11 PO; +BUPR150T12 PO; +NICO14PA TD; +TRAZ-257 PO
== END ==
LOC: M LAB REF 16:20
PROVIDERS: ATTEND Otolaryngology
DX: L72.3 Sebaceous cyst (principal)

== ENCOUNTER → 2021-05-02 | Outpatient (REF) | payer BC | LOC: M LAB REF 15:53 | PROVIDERS: ATTEND Dermatology | DX: L72.0 Epidermal cyst (principal) ==

== ENCOUNTER 2021-05-19 08:03 | Inpatient (IN) | payer BC ==
[~2021-05-19] VITALS: Ht 177.8 cm; Wt 87.1 kg
--- OUTSIDE RECORDS SUMMARY | 2021-05-19 08:10 | CCD ---
Continuity of Care Document (CCD) Created on: 04/15/2021 Chico Ellison External Reference #: [id number] : 1985 Sex: Male Author Author Chico ESTRELLA MD Organization Unknown Address [address] [address] Phone [phone] Care Team Providers Care Room Inspector Name Role Phone Ruperto Davismaribell Orr AUTM [phone] Nicole Ogden AUTM [phone] Problems Description No Information Available Social History Type Date Description Comments Sex Unknown ETOH Use 6 A Week Tobacco Use Start: 07/19/98 End: 07/19/16 Patient is a forme r smoker 1 ppd x12 yrs Recreational Drug Use Denies Drug Use Tobacco Use Start: Unknown Non Smoker Smoking Status Reviewed: 11/16/17 Patient is a former smoker 1 ppd x12 yrs Allergies, Adverse Reactions, Alerts Active Allergies Criticality Reaction | Severity Comments Date Bactrim Unable to assess criticality 11/24/2017 Medications Active Medications SIG Qnty Indications Ordering Provide r Date Buspirone HCL 10mg Tablets 1 tab by mouth every day as needed Unknown Aripiprazole 5mg Tablets Take 1 Tablet By Mouth Once Daily For Depression Unknown Prozac 40mg Capsules qd Unknown Doxycycline Hyclate 100mg Tablets Unknown Fluoxetine HCL 20mg Capsules Take 4 Capsules By Mouth Once Daily For Depression Unkn own Immunizations Description No Information Available Vital Signs Date Vital Result Comment 04/15/2021 1:59pm Height 70 inches 5'10" Weight 188.00 lb BMI (Body Mass Index) 27.0 kg/m2 Weir Body Weight 166 lb Weight 85.277 kg BSA (Body Surface Area) 2.03 m2 04/08/2021 1:50pm Height 70 inches 5'10" Weight 184.00 lb BMI (Body Mass Index) 26.4 kg/m2 Weir Body Weight 166 lb Weight 83.462 kg BSA (Body Surface Area) 2.01 m2 Results Test Acquired Date Facility Test Result H/L Range Note Abscess Culture And Gram Stain 04/08/2021 [facility] [address] [place] [address] [phone] Gram Stain (SEE NOTE) Normal 1 Abscess Culture FULL REPORT IN L <SEE NOTE> Normal 2 1 FEW WBCS NO ORGANISMS SEEN 2 FULL REPORT IN LAB NOTES (eC W and Medent). ORGANISM 1: STAPHYLOCOCCUS EPIDERMIDIS QUANTITY OF GROWTH FEW ORGANISM 1: STAPHYLOCOCCUS EPIDERMIDIS STAPHYLOCOCCUS EPIDERMIDIS: REACTION ICR (INDUCIBLE CC RESISTANCE) IV ICR TEST RESULT TETRACYCLINE PO 250 mg qid <=1 S PENICILLIN G IV 1 mu q6h 0.25 R PENICILLIN G PO 250mg q6h fasting 0.25 R TRIMETHOPRIM/SULFAMETHOXAZOLE IV 160mg TMP & 800mg SMXq6h <=10 S TRIMETHOPRIM/SULFAMETHOXAZOLE PO Bactrim DS Bid <=10 S ERYTHROMYCIN IV 500mg q6h <=0.25 S ERYTHROMYCIN PO 500mg q6h <=0.25 S GENTAMICIN IV 80mg q8h <=0.5 S CLINDAMYCIN IV 600mg q6h <=0.12 S CLINDAMYCIN PO 150mg q6h <=0.12 S OXACILLIN IV 500mg q6h <=0.25 S VANCOMYCIN IV 500mg q8h <=0.5 S LINEZOLID (ZYVOX) IV 600MG Q12HR 2 S LINEZOLID (ZYVOX) PO 600MG Q12HR 2 S An isolate with a (+) POSITIVE ICR test is considered CLINDAMYCIN RESISTANT; however, clindamycin may still be effective in some patients. An isolate with a (-) NEGATIVE ICR test is considered CLIDAMYCIN SENSITIVE. Oxacillin result predicts susceptibility to all penicillinase-stable penicillins (Nafcillin, Dicloxacilin), Cephalosporins, Carbapenems, Amoxicillin/Clavulanate & Ampicillin/Sulbactam per CSLI standards. Procedures Description No Information Available Medical Devices Description No Information Available Encounters Description No Information Available Assessments Date Code Description Provider 04/15/2021 L72.3 Sebaceous cyst Jake Estrella MD 04/08/2021 L72.3 Sebaceous cyst Jake Estrella MD Plan of Treatment Future Appointment(s):* 05/27/2021 1:00 pm - Jake Estrella MD at [facility] 04/15/2021 - Jake Estrella MD* L72.3 Sebaceous cyst Functional Status Description No Information Available Mental Status Description No Information Available Referrals Refer to Dr Reason for Referral Status Appt Date Jake Estrella M.D. Suspicious for malignancy on subcutaneous mass in the riight neck overlying the parotid gland Closed 04/10/[address] [place] [address] [phone]
--- OUTSIDE RECORDS SUMMARY | 2021-05-19 08:10 | CCD ---
Author Author Located Within [facility] Organization Located Within [facility] Address Unknown Phone Unavailable Care Team Providers Care Insurance Solicitor Name Role Phone Gregory Davis Unavailable PROBLEMS Type Condition ICD9-CM Code [id number] Code Onset Dates Condition S tatus W/U Status Risk SNOMED Code Notes Problem Cyst of skin L72.9 Active confirmed 5915060 01 Problem Calculus of gallbladder K80.20 Active confirmed 39273196 Problem Prediabetes R73.03 Active confirmed 77911057 2 Problem Depression with anxiety F41.8 Active confirmed 729980746 Problem Vitamin D deficiency E55.9 Active confirmed 27007671 Problem Hyperlipidemia E78.5 Active confirmed 54698 004 ALLERGIES Allergen (clinical drug ingredient) Drug/Non Drug Allergy do cumented on EMR Reaction Allergy Type Onset Date Status sulfamethoxazole / trimethoprim Bactrim([facility] Code:[address]-34) Rash Drug Allergy Active ENCOUNTERS from 1987 to 2021-04-09 Encounter Location Date Provider Diagnosis [facility] Dermatology [address] [place] [address] [place] [address] Mar, Gregory Davis 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 IMMUNIZATIONS Vaccine Route Administration Date Status Influenza 6mo & up Fluzone IM Intramuscular May 12, 2013 Admi nistered SOCIAL HISTORY Tobacco Use: Social History Observation Description Date Details (start date - stop date) Current Smoker Sex Assigned At : Social History Observation Description Sex Assigned At Unknown Education: Question Answer Notes Level of Education: High School GED Audit Question Answer Notes Total Score: 1 Interpretation: Alcohol Education Language: Question Answer Notes Languages spoken: Tongan Hoahaoism: Question Answer Notes Hoahaoism 21 Mormonism Sexual Hx: Question Answer Notes Had sex in the last 12 months (vaginal, oral, or anal)? Yes Have you ever had an STD? No with Women only Use protection? No Drug and Alcohol Question Answer Notes Total Score: 4 Interpretation: Moderate level Alcohol Screening: Question Answer Notes Did you have a drink containing alcohol in the past year? Ye s Points 2 Interpretation Negative How often did you have six or more drinks on one occas ion in the past year? Never (0 points) How many drinks did you have on a typica l day when you were drinking in the past year? 1 or 2 (0 points) How often did you have a drink containing alcohol in t he past year? Two to four times a month (2 points) Tobacco Use: Question Answer Notes Are you a: current smoker Once a month How many cigarettes a day do you smoke? 5 or less REASON FOR REFERRAL from 1987 to 2021-04-09 Reason 36[address] M [address] CT findings susp icious for malignancy on subcutaneous mass in the right neck overlying the parotid gland. Will place urgent referral to [facility] ENT department for evaluation and consideration of biopsy. 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) Referral Organization [facility] Dermatology Referring Provider First Name Gregory Referring Provider Last Name Susan Referring Provider Specialty Dermatology Referred Provider Steve CHEN)Maximino Referred Provider Specialty Otolaryngology Referral Priority Urgent VITAL SIGNS Weight 185 lbs Mar, Weight-kg 83.92 kg Mar, Height 70 in Mar, BMI 26.54 kg/m2 Mar, Blood pressure systolic 142 mm Hg Mar, Blood pressure diastolic 88 mm Hg Mar, MEDICATIONS Medication SIG (Take, Route, Frequency, Duration) Notes Start Da te End Date Status FLUoxetine HCl 20 MG 1 capsule Orally Once a day for 30 day(s) Feb, Active Doxycycline Hyclate 100 MG 1 capsule Orally Twice a day with afshan d for 14 days Mar, Active SEROquel 25 MG 1 tablet at bedtime Orally Once a day for 30 day (s) Mar, Active PROCEDURES No Information RESULTS No Results REASON FOR VISIT subcutaneous mass, right neck MEDICAL (GENERAL) HISTORY Type Description Date Medical History Heel Calluses Medical History hx abdominal hernia of unkno wn type, congenital defect, s/p repair in 1987 Medical History Depression/anxiety Medical History Hyperlipidemia Medical History IFG Medical History Marijuana Surgical History abdominal hernia repair, con genital defect, unclear nature of herniation 08/1987 Surgical History cyst removal on left jawline 2017 Hospitalization History [facility] for left heal abscess 10/26-2011 Hospitalization History flu 08/1988 Hospitalization History abdominl hernia repair 08/1987 Hospitalization History Mood disorder [facility]/depression 03/20-03/24/2021 Goals Section No Information Health Concerns No Information MEDICAL EQUIPMENT No Information MENTAL STATUS No Information FUNCTIONAL STATUS No Information ASSESSMENTS Encounter Date Diagnosis Assessment Notes Treatment Notes Treatm ent Clinical Notes Mar, 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 The imaging report from the referring provider was reviewed and interpreted to ensure this case is appropriate for surgery by dermatologic surgeon, Gregory Davis MD. This interpretation was discussed with the patient. Referral photograph of the biopsy site was reviewed and verified with patient. Extensive discussion was performed with the patient regarding treatment options to include no treatment, chemotherapy, radiation therapy, and surgery, to include, whether Mohs Micrographic Surgery would be an appropriate treatment modality in this case. Discussed with patient surgical reconstruction options to include secondary intent, primary closure, skin flap, and skin graft. Risk Factors of Concern: Anticoagulant therapy: [ ] Artificial heart valve: [ ] Artificial joint within 2 years: [ ] 36[address] M [address] findings suspicious for malignancy on subcutaneous mass in the right neck overlying the parotid gland. Will place urgent referral to [facility] ENT department for evaluation and consideration of biopsy. Mar, Other Referral to ENT PLAN OF TREATMENT Treatment Notes Assessment Notes Clinical Notes Neoplasm of uncertain behavior Very plea hakeem patient referred for surgical consultation, as above. The imaging report from the referring provider was reviewed and interpreted to ensure this case is appropriate for surgery by derma tologic surgeon, Gregory Davis MD. This interpretation was discussed with the patient. Referral photograph of the biopsy site was reviewed and verified with patient. Extensive discussion was performed with the patient regarding treatment options to include no treatment, chemotherapy, radiation therapy, and surgery, to include, whether Mohs Micrographic Surgery would be an appropriate treatment modality in this case. Discussed with patient surgical reconstruction options to include secondary intent, primary closure, skin flap, and skin graft.Risk Factors of Concern:Anticoagulant therapy: [ ]Artificial heart valve: [ ]Artificial joint within 2 years: [ ]36[address] M with CT findings suspicious for malignancy on subcutaneous mass in the right neck overlying the parotid gland. Will place urgent referral to [facility] ENT department for evaluation and consideration of biopsy. Referrals Referral Date Details 36[address] M [address] CT findings susp icious for malignancy on subcutaneous mass in the right neck overlying the parotid gland. Will place urgent referral to [facility] ENT department for evaluation and consideration of biopsy., Maximino Wilson ([facility]) Next Appt Details prn Reason: Provider Name:Amy Helton, 04-15 08:30:00 AM, [address] [place] [address], , [place], [address], Provider Name:Gregory Davis, 05-02 07:15:00 AM, [address] [place] [address], , [place], [address] Provider Name:Amy Helton, 08-26 09:30:00 AM, [address] [place] [address] , [place], [address], Insurance Providers Payer Name Payer Address Payer Phone Insured Name Patient Relati onship to Insured Coverage Start Date Coverage End Date [facility] [id number] JOSE IRWIN [id number] MUKUL ALVAREZ self
--- OUTSIDE RECORDS SUMMARY | 2021-05-19 08:10 | CCD ---
Author Author [facility] Organization [facility] Address Unknown Phone Unavailable Care Team Providers Care Vulcanized Fiber Unit Operator Name Role Phone Gregory Davis Unavailable PROBLEMS Type Condition ICD9-CM Code [id number] Code Onset Dates Condition S tatus W/U Status Risk SNOMED Code Notes Problem Cyst of skin L72.9 Active confirmed 4376351 01 Problem Calculus of gallbladder K80.20 Active confirmed 90808337 Problem Prediabetes R73.03 Active confirmed 79685714 2 Problem Depression with anxiety F41.8 Active confirmed 726056038 Problem Vitamin D deficiency E55.9 Active confirmed 56269339 Problem Hyperlipidemia E78.5 Active confirmed 29160 004 ALLERGIES Allergen (clinical drug ingredient) Drug/Non Drug Allergy do cumented on EMR Reaction Allergy Type Onset Date Status sulfamethoxazole / trimethoprim Bactrim([facility] Code:[address]-04) Rash Drug Allergy Active ENCOUNTERS from 1987 to 2021-05-06 Encounter Location Date Provider Diagnosis [facility] Dermatology [address] [place] [address] [place] [address] Apr, Gregory Davis Neoplasm of uncertain behavi or [...] Education Language: Question Answer Notes Languages spoken: Bahamian Advent: Question Answer Notes Advent 21 Hoahaoism Sexual Hx: Question Answer Notes Had sex [...] smoke? 5 or less REASON FOR REFERRAL No Information VITAL SIGNS Weight 189 lbs Apr, Weight-kg 85.73 kg Apr, Height 70 in Apr, BMI 27.12 kg/m2 Apr, Blood pressure systolic 138 mm Hg Apr, Blood pressure diastolic 82 mm Hg Apr, MEDICATIONS Medication SIG (Take, Route, Frequency, Duration) Notes Start Da te End Date Status Doxycycline Hyclate 100 MG 1 capsule Orally Twice a day with afshan d for 14 days Mar, Active busPIRone HCl 10 MG 2 tablet Orally Twice a day Active Abilify 5 MG 1 tablet Orally bid Act leah Wellbutrin SR 150 MG 1 tablet in the morning Orally Once a day Active FLUoxetine HCl 40 MG 2 capsule Orally Once a day for 30 Days Feb, Active PROCEDURES No Information RESULTS No Results REASON FOR VISIT neoplasm, right chest MEDICAL (GENERAL) HISTORY Type Description Date Medical History Heel Calluses Medical History hx abdominal hernia of unkno wn type, congenital defect, s/p repair in 1987 Medical History Depression/anxiety Medical History Hyperlipidemia Medical History IFG Medical History Marijuana Medical History [facility] admission Medical History 03/2021 CT neck: R parotid garrison bcutaneous mass 3.3 cm - Dr. Estrella I & D Surgical History abdominal hernia repair, con genital defect, unclear nature of herniation 08/1987 Surgical History cyst removal on left jawline [address] 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 [place] protocol was followed in compliance with [facility] standards. The site was marked and anesthetized with lidocaine 1% with epinephrine. The area was then prepped and draped in a clean fashion. The lesion was excised with margins as below. The lesion was or was not tagged as indicated below. Hemostasis was obtained using hyfrecation. Estimated blood loss was 1mL. Once tissue was removed, then defect was then repaired as below. Tagging: [ x ] No [ ] 1200 Initial size: [ 3.1 x 3.1 ]cm Margins: [ 0 ]cm Size of lesion with margins : [ 3.1 x 3.1 ]cm Intermediate repair. The wound was then undermined with at least 1 cm margins. Wound was then closed with deep buried absorbable sutures. Superficial approximation of tissue was accomplished with non-absorbable sutures. The wound was cleaned, Vaseline placed, and a pressure dressing applied to immobilize the wound and aid in hemostasis. Patient was instructed on wound care and directed to f/u for suture removal as below. The patient was instructed to return to clinic sooner for signs of symptoms of infection to include erythema, draining fluid or pain to palpation. There was no noted significant difference from baseline pain score after procedure. Post-operative pain management plan discussed and patient will take acetaminophen 650mg every four hours as needed. The patient left the operating suite alert and fully oriented. Follow-up discussed. Procedure Management: Deep Sutures: 4-0 monocryl Superficial Sutures: 4-0 prolene Final length of incision [2.7 ]cm Suture Removal: [ 14] days PLAN OF TREATMENT Treatment Notes Assessment Notes Clinical Notes Neoplasm of uncertain behavior Procedure : Excision. [place] protocol was followed in compliance with [facility] standards. The site was marked and anesthetized with lidocaine 1% with epinephrine. The area was then prepped and draped in a clean fashion. The lesion was excised with margins as below. The lesion was or was not tagged as indicated below. Hemostasis was obtained using hyfrecation. Estimated blood loss was 1mL. Once tissue was removed, then defect was then repaired as below.Tagging: [ x ] No [ ] 1200Initial size: [ 3.1 x 3.1 ]cmMargins: [ 0 ]cmSize of lesion with margins : [ 3.1 x 3.1 ]cmIntermediate repair. The wound was then undermined with at least 1 cm margins. Wound was then closed with deep buried absorbable sutures. Superficial approximation of tissue was accomplished with non-absorbable sutures . The wound was cleaned, Vaseline placed, and a pressure dressing applied to immobilize the wound and aid in hemostasis. Patient was instructed on wound care and directed to f/u for suture removal as below. The patient was instructed to return to clinic sooner for signs of symptoms of infection to include erythema, draining fluid or pain to palpation. There was no noted significant difference from baseline pain score after procedure.Post-operative pain management plan discussed and patient will take acetaminophen 650mg every four hours as needed. The patient left the operating suite alert and fully oriented. Follow-up discussed.Procedure Management:Deep Sutures: 4-0 monocrylSuperficial Sutures: 4- 0 proleneFinal length of incision [2.7 ]cmSuture Removal: [ 14] days Next Appt Details 2 Weeks Reason: Provider Name:Gregory Davis, 05-13 02:00:00 PM, [address] [facility] [phone], [place], [address], Provider Name:Amy Helton, 08-26 09:30:00 AM, [address] [place] [address] [place], [address], Insurance Providers Payer Name Payer Address Payer Phone Insured Name Patient Relati onship to Insured Coverage Start Date Coverage End Date [facility] [id number] NORWOODMARILEE IRWIN [address] ALVAREZ self
--- OUTSIDE RECORDS SUMMARY | 2021-05-19 08:10 | CCD ---
Author Author [facility] Organization [facility] Address Unknown Phone Unavailable Care Team Providers Care Anode Crew Supervisor Name Role Phone Amy Helton Unavailable PROBLEMS Type Condition ICD9-CM Code HPC58-LW Code Onset Dates Condition S tatus W/U Status Risk SNOMED Code Notes Problem Hyperlipidemia E78.5 Active confirmed 06023 004 Problem Cyst of skin L72.9 Active confirmed 4999523 01 Problem Prediabetes R73.03 Active confirmed 21556834 2 Problem Depression with anxiety F41.8 Active confirmed 066314730 Problem Vitamin D deficiency E55.9 Active confirmed 86648653 ALLERGIES Allergen (clinical drug ingredient) Drug/Non Drug Allergy do cumented on EMR Reaction Allergy Type Onset Date Status sulfamethoxazole / trimethoprim Bactrim([facility] Code:[address]-80) Rash Drug Allergy Active ENCOUNTERS from 1987 to 2021-03-08 Encounter Location Date Provider Diagnosis [address] [phone] [place] [address] Feb, Amy Nicoleqingosieljorge Depression with anxiety F41. 8 ; Abdominal pain R10.9 ; Vitamin D deficiency E55.9 ; Prediabetes R73.03 and Hyperlipidemia E78.5 IMMUNIZATIONS Vaccine Route Administration Date Status Influenza [...] Education Language: Question Answer Notes Languages spoken: Tuvaluan Adventist: Question Answer Notes Adventist 21 Congregation Sexual Hx: Question Answer Notes Had sex [...] FOR REFERRAL No Information VITAL SIGNS Weight 183 lbs Feb, Weight-kg 83.01 kg Feb, Height 70 in Feb, BMI 26.25 kg/m2 Feb, Heart Rate 97 /min Feb, Respiratory Rate 18 /min Feb, Temperature 98.3 degrees Fahrenheit Feb, Oximetry 98% Feb, Blood pressure systolic 110 mm Hg Feb, Blood pressure diastolic 64 mm Hg Feb, MEDICATIONS No Known Medications PROCEDURES No Information RESULTS No Results REASON FOR VISIT 6M MEDICAL (GENERAL) HISTORY Type Description Date Medical History Heel Calluses Medical History hx abdominal hernia of unkno wn type, congenital defect, s/p repair in 1987 Medical History Depression/anxiety Medical History Hyperlipidemia Medical History IFG Medical History Marijuana Surgical History abdominal hernia repair, con genital defect, unclear nature of herniation 08/1987 Surgical History cyst removal on left jawline 2017 Hospitalization History [facility] for left heal abscess 10/26-2011 Hospitalization History flu 08/1988 Hospitalization History abdominl hernia repair 08/1987 Goals Section No Information Health Concerns No Information MEDICAL EQUIPMENT No Information MENTAL STATUS No Information FUNCTIONAL STATUS No Information ASSESSMENTS Encounter Date Diagnosis Assessment Notes Treatment Notes Treatm ent Clinical Notes Feb, Depression with anxiety (ICD-10 - F41.8) continue therapy through yazdanism s SI/HI stable being off medication (Prozac, Mirtrazapine) Feb, Abdominal pain (ICD-10 - R10.9) obtain labs /US to risk staratify ? cholelithiasis vs cholecystitis Feb, Vitamin D deficiency (ICD-10 - E55.9) obtain labs Feb, Prediabetes (ICD-10 - R73.03) continue diet/exercise Feb, Hyperlipidemia (ICD-10 - E78.5) continue diet/exercise PLAN OF TREATMENT Treatment Notes Assessment Notes Clinical Notes Depression with anxiety continue therapy through churchs SI/HIstable being off medication (Prozac, Mirtrazapine) Abdominal pain obtain labs /US to r isk staratify? cholelithiasis vs cholecystitis Vitamin D deficiency obtain labs Prediabetes continue diet/exerci se Hyperlipidemia continue diet/exerci se Treatment Notes Test Name Order Date Comprehensive Metabolic Profile (CMP) 2021-02-25 LIPASE 2021-02-25 CBC with Differential 2021-02-25 [facility] GALLBLADDER U/S 2021-02-25 Next Appt Details 6 Months Reason: Provider Name:Gregory Davis, 05-02 07:15:00 AM, [address] [facility], , [place], [address], Provider Name:Amy Helton, 08-26 09:30:00 AM, [address] [facility] [phone], [place], [address], Insurance Providers Payer Name Payer Address Payer Phone Insured Name Patient Relati onship to Insured Coverage Start Date Coverage End Date [facility] [id number] [facility] 171 [id number] MUKUL ALVAREZ self
--- OUTSIDE RECORDS SUMMARY | 2021-05-19 08:10 | CCD ---
Author Author [facility] Organization [facility] Address Unknown Phone Unavailable Care Team Providers Care Jack Winder Name Role Phone Bria Kan Unavailable PROBLEMS Type Condition ICD9-CM Code [id number] Code Onset Dates Condition S tatus W/U Status Risk SNOMED Code Notes Problem Cyst of skin L72.9 Active confirmed 0995062 01 Problem Calculus of gallbladder K80.20 Active confirmed 25947952 Problem Prediabetes R73.03 Active confirmed 70469621 2 Problem Depression with anxiety F41.8 Active confirmed 966826500 Problem Vitamin D deficiency E55.9 Active confirmed 63248293 Problem Hyperlipidemia E78.5 Active confirmed 66491 004 ALLERGIES Allergen (clinical drug ingredient) Drug/Non Drug Allergy do cumented on EMR Reaction Allergy Type Onset Date Status sulfamethoxazole / trimethoprim Bactrim([facility] Code:[address]-79) Rash Drug Allergy Active ENCOUNTERS from 1987 to 2021-03-31 Encounter Location Date Provider Diagnosis [facility] Dermatology [address] [place] [address] [place] [address] 10 Mar, 2021 Bria Kan Cyst of skin L72.9 IMMUNIZATIONS Vaccine Route Administration Date Status Influenza [...] Education Language: Question Answer Notes Languages spoken: Amharic Episcopalian: Question Answer Notes Episcopalian 21 Hoahaoism Sexual Hx: Question Answer Notes [...] FOR REFERRAL No Information VITAL SIGNS Weight 181.6 lbs Mar, Weight-kg 82.37 kg Mar, Height 70 in Mar, BMI 26.05 kg/m2 Mar, Blood pressure systolic 120 mm Hg Mar, Blood pressure diastolic 76 mm Hg Mar, MEDICATIONS Medication SIG (Take, Route, Frequency, Duration) Notes Start Da te End Date Status SEROquel 25 MG 1 tablet at bedtime Orally Once a day for 30 day (s) Mar, Active FLUoxetine HCl 20 MG 1 capsule Orally Once a day for 30 day(s) Feb, Active Doxycycline Hyclate 100 MG 1 capsule Orally Twice a day with afshan d for 14 days Mar, Active PROCEDURES No Information RESULTS No Results REASON FOR VISIT CYST IS INFECTED R EAR MEDICAL (GENERAL) HISTORY Type Description Date Medical History Heel Calluses Medical History hx abdominal hernia of unkno wn type, congenital defect, s/p repair in 1987 Medical History Depression/anxiety Medical History Hyperlipidemia Medical History IFG Medical History Marijuana Surgical History abdominal hernia repair, con genital defect, unclear nature of herniation 08/1987 Surgical History cyst removal on left jawline 2017 Hospitalization History [facility] for left heal abscess 10/26-2011 Hospitalization History flu 08/1988 Hospitalization History abdominl hernia repair 08/1987 Hospitalization History Mood disorder [facility]/depression 03/20-03/24/2021 Goals Section No Information Health Concerns No Information MEDICAL EQUIPMENT No Information MENTAL STATUS No Information FUNCTIONAL STATUS No Information ASSESSMENTS Encounter Date Diagnosis Assessment Notes Treatment Notes Treatm ent Clinical Notes Mar, Cyst of skin (ICD-10 - L72.9) PLAN OF TREATMENT Next Appt Details Provider Name:Gregory Alek Davis, 05-02 07:15:00 AM, [address] [facility], , [place], [address], Provider Name:Amy Helton, 08-26 09:30:00 AM, [address] [facility], , [place], [address], Insurance Providers Payer Name Payer Address Payer Phone Insured Name Patient Relati onship to Insured Coverage Start Date Coverage End Date [facility] [id number] JOSE IRWIN [address] ALVAREZ self
--- OUTSIDE RECORDS SUMMARY | 2021-05-19 08:10 | CCD | Continuity of Care Document ---
Author Author [place] [facility] MD Organization Unknown Address [address] [address] Phone [phone] Care Team Providers Care Financial Analysis Manager Name Role Phone Ruperto Davismaribell Orr AUTM [phone] Nicole Ogden AUTM [phone] Problems Description No Information Available Social History Type Date Description Comments Sex Unknown ETOH Use 6 A Week Tobacco Use Start: 07/19/98 End: 07/19/16 Patient is a forme r smoker 1 ppd x12 yrs Recreational Drug Use Denies Drug Use Tobacco Use Start: Unknown Non Smoker Smoking Status Reviewed: 11/16/17 Patient is a former smoker 1 ppd x12 yrs Allergies and adverse reactions Active Allergies Criticality Reaction | Severity Comments [...] lb BMI (Body Mass Index) 27.0 kg/m2 [place] Body Weight 166 lb Weight 85.277 kg BSA (Body Surface Area) 2.03 m2 04/08/2021 1:50pm Height 70 inches 5'10" Weight 184.00 lb BMI (Body Mass Index) 26.4 kg/m2 [place] Body Weight 166 lb Weight 83.462 kg BSA (Body Surface Area) 2.01 m2 Results Test Acquired Date Facility Test Result H/L Range Note Abscess Culture And Gram Stain 04/08/2021 [facility] Main Lab [address] [place] [address] [phone] Gram Stain (SEE NOTE) Normal 1 Abscess [...] Amoxicillin/Clavulanate & Ampicillin/Sulbactam per [facility] standards. Procedures Date Code Description Status 04/08/2021 49257 Office/Outpatient New Low MDM 30 -44 Minutes Completed 04/08/2021 86667 I & D Abscess Simple Completed Medical Devices Description No Information Available Encounters Type Date Location Provider Dx Diagnosis Office Visit 04/15/2021 2:10p [facility] Jake Estrella MD L72.3 Sebaceous cyst Office Visit 04/08/2021 1:50p [facility] Jake Estrella MD L72.3 Sebaceous cyst Assessments Date Code Description Provider 04/15/2021 L72.3 Sebaceous cyst Jake Estrella MD 04/08/2021 L72.3 Sebaceous cyst Jake Estrella MD Plan of Treatment Future Appointment(s):* 05/27/2021 1:00 pm - Jake Estrella MD at [facility] 04/15/2021 - Jake Estrella MD* L72.3 Sebaceous cyst Functional Status Description No Information Available Mental Status Description No Information Available Referrals Refer to Reason for Referral Status Appt Jake Estrella M.D. Suspicious for malignancy on subcutaneous mass in the riight neck overlying the parotid gland Closed 04/10/[address] [place] [address] [phone]
--- OUTSIDE RECORDS SUMMARY | 2021-05-19 08:10 | CCD ---
Author Author [facility] Organization [facility] Address Unknown Phone Unavailable Care Team Providers Care Ordnance Equipment Worker Name Role Phone Amy Helton Unavailable PROBLEMS Type Condition ICD9-CM Code SFZ59-UW Code Onset Dates Condition S tatus W/U Status Risk SNOMED Code Notes Problem Cyst of skin L72.9 Active confirmed 5007574 01 Problem Calculus of gallbladder K80.20 Active confirmed 79288708 Problem Prediabetes R73.03 Active confirmed 90585619 2 Problem Depression with anxiety F41.8 Active confirmed 111891521 Problem Vitamin D deficiency E55.9 Active confirmed 44720549 Problem Hyperlipidemia E78.5 Active confirmed 09894 004 ALLERGIES Allergen (clinical drug ingredient) Drug/Non Drug Allergy do cumented on EMR Reaction Allergy Type Onset Date Status sulfamethoxazole / trimethoprim Bactrim([facility] Code:[address]-38) Rash Drug Allergy Active ENCOUNTERS from 1987 to 2021-04-07 Encounter Location Date Provider Diagnosis [address] [phone] [place] [address] Mar, Amy Nicoledeisijorge Depression with anxiety F41. 8 ; Cyst of skin L72.9 and Hospital discharge follow-up Z09 IMMUNIZATIONS Vaccine Route Administration Date Status Influenza [...] Education Language: Question Answer Notes Languages spoken: Palestinian Congregation: Question Answer Notes Congregation 21 Restorationism Sexual Hx: Question Answer Notes Had sex [...] FOR REFERRAL No Information VITAL SIGNS Weight 188.4 lbs Mar, Weight-kg 85.46 kg Mar, Height 70 in Mar, BMI 27.03 kg/m2 Mar, Heart Rate 86 /min Mar, Respiratory Rate 18 /min Mar, Temperature 97.4 degrees Fahrenheit Mar, Oximetry 98% Mar, Blood pressure systolic 114 mm Hg Mar, Blood pressure diastolic 72 mm Hg Mar, MEDICATIONS Medication SIG (Take, [...] Information RESULTS No Results REASON FOR VISIT [facility] d/c dx 03/25/21 unspec. mood disorder MEDICAL (GENERAL) HISTORY Type Description Date Medical History Heel Calluses Medical History hx abdominal hernia of unkno wn type, congenital defect, s/p repair in 1987 Medical History Depression/anxiety Medical History Hyperlipidemia Medical History IFG Medical History Marijuana Surgical History abdominal hernia repair, con genital defect, unclear nature of herniation 08/1987 Surgical History cyst removal on left jawline 2017 Hospitalization History [facility] for left heal abscess 10/26-2011 Hospitalization History flu 08/1988 Hospitalization History abdominl hernia repair 08/1987 Hospitalization History Mood disorder [facility]/depression 03/20-03/24/2021 Goals Section No Information Health Concerns No Information MEDICAL EQUIPMENT No Information MENTAL STATUS No Information FUNCTIONAL STATUS No Information ASSESSMENTS Encounter Date Diagnosis Assessment Notes Treatment Notes Treatm ent Clinical Notes Mar, Depression with anxiety (ICD-10 - F41.8) continue therapy through orthodoxy s SI/HI continue medication Mar, Cyst of skin (ICD-10 - L72.9) pending cyst incision c Derm contingency: soft tissue neck CT 03/24/2021 Thyroid us : 2.6 cm solid lesion at the area of interest. Cannot exclude parotid neoplasm. Soft tissue neck CT study should be considered. Preferably with IV contrast. Mar, Hospital discharge follow-up (ICD-10 - Z09) denies SI/HI f/u withTherapist/BH continue medication Anticipatory guidance given on red flag sxs and seeking crisis line PLAN OF TREATMENT Treatment Notes Assessment Notes Clinical Notes Depression with anxiety continue therapy through churchs SI/HIcontinue medication Cyst of skin pending cyst incisio n c Dermcontingency: soft tissue neck CT03/24/2021 Thyroid us : 2.6 cm solid lesion at the area of interest. Cannot exclude parotid neoplasm. Soft tissue neck CT study should be considered. Preferably with IV contrast. Hospital discharge follow-up denies SI/H If/u withTherapist/BHcontinue medicationAnticipatory guidance given on red flag sxs and seeking crisis line Next Appt Details Reason: Provider Name:Gregory Davis, 04-08 07:15:00 AM, [address] [place] [address], , [place], [address], Provider Name:Amy Helton, 04-15 08:30:00 AM, [facility] [phone], [place], [address], Provider Name:Gregory Davis, 05-02 07:15:00 AM, [address] [place] [address] , [place], [address], Provider Name:Amy Helton, 08-26 09:30:00 AM, [address] [facility], , [place], [address], Insurance Providers Payer Name Payer Address Payer Phone Insured Name Patient Relati onship to Insured Coverage Start Date Coverage End Date [facility] [id number] JOSE IRWIN [phone] ALVAREZ self
--- OUTSIDE RECORDS SUMMARY | 2021-05-19 08:10 | CCD ---
Author Author [facility] Organization [facility] Address Unknown Phone Unavailable Care Team Providers Care Filter Tank Tender Helper Name Role Phone Gregory Davis Unavailable PROBLEMS Type Condition ICD9-CM Code [id number] Code Onset Dates Condition S tatus W/U Status Risk SNOMED Code Notes Problem Cyst of skin L72.9 Active confirmed 6043740 01 Problem Calculus of gallbladder K80.20 Active confirmed 48102647 Problem Prediabetes R73.03 Active confirmed 55524066 2 Problem Depression with anxiety F41.8 Active confirmed 763059585 Problem Vitamin D deficiency E55.9 Active confirmed 46032092 Problem Hyperlipidemia E78.5 Active confirmed 71400 004 ALLERGIES Allergen (clinical drug ingredient) Drug/Non Drug Allergy do cumented on EMR Reaction Allergy Type Onset Date Status sulfamethoxazole / trimethoprim Bactrim([facility] Code:[address]-00) Rash Drug Allergy Active ENCOUNTERS from 1987 to 2021-05-13 Encounter Location Date Provider Diagnosis [facility] Dermatology [address] [place] [address] [place] [id number] Apr, [facility] Visit for suture removal Z48 .02 IMMUNIZATIONS Vaccine Route Administration Date Status Influenza [...] Education Language: Question Answer Notes Languages spoken: Italian Religious: Question Answer Notes Religious 21 Scientology Sexual Hx: Question Answer Notes Had sex [...] REASON FOR REFERRAL No Information VITAL SIGNS No information MEDICATIONS Medication SIG (Take, Route, Frequency, Duration) [...] day for 30 Days Feb, Active PROCEDURES from 1987 to 2021-05-13 Procedure Date Ordered Result Body Site Suture Removal 2021-05-13 N/A RESULTS No Results REASON FOR VISIT s/r [facility] MEDICAL (GENERAL) HISTORY Type Description Date Medical History Heel Calluses Medical History hx abdominal hernia of unkno wn type, congenital defect, s/p repair in 1987 Medical History Depression/anxiety Medical History Hyperlipidemia Medical History IFG Medical History Marijuana Medical History -[facility] admission Medical History 03/2021 CT neck: R parotid garrison bcutaneous mass 3.3 cm - Dr. Estrella I & D Surgical History abdominal hernia repair, con genital defect, unclear nature of herniation 08/1987 Surgical History cyst removal on left jawline 2017 Hospitalization History [facility] [place] for left heal abscess 10/26-2011 Hospitalization History flu 08/1988 Hospitalization History abdominl hernia repair 08/1987 Hospitalization History Mood disorder [facility]/depression 03/20-03/24/2021 Hospitalization History [facility] admission 04/01-04/08/2021 Goals Section No Information Health Concerns No Information MEDICAL EQUIPMENT No Information MENTAL STATUS No Information FUNCTIONAL STATUS No Information ASSESSMENTS Encounter Date Diagnosis Assessment Notes Treatment Notes Treatm ent Clinical Notes Apr, Visit for suture removal (ICD-10 - Z48.02) Well healed incision without evidence of infection to include erythema, purulent discharge or tenderness to palpation around site of healing. Patient currently without any specific complaints. After inspection, sutures were removed by non- physician office personnel. Non-physician office personnel reported that the removal went well and the patient left in stable condition. The patient was instructed to return to clinic anytime between 0700 and 1600 Wednesday-Wednesday for any issues relating to the site. If the dermatology clinic is not open, the patient was instructed to report to an emergency department. PLAN OF TREATMENT Treatment Notes Assessment Notes Clinical Notes Visit for suture removal Well healed inc ision without evidence of infection to include erythema, purulent discharge or tenderness to palpation around site of healing. Patient currently without any specific complaints. After inspection, sutures were removed by non-physician office personnel. Non-physician office personnel reported that the removal went well and the patient left in stable condition. The patient was instructed to return to clinic anytime between 0700 and 1600 Wednesday-Wednesday for any issues relating to the site. If the dermatology clinic is not open, the patient was instructed to report to an emergency department. Next Appt Details Provider Name:Amy Helton, 08-26 09:30:00 AM, [address] [facility], , [place], [address], Insurance Providers Payer Name Payer Address Payer Phone Insured Name Patient Relati onship to Insured Coverage Start Date Coverage End Date [facility] [id number] JOSE MEDINA [facility] 171 [id number] MUKUL ALVAREZ self
--- OUTSIDE RECORDS SUMMARY | 2021-05-19 08:10 | CCD | Continuity of Care Document ---
Author Author [place] ESTRELLA MD Organization Unknown Address [address] [address] Phone [phone] Care Team Providers Care Lathe Mechanic Name Role Phone Ruperto Davismaribell Orr AUTM [phone] Nicole Ogden AUTM [phone] Problems Description No Information Available Social [...] lb BMI (Body Mass Index) 27.0 kg/m2 [place] Body Weight 166 lb Weight 85.277 kg BSA (Body Surface Area) 2.03 m2 04/08/2021 1:50pm Height 70 inches 5'10" Weight 184.00 lb BMI (Body Mass Index) 26.4 kg/m2 [place] Body Weight 166 lb Weight 83.462 kg BSA (Body Surface Area) 2.01 m2 Results Test Acquired Date Facility Test Result H/L Range Note Abscess Culture And Gram Stain 04/08/2021 [facility] Main Lab 0 [place] [address] [phone] Gram Stain (SEE NOTE) Normal 1 Abscess [...] standards. Procedures Date Code Description Status 04/08/2021 56639 Office/Outpatient New Low MDM 30 -44 Minutes Completed 04/08/2021 30986 I & D Abscess Simple Completed Medical Devices Description No Information Available Encounters Type Date Location Provider Dx Diagnosis Office Visit 04/15/2021 2:10p [facility] Jake Estrella MD L72.3 Sebaceous cyst Office Visit 04/08/2021 1:50p [facility] Jake Estrella MD L72.3 Sebaceous cyst Assessments Date Code Description Provider 04/15/2021 L72.3 Sebaceous cyst Jake Estrella MD 04/08/2021 L72.3 Sebaceous cyst Jake Estrella MD Plan of Treatment Future Appointment(s):* 05/27/2021 1:00 pm - Jake Estrella MD at [facility] 04/15/2021 - Jake Estrella MD* L72.3 Sebaceous cyst Functional Status Description No Information Available Mental Status Description No Information Available Referrals Refer to Reason for Referral Status Appt Jake Estrella M.D. Suspicious for malignancy on subcutaneous mass in the riight neck overlying the parotid gland Closed 04/10/[address] [place] [address] [phone]
--- OUTSIDE RECORDS SUMMARY | 2021-05-19 08:10 | CCD | Continuity of Care Document ---
Author Author [place] ESTRELLA MD Organization Unknown Address [address] [address] Phone [phone] Care Team Providers Care Warehouse Assistant Name Role Phone Ruperto Davismaribell Orr AUTM [phone] Nicole Ogden AUTM Problems Description No Information Available Social History [...] lb BMI (Body Mass Index) 27.0 kg/m2 [place] Body Weight 166 lb Weight 85.277 kg BSA (Body Surface Area) 2.03 m2 04/08/2021 1:50pm Height 70 inches 5'10" Weight 184.00 lb BMI (Body Mass Index) 26.4 kg/m2 [place] Body Weight 166 lb Weight 83.462 kg BSA (Body Surface Area) 2.01 m2 Results Test Acquired Date Facility Test Result H/L Range Note Abscess Culture And Gram Stain 04/08/2021 [facility] Main Lab 0 [place] [address] [phone] Gram Stain (SEE NOTE) Normal 1 Abscess [...] 1:00 pm - Jake Estrella MD at [facility] 04/15/2021 - Jake Estrella MD* L72.3 Sebaceous cyst Functional Status Description No Information Available Mental Status Description No Information Available Referrals Refer to Dr Reason for Referral Status Appt Date Jake Estrella M.D. Suspicious for malignancy on subcutaneous mass in the riight neck overlying the parotid gland Closed 04/10/[address] [place] [address] [phone]
--- OUTSIDE RECORDS SUMMARY | 2021-05-19 08:10 | CCD | Continuity of Care Document ---
Author Author [place] ESTRELLA MD Organization Unknown Address [address] [address] Phone [phone] Care Team Providers Care Head Cashier Name Role Phone Ruperto Davismaribell Orr AUTM [phone] Nicole Ogden AUTM Problems Description No Information [...] lb BMI (Body Mass Index) 27.0 kg/m2 [place] Body Weight 166 lb Weight 85.277 kg BSA (Body Surface Area) 2.03 m2 04/08/2021 1:50pm Height 70 inches 5'10" Weight 184.00 lb BMI (Body Mass Index) 26.4 kg/m2 [place] Body Weight 166 lb Weight 83.462 kg BSA (Body Surface Area) 2.01 m2 Results Test Acquired Date Facility Test Result H/L Range Note Abscess Culture And Gram Stain 04/08/2021 [facility] Main Lab 0 [place] [address] [phone] Gram Stain (SEE NOTE) Normal 1 Abscess [...] MD at [facility] 04/15/2021 - Jake Estrella MD* L72.3 Sebaceous cyst Functional Status Description No Information Available Mental Status Description No Information Available Referrals Refer to Dr Reason for Referral Status Appt Date Jake Estrella M.D. Suspicious for malignancy on subcutaneous mass in the riight neck overlying the parotid gland Closed 04/10/[address] [place] [address] [phone]
--- OUTSIDE RECORDS SUMMARY | 2021-05-19 08:10 | CCD ---
Author Author [facility] Organization [facility] Address Unknown Phone Unavailable Care Team Providers Care Warper Tender Name Role Phone Gregory Davis Unavailable PROBLEMS Type Condition ICD9-CM Code [id number] Code Onset Dates Condition S tatus W/U Status Risk SNOMED Code Notes Problem Cyst of skin L72.9 Active confirmed 3531710 01 Problem Calculus of gallbladder K80.20 Active confirmed 30212443 Problem Prediabetes R73.03 Active confirmed 38448986 2 Problem Depression with anxiety F41.8 Active confirmed 966614451 Problem Vitamin D deficiency E55.9 Active confirmed 20456780 Problem Hyperlipidemia E78.5 Active confirmed 13395 004 ALLERGIES Allergen (clinical drug ingredient) Drug/Non Drug Allergy do cumented on EMR Reaction Allergy Type Onset Date Status Bactrim Rash Drug Allergy Active ENCOUNTERS from 1987 to 2021-04-08 Encounter Location Date Provider Diagnosis [facility] Dermatology [address] [facility] [phone] [place] [address] Mar, Gregorymari Davis IMMUNIZATIONS Vaccine Route Administration Date Status Influenza [...] Education Language: Question Answer Notes Languages spoken: Mongolian Church: Question Answer Notes Church 21 Confucianist Sexual Hx: Question Answer Notes Had sex [...] Information RESULTS No Results REASON FOR VISIT ABNORMAL CT SCAN MEDICAL (GENERAL) HISTORY Type Description Date Medical History Heel Calluses Medical History hx abdominal hernia of unkno wn type, congenital defect, s/p repair in 1987 Medical History Depression/anxiety Medical History Hyperlipidemia Medical History IFG Medical History Marijuana Surgical History abdominal hernia repair, con genital defect, unclear nature of herniation 08/1987 Surgical History cyst removal on left jawline 2017 Hospitalization History [facility] for left heal abscess 10/26-2011 Hospitalization History flu 08/1988 Hospitalization History abdominl hernia repair 08/1987 Hospitalization History Mood disorder [facility]/depression 03/20-03/24/2021 Goals Section No Information Health Concerns No Information MEDICAL EQUIPMENT No Information MENTAL STATUS No Information FUNCTIONAL STATUS No Information ASSESSMENTS No Information PLAN OF TREATMENT Next Appt Details Provider Name:Amy Helton 04-15 08:30:00 AM, [facility] [facility], , [place], [address], Provider Name:Gregory Davis, 05-02 07:15:00 AM, [address] [facility], , [place], [address], Provider Name:Amy Nicolezenobia, 08-26 09:30:00 AM, [address] [facility], , [place], [address], Insurance Providers Payer Name Payer Address Payer Phone Insured Name Patient Relati onship to Insured Coverage Start Date Coverage End Date [facility] [id number] JOSE IRWIN 171 [address] MUKUL ALVAREZ self
--- OUTSIDE RECORDS SUMMARY | 2021-05-19 08:10 | CCD | Continuity of Care Document ---
Author Author [place] ESTRELLA MD Organization Unknown Address [address] [address] Phone [phone] Care Team Providers Care Senior Software Tester Name Role Phone Ruperto Davismaribell Orr AUTM [phone] Nicole Ogden AUTM Problems Description No Information [...] lb BMI (Body Mass Index) 27.0 kg/m2 [place] Body Weight 166 lb Weight 85.277 kg BSA (Body Surface Area) 2.03 m2 04/08/2021 1:50pm Height 70 inches 5'10" Weight 184.00 lb BMI (Body Mass Index) 26.4 kg/m2 [place] Body Weight 166 lb Weight 83.462 kg BSA (Body Surface Area) 2.01 m2 Results Test Acquired Date Facility Test Result H/L Range Note Abscess Culture And Gram Stain 04/08/2021 [facility] Main Lab 0 [place] [address] [phone] Gram Stain (SEE NOTE) Normal 1 Abscess [...] 1:00 pm - Jake Estrella MD at [facility] 04/15/2021 - Jake Estrella MD* L72.3 Sebaceous cyst Functional Status Description No Information Available Mental Status Description No Information Available Referrals Refer to Dr Reason for Referral Status Appt Date Jake Estrella M.D. Suspicious for malignancy on subcutaneous mass in the riight neck overlying the parotid gland Closed 04/10/[address] [place] [address] [phone]
--- OUTSIDE RECORDS SUMMARY | 2021-05-19 08:10 | CCD ---
Author Author [facility] Organization [facility] Address Unknown Phone Unavailable Care Team Providers Care Coagulating Drying Supervisor Name Role Phone Amy Helton Unavailable PROBLEMS Type Condition ICD9-CM Code [id number] Code Onset Dates Condition S tatus W/U Status Risk SNOMED Code Notes Problem Cyst of skin L72.9 Active confirmed 9694987 01 Problem Calculus of gallbladder K80.20 Active confirmed 73683869 Problem Prediabetes R73.03 Active confirmed 58831794 2 Problem Depression with anxiety F41.8 Active confirmed 275503024 Problem Vitamin D deficiency E55.9 Active confirmed 59550190 Problem Hyperlipidemia E78.5 Active confirmed 31755 004 ALLERGIES Allergen (clinical drug ingredient) Drug/Non Drug Allergy do cumented on EMR Reaction Allergy Type Onset Date Status sulfamethoxazole / trimethoprim Bactrim([facility] Code:[address]-63) Rash Drug Allergy Active ENCOUNTERS from 1987 to 2021-03-18 Encounter Location Date Provider Diagnosis [address] [phone] [place] [address] Feb, Amy Helton Calculus of gallbladder K80. 20 and Depression with anxiety F41.8 IMMUNIZATIONS Vaccine Route Administration Date Status Influenza [...] Education Language: Question Answer Notes Languages spoken: Japanese Zoroastrianism: Question Answer Notes Zoroastrianism 21 [employer] Sexual Hx: Question Answer Notes Had sex [...] a day for 30 day(s) Feb, Active PROCEDURES No Information RESULTS No Results REASON FOR VISIT CT abd MEDICAL (GENERAL) HISTORY Type Description Date Medical History Heel Calluses Medical History hx abdominal hernia of unkno wn type, congenital defect, s/p repair in 1987 Medical History Depression/anxiety Medical History Hyperlipidemia Medical History IFG Medical History Marijuana Surgical History abdominal hernia repair, con genital defect, unclear nature of herniation 08/1987 Surgical History cyst removal on left jawline 2017 Hospitalization History [facility] for left heal abscess 10/26-2011 Hospitalization History flu 08/1988 Hospitalization History abdominl hernia repair 08/1987 Goals Section No Information Health Concerns No Information MEDICAL EQUIPMENT No Information MENTAL STATUS No Information FUNCTIONAL STATUS No Information ASSESSMENTS Encounter Date Diagnosis Assessment Notes Treatment Notes Treatm ent Clinical Notes Feb, Calculus of gallbladder (ICD-10 - K80.20) Gall bladder US: Likely gallbladder sludge and stones and less likely representing mass, consider pre and post contrast CT of the Abdomen given persistent pain obtain CT abd Feb, Depression with anxiety (ICD-10 - F41.8) PLAN OF TREATMENT Medication Medication Name Sig Start Date Stop Date FLUoxetine HCl 20 MG 1 capsule Orally Once a day for 30 day(s) 3 0 Feb, 2021 Treatment Notes Assessment Notes Clinical Notes Calculus of gallbladder Gall bladder US: Likely gallbladder sludge and stones and less likely representing mass, consider pre and post contrast CT of the Abdomen given persistent pain obtain CT abd Treatment Notes Test Name Order Date CT ABD & Pelvis w/o FOL by WIT 2021-03-17 Next Appt Details Provider Name:Gregory Davis, 05-02 07:15:00 AM, [address] [facility], , [place], [address], Provider Name:Amy Helton, 08-26 09:30:00 AM, [address] [facility], , [place], [address], Insurance Providers Payer Name Payer Address Payer Phone Insured Name Patient Relati onship to Insured Coverage Start Date Coverage End Date [facility] [id number] JOSE IRWIN 171 [address] MUKUL ALVAREZ self
--- OUTSIDE RECORDS SUMMARY | 2021-05-19 08:10 | CCD ---
Author Author [facility] Organization [facility] Address Unknown Phone Unavailable Care Team Providers Care Multiple Knife Edge Trimmer Operator Name Role Phone Gregory Davis Unavailable PROBLEMS Type Condition ICD9-CM Code KAO40-RH Code Onset Dates Condition S tatus W/U Status Risk SNOMED Code Notes Problem Cyst of skin L72.9 Active confirmed 0040063 01 Problem Calculus of gallbladder K80.20 Active confirmed 04268069 Problem Prediabetes R73.03 Active confirmed 66589182 2 Problem Depression with anxiety F41.8 Active confirmed 191734746 Problem Vitamin D deficiency E55.9 Active confirmed 46051626 Problem Hyperlipidemia E78.5 Active confirmed 24621 004 ALLERGIES Allergen (clinical drug ingredient) Drug/Non Drug Allergy do cumented on EMR Reaction Allergy Type Onset Date Status Bactrim Rash Drug Allergy Active ENCOUNTERS from 1987 to 2021-04-08 Encounter Location Date Provider Diagnosis [facility] Dermatology [address] [facility] [phone] [place] [address] Mar, Gregorymari Davis IMMUNIZATIONS Vaccine Route Administration [...] Education Language: Question Answer Notes Languages spoken: Telugu Gnosticism: Question Answer Notes Gnosticism 21 Anabaptist Sexual Hx: Question Answer Notes Had sex [...] Information RESULTS No Results REASON FOR VISIT urgent referral - neoplasm MEDICAL (GENERAL) HISTORY Type Description Date Medical History Heel Calluses Medical History hx abdominal hernia of unkno wn type, congenital defect, s/p repair in 1987 Medical History Depression/anxiety Medical History Hyperlipidemia Medical History IFG Medical History Marijuana Surgical History abdominal hernia repair, con genital defect, unclear nature of herniation 08/1987 Surgical History cyst removal on left jawline 2017 Hospitalization History [facility] for left heal abscess 10/26-2011 Hospitalization History flu 08/1988 Hospitalization History abdominl hernia repair 08/1987 Hospitalization History Mood disorder [facility]/depression 03/20-03/24/2021 Goals Section No Information Health Concerns No Information MEDICAL EQUIPMENT No Information MENTAL STATUS No Information FUNCTIONAL STATUS No Information ASSESSMENTS No Information PLAN OF TREATMENT Next Appt Details Provider Name:Amy Helton 04-15 08:30:00 AM, [address] [facility], , [place], [address], Provider Name:Gregory Davis 05-02 07:15:00 AM, [address] [facility], , [place], [address], Provider Name:Amy Nicolezenobia, 08-26 09:30:00 AM, [address] [facility], , [place], [address], Insurance Providers Payer Name Payer Address Payer Phone Insured Name Patient Relati onship to Insured Coverage Start Date Coverage End Date [facility] [id number] JOSE IRWIN 171 77 MUKUL ALVAREZ self
--- OUTSIDE RECORDS SUMMARY | 2021-05-19 08:10 | CCD | Continuity of Care Document ---
Author Author [place] ESTRELLA MD Organization Unknown Address [address] [address] Phone [phone] Care Team Providers Care Reforestation Worker Name Role Phone Ruperto Davismaribell Orr AUTM [phone] Nicole Ogden AUTM [phone] Problems Description No Information Available Social [...] Available Vital Signs Date Vital Result Comment 04/08/2021 1:50pm Height 70 inches 5'10" Weight 184.00 lb BMI (Body Mass Index) 26.4 kg/m2 [place] Body Weight 166 lb Weight 83.462 kg BSA (Body Surface Area) 2.01 m2 11/24/2017 10:55am BP Systolic 126 mmHg BP Diastolic 74 mmHg Height 70 inches 5'10" Weight 209.00 lb BMI (Body Mass Index) 30.0 kg/m2 [place] Body Weight 166 lb Weight 94.802 kg BSA (Body Surface Area) 2.13 m2 Results Description No Information Available Procedures Description No Information Available Medical Devices Description No Information Available Encounters Description No Information Available Assessments Date Code Description Provider 04/08/2021 L72.3 Sebaceous cyst Jake Estrella MD Plan of Treatment No Information Available Functional Status Description No Information Available Mental Status Description No Information Available Referrals Refer to Reason for Referral Status Appt Date Jake Estrella M.D. Suspicious for malignancy on subcutaneous mass in the riight neck overlying the parotid gland Scheduled 04/10/[address] [place] [address] [phone]
--- OUTSIDE RECORDS SUMMARY | 2021-05-19 08:10 | CCD ---
Author Author [facility] Organization [facility] Address Unknown Phone Unavailable Care Team Providers [facility] Host[facility] Name Role Phone Amy Helton Unavailable PROBLEMS Type Condition ICD9-CM Code [id number] Code Onset Dates Condition S tatus W/U Status Risk SNOMED Code Notes Problem Cyst of skin L72.9 Active confirmed 4350709 01 Problem Calculus of gallbladder K80.20 Active confirmed 86932914 Problem Prediabetes R73.03 Active confirmed 38228088 2 Problem Depression with anxiety F41.8 Active confirmed 190120659 Problem Vitamin D deficiency E55.9 Active confirmed 16677162 Problem Hyperlipidemia E78.5 Active confirmed 45433 004 ALLERGIES Allergen (clinical drug ingredient) Drug/Non Drug Allergy do cumented on EMR Reaction Allergy Type Onset Date Status sulfamethoxazole / trimethoprim Bactrim([facility] Code:[address]-41) Rash Drug Allergy Active ENCOUNTERS from 1987 to 2021-04-23 Encounter Location Date Provider Diagnosis [address] [phone] [place] [address] Mar, Amy Helton Depression with anxiety F41. 8 and Cyst of skin L72.9 IMMUNIZATIONS Vaccine Route [...] Education Language: Question Answer Notes Languages spoken: Belgian Sikhism: Question Answer Notes Sikhism 21 Adventist Sexual Hx: Question Answer Notes Had sex [...] No Information VITAL SIGNS Weight 189 lbs Mar, Weight-kg 85.73 kg Mar, Height 70 in Mar, BMI 27.12 kg/m2 Mar, Heart Rate 87 /min Mar, Respiratory Rate 18 /min Mar, Temperature 97.8 degrees Fahrenheit Mar, Oximetry 98% Mar, Blood pressure systolic 116 mm Hg Mar, Blood pressure diastolic 72 mm Hg Mar, MEDICATIONS Medication SIG (Take, Route, Frequency, Duration) Notes Start Da te End Date Status Wellbutrin SR 150 MG 1 tablet in the morning Orally Once a day Active FLUoxetine HCl 40 MG 2 capsule Orally Once a day for 30 Days Feb, Active busPIRone HCl 10 MG 2 tablet Orally Twice a day Active Doxycycline Hyclate 100 MG 1 capsule Orally Twice a day with afshan d for 14 days Mar, Active Abilify 5 MG 1 tablet Orally bid Act leah PROCEDURES No Information RESULTS No Results REASON FOR VISIT [facility] Hospital Follow up MEDICAL (GENERAL) HISTORY Type Description Date Medical History Heel Calluses Medical History hx abdominal hernia of unkno wn type, congenital defect, s/p repair in 1987 Medical History Depression/anxiety Medical History Hyperlipidemia Medical History IFG Medical History Marijuana Medical History [facility] admission Medical History 03/2021 CT neck: R parotid [facility] bcutaneous mass 3.3 cm - Dr. Estrella I & D Surgical History abdominal hernia repair, con genital defect, unclear nature of herniation 08/1987 Surgical History cyst removal on left jawline 2017 Hospitalization History [facility] for left heal abscess 10/26-2011 Hospitalization History flu 08/1988 Hospitalization History abdominl hernia repair 08/1987 Hospitalization History Mood disorder [facility]/depression 03/20-03/24/2021 Hospitalization History [facility] admission 04/01-04/08/2021 Goals Section No Information Health Concerns No Information MEDICAL EQUIPMENT No Information MENTAL STATUS No Information FUNCTIONAL STATUS No Information ASSESSMENTS Encounter Date Diagnosis Assessment Notes Treatment Notes Treatm ent Clinical Notes Mar, Depression with anxiety (ICD-10 - F41.8) s SI/HI continue medication Strongly recommended close f/u with [facility] given multiple medication regimen. recurrent [facility] admisssion needs group home therapy/f/u patient understand and agrees Rx sent for prozac 40mg for compliance Mar, Cyst of skin (ICD-10 - L72.9) cyst incision/drainage c Dr. Estrella Report not available s post op infection 03/2021 CT neck: 3.3 subcutaneous mass on R parotid 03/24/2021 Thyroid us : 2.6 cm solid lesion at the area of interest. Cannot exclude parotid neoplasm. Soft tissue neck CT study should be considered. Preferably with IV contrast. PLAN OF TREATMENT Medication Medication Name Sig Start Date Stop Date busPIRone HCl 10 MG 2 tablet Orally Twice a day Wellbutrin SR 150 MG 1 tablet in the morning Orally Once a day FLUoxetine HCl 40 MG 2 capsule Orally Once a day for 30 Days Feb, Abilify 5 MG 1 tablet Orally bid Treatment Notes Assessment Notes Clinical Notes Depression with anxiety s SI/HIcontinue medicationStrongly recommended close f/u with [facility] given multiple medication regimen. recurrent [facility] admisssion needs group home therapy/f/upatient understand and agreesRx sent for prozac 40mg for compliance Cyst of skin cyst incision/draina ge c Dr. Diaz not availables post op infection03/2021 CT neck: 3.3 subcutaneous mass on R parotid03/24/2021 Thyroid us : 2.6 cm solid lesion at the area of interest. Cannot exclude parotid neoplasm. Soft tissue neck CT study should be considered. Preferably with IV contrast. Next Appt Details Reason: Provider Name:Gregory Davis, 05-02 07:15:00 AM, [address] [facility], , [place], [address], Provider Name:Amy Danie, 08-26 09:30:00 AM, [address] [facility], , [place], [address], Insurance Providers Payer Name Payer Address Payer Phone Insured Name Patient Relati onship to Insured Coverage Start Date Coverage End Date [facility]LY [facility] [id number] JOSE IRWIN [id number]UL ALVAREZ self
--- OUTSIDE RECORDS SUMMARY | 2021-05-19 08:11 | CCD ---
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 Name Role Phone Jake Estrella MD Unavailable Unavailable Jake Estrella MD Unavailable Unavailable Jake Estrella MD Unavailable Unavailable Jake Estrella MD Unavailable Unavailable Jake Estrella MD Unavailable Unavailable Jake Estrella MD Unavailable Unavailable Jake Estrella MD Unavailable Unavailable Jake Estrella MD Unavailable Unavailable Jake Estrella MD Unavailable Unavailable Jake Estrella MD Unavailable Unavailable Jake Estrella MD Unavailable Unavailable Jake Estrella MD Unavailable Unavailable Jake Estrella MD Unavailable Unavailable Jake Estrella MD Unavailable Unavailable Jake Estrella MD Unavailable Unavailable [place], Jake MD Unavailable Unavailable [place], Jake MD Unavailable Unavailable [place], Jake MD Unavailable Unavailable [place], Jake MD Unavailable Unavailable [place], Jake MD Unavailable Unavailable [place], Jake MD Unavailable Unavailable [place], Jake MD Unavailable Unavailable [place], Jake MD Unavailable Unavailable [place], Jake MD Unavailable Unavailable [place], Jake MD Unavailable Unavailable [place], Jake MD Unavailable Unavailable [place], Jake MD Unavailable Unavailable [place], Jake MD Unavailable Unavailable [place], Jake MD Unavailable Unavailable [place], Jake MD Unavailable Unavailable [place], Jake MD Unavailable Unavailable Re-disclosure Warning The records that you are about to access may contain information from federally-assisted alcohol or drug abuse programs. If such information is present, then the following federally mandated warning applies: This information has been disclosed to you from records protected by federal confidentiality rules (42 CFR part 2). The federal rules prohibit you from making any further disclosure of this information unless further disclosure is expressly permitted by the written consent of the person to whom it pertains or as otherwise permitted by 42 CFR part 2. A general authorization for the release of medical or other information is NOT sufficient for this purpose. The Federal rules restrict any use of the information to criminally investigate or prosecute any alcohol or drug abuse patient.The records that you are about to access may contain highly sensitive health information, the redisclosure of which is protected by Article 27-F of the [facility] Public Health law. If you continue you may have access to information: Regarding HIV / AIDS; Provided by facilities licensed or operated by the [facility] Office of Mental Health; or Provided by the [facility] Office for People With Developmental Disabilities. If such information is present, then the following [facility] mandated warning applies: This information has been disclosed to you from confidential records which are protected by state law. State law prohibits you from making any further disclosure of this information without the specific written consent of the person to whom it pertains, or as otherwise permitted by law. Any unauthorized further disclosure in violation of state law may result in a fine or senior living sentence or both. A general authorization for the release of medical or other information is NOT sufficient authorization for further disc losure. Family History Family Member Name Family Member Gender Family Member Status Date o f Status Description Data Source(s) Unknown Unknown Problem MEDENT ([facility], ) father Unknown Male Problem [facility] ([facility] Unknown Female Unknown Unknown Problem MEDENT (Sabino Anand MD, ) Encounters Encounter Providers Location Date Indications Data Source(s ) [place] [address] [place] [address] 05/13/2021 12:00:00 AM EDT eCW1 ([facility]) [place] [address] [place] [address] 05/02/2021 12:00:00 AM EDT eCW1 ([facility]) Office Visit Attender: Jake Wilson/Delores/Ron/Reind l 04/15/2021 02:10:00 PM EDT MEDENT ([facility], ) [place] [address] [place] [address] 04/15/2021 12:00:00 AM EDT eCW1 ([facility]) Outpatient Attender: Jake Wilson/Delores/Ron/Reind l 04/08/2021 01:50:00 PM EDT MEDENT ([facility] [place] [address] [place] [address] 04/08/2021 12:00:00 AM EDT eCW1 ([facility]) [place] [address] [place] [address] 04/08/2021 12:00:00 AM EDT eCW1 ([facility]) Unknown [address] [place] [address] 04/04/2021 12:00:00 AM EDT eCW1 ([facility]) [place] [address] [place] [address] 03/31/2021 12:00:00 AM EDT eCW1 ([facility]) [place]patient [address] [place] [address] 03/28/2021 12:00:00 AM EDT eCW1 ([facility]) Unknown [address] [place] [address] 03/17/2021 12:00:00 AM EDT eCW1 ([facility]) [place] [address] [place] [address] 02/25/2021 12:00:00 AM EDT eCW1 ([facility]) [place] [address] [place] [address] 01/15/2021 12:00:00 AM EDT eCW1 ([facility]) Unknown [address] [place] [address] 10/08/2020 12:00:00 AM EDT eCW1 ([facility]) [place] [address] [facility] [place] [address] 08/27/2020 12:00:00 AM EST eCW1 ([facility]) Unknown [address] [place] [address] 08/12/2020 12:00:00 AM EST eCW1 ([facility]) Medications Medication Brand Name Start Date Product Form Dose Route Admi nistrative Instructions Pharmacy Instructions Status Indications Reaction Description Data Source(s) doxycycline hyclate 100 MG Oral Capsule Doxycycline Hy clate 100 MG Doxycycline Hyclate 100 MG 03/28/2021 12:00:00 AM EDT 1.0 {capsule} active Doxycycline Hyclate 100 MG eCW1 ([facility]) quetiapine 25 MG Oral Tablet [Seroquel] SEROquel 25 MG SEROq uel 25 MG 03/28/2021 12:00:00 AM EDT 1.0 {tablet_at_bedtime} active SEROquel 25 MG eCW1 ([facility]) quetiapine 25 MG Oral Tablet [Seroquel] SEROquel 25 MG SEROq uel 25 MG 03/28/2021 12:00:00 AM EDT 1.0 {tablet_at_bedtime} active SEROquel 25 MG eCW1 ([facility]) doxycycline hyclate 100 MG Oral Capsule Doxycycline Hy clate 100 MG Doxycycline Hyclate 100 MG 03/28/2021 12:00:00 AM EDT 1.0 {capsule} active Doxycycline Hyclate 100 MG eCW1 ([facility]) doxycycline hyclate 100 MG Oral Capsule Doxycycline Hy clate 100 MG Doxycycline Hyclate 100 MG 03/28/2021 12:00:00 AM EDT 1.0 {capsule} active Doxycycline Hyclate 100 MG eCW1 ([facility]) doxycycline hyclate 100 MG Oral Capsule Doxycycline Hy clate 100 MG Doxycycline Hyclate 100 MG 03/28/2021 12:00:00 AM EDT 1.0 {capsule} active Doxycycline Hyclate 100 MG eCW1 ([facility]) quetiapine 25 MG Oral Tablet [Seroquel] SEROquel 25 MG SEROq uel 25 MG 03/28/2021 12:00:00 AM EDT 1.0 {tablet_at_bedtime} active SEROquel 25 MG eCW1 ([facility]) quetiapine 25 MG Oral Tablet [Seroquel] SEROquel 25 MG SEROq uel 25 MG 03/28/2021 12:00:00 AM EDT 1.0 {tablet_at_bedtime} active SEROquel 25 MG eCW1 ([facility]) doxycycline hyclate 100 MG Oral Capsule Doxycycline Hy clate 100 MG Doxycycline Hyclate 100 MG 03/28/2021 12:00:00 AM EDT 1.0 {capsule} active Doxycycline Hyclate 100 MG eCW1 ([facility]) doxycycline hyclate 100 MG Oral Capsule Doxycycline Hy clate 100 MG Doxycycline Hyclate 100 MG 03/28/2021 12:00:00 AM EDT 1.0 {capsule} active Doxycycline Hyclate 100 MG eCW1 ([facility]) doxycycline hyclate 100 MG Oral Capsule Doxycycline Hy clate 100 MG Doxycycline Hyclate 100 MG 03/28/2021 12:00:00 AM EDT 1.0 {capsule} active Doxycycline Hyclate 100 MG eCW1 ([facility]) quetiapine 25 MG Oral Tablet [Seroquel] SEROquel 25 MG SEROq uel 25 MG 03/28/2021 12:00:00 AM EDT 1.0 {tablet_at_bedtime} active SEROquel 25 MG eCW1 ([facility]) doxycycline hyclate 100 MG Oral Capsule Doxycycline Hy clate 100 MG Doxycycline Hyclate 100 MG 03/28/2021 12:00:00 AM EDT 1.0 {capsule} active Doxycycline Hyclate 100 MG eCW1 ([facility]) Fluoxetine 20 MG Oral Capsule FLUoxetine HCl 20 MG FLUoxetin e HCl 20 MG 03/17/2021 12:00:00 AM EDT 1.0 {capsule} active FLUoxetine HCl 20 MG eCW1 ([facility]) Fluoxetine 20 MG Oral Capsule FLUoxetine HCl 20 MG FLUoxetin e HCl 20 MG 03/17/2021 12:00:00 AM EDT 1.0 {capsule} active FLUoxetine HCl 20 MG eCW1 ([facility]) Fluoxetine 40 MG Oral Capsule FLUoxetine HCl 40 MG FLUoxetin e HCl 40 MG 03/17/2021 12:00:00 AM EDT 2.0 {capsule} active FLUoxetine HCl 40 MG eCW1 ([facility]) Fluoxetine 20 MG Oral Capsule FLUoxetine HCl 20 MG FLUoxetin e HCl 20 MG 03/17/2021 12:00:00 AM EDT 1.0 {capsule} active FLUoxetine HCl 20 MG eCW1 ([facility]) Fluoxetine 40 MG Oral Capsule FLUoxetine HCl 40 MG FLUoxetin e HCl 40 MG 03/17/2021 12:00:00 AM EDT 2.0 {capsule} active FLUoxetine HCl 40 MG eCW1 ([facility]) Fluoxetine 20 MG Oral Capsule FLUoxetine HCl 20 MG FLUoxetin e HCl 20 MG 03/17/2021 12:00:00 AM EDT 1.0 {capsule} active FLUoxetine HCl 20 MG eCW1 ([facility]) Fluoxetine 40 MG Oral Capsule FLUoxetine HCl 40 MG FLUoxetin e HCl 40 MG 03/17/2021 12:00:00 AM EDT 2.0 {capsule} active FLUoxetine HCl 40 MG eCW1 ([facility]) Fluoxetine 20 MG Oral Capsule FLUoxetine HCl 20 MG FLUoxetin e HCl 20 MG 03/17/2021 12:00:00 AM EDT 1.0 {capsule} active FLUoxetine HCl 20 MG eCW1 ([facility]) Fluoxetine 20 MG Oral Capsule FLUoxetine HCl 20 MG FLUoxetin e HCl 20 MG 03/17/2021 12:00:00 AM EDT 1.0 {capsule} active FLUoxetine HCl 20 MG eCW1 ([facility]) doxycycline hyclate 100 MG Oral Capsule Doxycycline Hy clate 100 MG Doxycycline Hyclate 100 MG 01/15/2021 12:00:00 AM EDT 1.0 {capsule} active Doxycycline Hyclate 100 MG eCW1 ([facility]) Amoxicillin 875 MG / Clavulanate 125 MG Oral Tablet Amoxicillin-Pot Clavulanate 875-125 MG Amoxicillin-Pot Clavulanate 875-125 MG 08/27/2020 12:00:00 AM ES T 1.0 {tablet} suspended Amoxicillin-Pot C lavulanate 875-125 MG eCW1 ([facility]) Amoxicillin 875 MG / Clavulanate 125 MG Oral Tablet Amoxicillin-Pot Clavulanate 875-125 MG Amoxicillin-Pot Clavulanate 875-125 MG 08/27/2020 12:00:00 AM ES T 1.0 {tablet} active Amoxicillin-Pot Cla vulanate 875-125 MG eCW1 ([facility]) Amoxicillin 875 MG / Clavulanate 125 MG Oral Tablet Amoxicillin-Pot Clavulanate 875-125 MG Amoxicillin-Pot Clavulanate 875-125 MG 08/27/2020 12:00:00 AM ES T 1.0 {tablet} active Amoxicillin-Pot Cla vulanate 875-125 MG eCW1 ([facility]) Insurance Providers Payer name Policy type / Coverage type Policy ID Covered constitution party ID Covered constitution party's relationship to franks Policy Franks Plan Information Managed Care Enrico Miller [id number] S [id number] Managed Care Enrico Miller [id number] S [id number] Medicaid S [id number] S [id number] Medicaid Dental O [id number] S [id number] Medicaid S [id number] S [id number] Medicaid S [id number] S [id number] [facility] Care Enrico Miller [id number] S [id number] [place] Care [facility] Commercial [id number] Self [id number] Medicaid S [id number] S [id number] Medicaid S [id number] S [id number] ANSI-Commercial [id number] ANSI-Medicaid [id number] ANSI-Commercial [id number] ANSI-Medicaid [id number] ANSI-Commercial [id number] ANS-Medicaid [id number] [place] [id number] SP [id number] 100 D Managed Care [place] O [id number] S [id number] Managed Care En[place] P [id number] S [id number] [place] Care [place] [id number] Self [id number] [place] Care [place] [id number] Self [id number] [place] Health Maintenance Organization (O) [id number] Self [id number] [place] [id number] SP [id number] MEDICAID [id number] SP [id number] SELF PAY ONLY [id number] SP [id number] [facility] [id number] SP [id number] [place] Medicaid/CHP/FHP Commercial [id number] Self [place] [facility] Commercial [id number] Self BC CAPITOL BLUE CROSS [id number] SP [id number] BC CAPITOL BLUE CROSS [id number] SP [id number] ENIRCO [id number] SP [id number] 100 [place] [id number] S [id number] ANSI-Commercial [id number] ANSI-Medicaid [id number] ANSI-Medicaid [id number] ANSI-Commercial [id number] ANSI-Medicaid [id number] ANSI-Commercial [id number] Problems, Conditions, and Diagnoses Code Display Name Description Problem Type Effective Dates Data Source(s) K80.20 Cholelithiasis without obstruction Calculus of gallbla dder Problem 03/17/2021 12:00:00 AM EDT eCW1 ([facility]) L72.9 [id number] Cyst of skin Problem 01/15/2021 12:00:00 AM EDT eCW1 ([facility]) E78.5 Hyperlipidemia Hyperlipidemia Problem 08/27/2020 12:00: 00 AM EST eCW1 ([facility]) Surgeries/Procedures Procedure Description Date Indications Data Source(s) Suture Removal 05/13/2021 12:00:00 AM EDT eCW1 ([facility]) I & D Abscess Simple 04/08/2021 12:00:00 AM EDT MEDENT ([facility]) OFFICE OUTPATIENT NEW 30 MINUTES 04/08/2021 12:00:00 A M EDT MEDENT ([facility]) Injection, triamcinolone acetonide, not otherwise specified , 10 mg 01/15/2021 12:00:00 AM EDT eCW1 ([facility]) Results ID Date Data Source [id number] 04/08/2021 03:17:00 PM EDT MEDENT ([facility]) Name Value Range Interpretation Code Description Data Vianney rce(s) Supporting Document(s) Gram Stain Laboratory test result Normal (applies to non-n umeric results) MEDENT ([facility]) FEW WBCS NO ORGANISMS SEEN Abscess Culture Laboratory test result Normal (a pplies to non-numeric results) MEDENT ([facility]) <content>FULL REPORT IN LAB NOTES (eCW a nd Medent).</content>
<content></content>
<content>ORGANISM 1: STAPHYLOCOCCUS EPIDERMIDIS</content>
<content></content>
<content> QUANTITY OF GROWTH FEW</content>
<content></content>
<content></content>
<content>ORGAN ISM 1: STAPHYLOCOCCUS EPIDERMIDIS</content>
<content></content>
<content>STAPHYLOCOCCUS EPIDERMIDIS: REACTION</content>
<content>ICR (INDUCIBLE CC RESISTANCE) IV ICR TEST RESULT</content>
<content>TETRACYCLINE PO 250 mg qid <=1 S</content>
<content>PENICILLIN G IV 1 mu q6h 0.25 R</content>
<content>PENICILLIN G PO 250mg q6h fasting 0.25 R</content>
<content>TRIMETHOPRIM/SULFAMETHOXAZOLE IV 160mg TMP & 800mg SMXq6h <=10 S</content>
<content>TRIMETHOPRIM/SULFAMETHOXAZOLE PO Bactrim DS Bid <=10 S</content>
<content>ERYTHROMYCIN IV 500mg q6h <=0.25 S</content>
<content> ERYTHROMYCIN PO 500mg q6h <=0.25 S</content>
<content>GENTAMICIN IV 80mg q8h <=0.5 S</content>
<content>CLINDAMYCIN IV 600mg q6h <=0.12 S</content>
<content>CLINDAMYCIN PO 150mg q6h <=0.12 S</content>
<content>OXACILLIN IV 500mg q6h <=0.25 S</content>
<content>VANCOMYCIN IV 500mg q8h <=0.5 S</content>
<content>LINEZOLID (ZYVOX) IV 600MG Q12HR 2 S</content>
<content>LINEZOLID (ZYVOX) PO 600MG Q12HR 2 S</content>
<content>An isolate with a (+) POSITIVE ICR test is considered</content>
<content>CLINDAMYCIN RESISTANT; however, clindamycin may still</content>
<content>be effective in some patients.</content>
<content>An isolate with a (-) NEGATIVE ICR test is considered</content>
<content>CLIDAMYCIN SENSITIVE.</content>
<content>Oxacillin result predicts susceptibility to all penicillinase-stable</content>
<content>penicillins (Nafcillin, Dicloxacilin), Cephalosporins, Carbapenems,</content>
<content>Amoxicillin/Clavulanate & Ampicillin/Sulbactam per [facility] standards.</content>
<content></content> ID Date Data Source [id number] 03/31/2021 09:18:00 PM EDT [facility] Name Value Range Interpretation Code Description Data Vianney rce(s) Supporting Document(s) SARS coronavirus 2 RNA [Presence] in Res piratory specimen by TIFFANY with probe detection NEGATIVE [facility] This lab was ordered by [facility] a nd reported by [facility]. ID Date Data Source [id number] 03/21/2021 03:47:00 PM EDT [facility] Name Value Range Interpretation Code Description Data Vianney rce(s) Supporting Document(s) SARS coronavirus 2 RNA [Presence] in Res piratory specimen by TIFFANY with probe detection NEGATIVE [facility] This lab was ordered by [facility] a nd reported by [facility]. Procedure Social History Code Duration Value Status Description Data Source(s ) Smoking 05/02/2021 12:00:00 AM EDT Current Smoker completed Curre nt Smoker eCW1 ([facility]) Smoking 05/02/2021 12:00:00 AM EDT Current Smoker completed Curre nt Smoker eCW1 ([facility]) Smoking 04/15/2021 12:00:00 AM EDT Current Smoker completed Curre nt Smoker eCW1 ([facility]) Smoking 04/08/2021 12:00:00 AM EDT Current Smoker completed Curre nt Smoker eCW1 ([facility]) Smoking 04/08/2021 12:00:00 AM EDT Current Smoker completed Curre nt Smoker eCW1 ([facility]) Smoking 04/08/2021 12:00:00 AM EDT Current Smoker completed Curre nt Smoker eCW1 ([facility]) Smoking 03/31/2021 12:00:00 AM EDT Current Smoker completed Curre nt Smoker eCW1 ([facility]) Smoking 03/31/2021 12:00:00 AM EDT Current Smoker completed Curre nt Smoker eCW1 ([facility]) Smoking 02/25/2021 12:00:00 AM EDT Current Smoker completed Curre nt Smoker eCW1 ([facility]) Smoking 02/25/2021 12:00:00 AM EDT Current Smoker completed Curre nt Smoker eCW1 ([facility]) Smoking 01/15/2021 12:00:00 AM EDT Current Smoker completed Curre nt Smoker eCW1 ([facility]) Smoking 08/27/2020 12:00:00 AM EST Former Smoker completed Former Smoker eCW1 ([facility]) Smoking 08/27/2020 12:00:00 AM EST Former Smoker completed Former Smoker eCW1 ([facility]) Vital Signs ID Date Data Source UNK Name Value Range Interpretation Code Description Data Source(s) Body weight 189 [lb_av] 189 [lb_av] eCW1 ([facility]) Body weight 85.73 kg 85.73 kg W1 ([facility]) Body height 70 [in_i] 70 [in_i] eCW1 ([facility]) Body mass index (BMI) [Ratio] 27.12 kg/m2 27.12 kg/m2 W1 ([facility]) Systolic blood pressure 138 mm[Hg] 138 mm[Hg] e CW1 ([facility]) Diastolic blood pressure 82 mm[Hg] 82 mm[Hg] eCW1 ([facility]) Body height 70 [in_i] 70 [in_i] [facility] 5'10" Body weight 85.277 kg 85.277 kg [facility] ([facility], ) Body weight 188.00 [lb_av] 188.00 [lb_av] MEDEN T ([facility], ) Body mass index (BMI) [Ratio] 27.0 kg/m2 27.0 k g/m2 [facility] [place] body weight 166 [lb_av] 166 [lb_av] MEDEN T ([facility]) Body surface area Derived from formula 2.03 m2 2.03 m2 [facility] ([facility]) Body mass index (BMI) [Ratio] 27.12 kg/m2 27.12 kg/m2 W1 ([facility]) Body weight 189 [lb_av] 189 [lb_av] eCW1 ([facility]) Body weight 85.73 kg 85.73 kg eCW1 ([facility]) Body height 70 [in_i] 70 [in_i] eCW1 ([facility]) Heart rate 87 /min 87 /min eCW1 ([facility]) Respiratory rate 18 /min 18 /min eCW1 ([facility]) Body temperature 97.8 [degF] 97.8 [degF] eCW1 ( [facility]) Systolic blood pressure 116 mm[Hg] 116 mm[Hg] e CW1 ([facility]) Diastolic blood pressure 72 mm[Hg] 72 mm[Hg] eCW1 ([facility]) Body weight 184.00 [lb_av] 184.00 [lb_av] MEDEN T ([facility]) Body mass index (BMI) [Ratio] 26.4 kg/m2 26.4 k g/m2 [facility] ([facility]) [place] body weight 166 [lb_av] 166 [lb_av] MEDEN T ([facility]) Body weight 83.462 kg 83.462 kg [facility] ([facility]) Body height 70 [in_i] 70 [in_i] [facility] ([facility]) 5'10" Body surface area Derived from formula 2.01 m2 2.01 m2 [facility] ([facility]) Body weight 185 [lb_av] 185 [lb_av] eCW1 ([facility]) Body weight 83.92 kg 83.92 kg eCW1 ([facility]) Body height 70 [in_i] 70 [in_i] eCW1 ([facility]) Body mass index (BMI) [Ratio] 26.54 kg/m2 26.54 kg/m2 eCW1 ([facility]) Systolic blood pressure 142 mm[Hg] 142 mm[Hg] e CW1 ([facility]) Diastolic blood pressure 88 mm[Hg] 88 mm[Hg] eCW1 ([facility]) Body weight 188.4 [lb_av] 188.4 [lb_av] eCW1 ([facility]) Body weight 85.46 kg 85.46 kg eCW1 ([facility]) Body height 70 [in_i] 70 [in_i] eCW1 ([facility]) Body mass index (BMI) [Ratio] 27.03 kg/m2 27.03 kg/m2 eCW1 ([facility]) Heart rate 86 /min 86 /min eCW1 ([facility]) Respiratory rate 18 /min 18 /min eCW1 ([facility]) Body temperature 97.4 [degF] 97.4 [degF] eCW1 ( [facility]) Systolic blood pressure 114 mm[Hg] 114 mm[Hg] e CW1 ([facility]) Diastolic blood pressure 72 mm[Hg] 72 mm[Hg] eCW1 ([facility]) Body height 70 [in_i] 70 [in_i] eCW1 ([facility]) Body mass index (BMI) [Ratio] 26.05 kg/m2 26.05 kg/m2 eCW1 ([facility]) Systolic blood pressure 120 mm[Hg] 120 mm[Hg] e CW1 ([facility]) Diastolic blood pressure 76 mm[Hg] 76 mm[Hg] eCW1 ([facility]) Body weight 181.6 [lb_av] 181.6 [lb_av] eCW1 ([facility]) Body weight 82.37 kg 82.37 kg eCW1 ([facility]) Diastolic blood pressure 64 mm[Hg] 64 mm[Hg] eCW1 ([facility]) Body weight 183 [lb_av] 183 [lb_av] eCW1 ([facility]) Body weight 83.01 kg 83.01 kg eCW1 ([facility]) Body height 70 [in_i] 70 [in_i] eCW1 ([facility]) Body mass index (BMI) [Ratio] 26.25 kg/m2 26.25 kg/m2 eCW1 ([facility]) Heart rate 97 /min 97 /min eCW1 ([facility]) Respiratory rate 18 /min 18 /min eCW1 ([facility]) Body temperature 98.3 [degF] 98.3 [degF] eCW1 ( [facility]) Systolic blood pressure 110 mm[Hg] 110 mm[Hg] e CW1 ([facility]) Body weight 181.6 [lb_av] 181.6 [lb_av] eCW1 ([facility]) Body height 70 [in_i] 70 [in_i] eCW1 ([facility]) Body mass index (BMI) [Ratio] 26.05 kg/m2 26.05 kg/m2 eCW1 ([facility]) Systolic blood pressure 116 mm[Hg] 116 mm[Hg] e CW1 ([facility]) Diastolic blood pressure 68 mm[Hg] 68 mm[Hg] eCW1 ([facility]) Body weight 183 [lb_av] 183 [lb_av] eCW1 ([facility]) Body height 70 [in_i] 70 [in_i] eCW1 ([facility]) Body mass index (BMI) [Ratio] 26.25 kg/m2 26.25 kg/m2 eCW1 ([facility]) Heart rate 102 /min 102 /min eCW1 ([facility]) Respiratory rate 18 /min 18 /min eCW1 ([facility]) Body temperature 98.9 [degF] 98.9 [degF] eCW1 ( [facility]) Systolic blood pressure 130 mm[Hg] 130 mm[Hg] e CW1 ([facility]) Diastolic blood pressure 66 mm[Hg] 66 mm[Hg] eCW1 ([facility]) Patient Treatment Plan of Care Planned Activity Planned Date Details Description Data Source (s) Fluoxetine 40 MG Oral Capsule 03/17/2021 12:00:00 AM EDT eCW1 ([facility]) Fluoxetine 20 MG Oral Capsule 03/17/2021 12:00:00 AM EDT eCW1 ([facility]) doxycycline hyclate 100 MG Oral Capsule 01/15/2021 12:00:00 AM EDT eCW1 ([facility]) Amoxicillin 875 MG / Clavulanate 125 MG Oral Tablet 08/27/19 21 12:00:00 AM EST eCW1 ([facility]) Amoxicillin 875 MG / Clavulanate 125 MG Oral Tablet 08/27/19 21 12:00:00 AM EST eCW1 ([facility])
[2021-05-19] MEDS ORDERED: OLAN5ZYD (08:29)
[2021-05-19 08:54] LABS: HEMATOCRIT 50.3 % (42.0-52.0); HEMOGLOBIN 16.8 g/dl (13.5-17.5); MEAN CORPUSCULAR HEMOGLOBIN 30.4 pg (27.0-33.0); MEAN CORPUSCULAR HGB CONC 33.4 g/dl (32.0-36.5); PLATELET COUNT, AUTOMATED 405 10^3/uL (150-450); RED BLOOD COUNT 5.53 10^6/uL (4.30-6.10); WHITE BLOOD COUNT 14.5 10^3/uL (4.0-10.0)
--- OUTSIDE RECORDS SUMMARY | 2021-05-19 08:55 | CCD ---
Author Author [facility] Organization [facility] Address Unknown Phone Unavailable Care Team Providers Care [place] [employer] Name Role Phone Jake Estrella MD Unavailable [...] Unavailable Unavailable Jake Estrella MD Unavailable Unavailable Pennington, Jake MD Unavailable Unavailable Pennington, Jake MD Unavailable Unavailable Pennington, Jake MD Unavailable Unavailable Pennington, Jake MD Unavailable Unavailable Pennington, Jake MD Unavailable Unavailable Pennington, Jake MD Unavailable Unavailable Pennington, Jake MD Unavailable Unavailable Pennington, Jake MD Unavailable Unavailable Pennington, Jake MD Unavailable Unavailable Pennington, Jake MD Unavailable Unavailable Pennington, Jake MD Unavailable Unavailable Pennington, Jake MD Unavailable Unavailable Pennington, Jake MD Unavailable Unavailable Pennington, Jake MD Unavailable Unavailable Pennington, Jake MD Unavailable Unavailable Pennington, Jake MD Unavailable Unavailable Re-disclosure Warning The [...] is protected by Article 27-F of the [facility] Public Health law. If you continue you may have access to information: Regarding HIV / AIDS; Provided by facilities licensed or operated by the [facility] Office of Mental Health; or Provided by the [facility] Office for People With Developmental Disabilities. If such information is present, then the following [facility] mandated warning applies: This information has [...] law may result in a fine or usp sentence or both. A general authorization for the release of medical or other information is NOT sufficient authorization for further disc losure. Family History Family Member Name Family Member Gender Family Member Status Date o f Status Description Data Source(s) Unknown Unknown Problem MEDENT ([facility], ) father Unknown Male Problem MEDENT ([facility] Unknown Female Unknown Unknown Problem MEDENT (Sabino Anand MD, ) Encounters Encounter Providers Location Date Indications Data Source(s ) [place] [address] [facility] [address] 05/13/2021 12:00:00 AM EDT eCW1 ([facility]) [place] [address] [facility] [address] 05/02/2021 12:00:00 AM EDT eCW1 ([facility]) Office Visit Attender: Jake Wilson/Delores/Ron/Reind l 04/15/2021 02:10:00 PM EDT MEDENT ([facility], ) [place] [address] [facility] [address] 04/15/2021 12:00:00 AM EDT eCW1 ([facility]) Outpatient Attender: Jake Wilson/Delores/Ron/Reind l 04/08/2021 01:50:00 PM EDT MEDENT [facility] [place] [address] [facility] [address] 04/08/2021 12:00:00 AM EDT eCW1 ([facility]) [place] [address] [facility] [address] 04/08/2021 12:00:00 AM EDT eCW1 ([facility]) Unknown [address] [facility] [address] 04/04/2021 12:00:00 AM EDT eCW1 ([facility]) [place] [address] [facility] [address] 03/31/2021 12:00:00 AM EDT eCW1 ([facility]) [place] [address] [facility] [address] 03/28/2021 12:00:00 AM EDT eCW1 ([facility]) [place] [address] [facility] [address] 03/17/2021 12:00:00 AM EDT eCW1 ([facility]) [place] [address] [facility] [address] 02/25/2021 12:00:00 AM EDT eCW1 ([facility]) [place] [address] [facility] [address] 01/15/2021 12:00:00 AM EDT eCW1 ([facility]) Unknown [address] [facility] [address] 10/08/2020 12:00:00 AM EDT eCW1 ([facility]) [place] [address] [facility] [place] [address] 08/27/2020 12:00:00 AM EST eCW1 ([facility]) Unknown [address] [facility] [address] 08/12/2020 12:00:00 AM EST eCW1 ([facility]) Medications Medication Brand Name Start Date Product Form Dose Route Admi nistrative Instructions Pharmacy Instructions Status Indications Reaction Description Data Source(s) doxycycline hyclate 100 MG Oral Capsule Doxycycline Hy clate 100 MG Doxycycline Hyclate 100 MG 03/28/2021 12:00:00 AM EDT 1.0 {capsule} active Doxycycline Hyclate 100 MG eCW1 ([facility]) quetiapine 25 MG Oral Tablet [Seroquel] SEROquel 25 MG SEROq uel 25 MG 03/28/2021 12:00:00 AM EDT 1.0 {tablet_at_bedtime} active SEROquel 25 MG eCW1 ([facility]) quetiapine 25 MG Oral Tablet [Seroquel] SEROquel 25 MG SEROq uel 25 MG 03/28/2021 12:00:00 AM EDT 1.0 {tablet_at_bedtime} active SEROquel 25 MG eCW1 ([facility]) doxycycline hyclate 100 MG Oral Capsule Doxycycline Hy clate 100 MG Doxycycline Hyclate 100 MG 03/28/2021 12:00:00 AM EDT 1.0 {capsule} active Doxycycline Hyclate 100 MG eCW1 ([facility]) doxycycline hyclate 100 MG Oral Capsule Doxycycline Hy clate 100 MG Doxycycline Hyclate 100 MG 03/28/2021 12:00:00 AM EDT 1.0 {capsule} active Doxycycline Hyclate 100 MG eCW1 ([facility]) doxycycline hyclate 100 MG Oral Capsule Doxycycline Hy clate 100 MG Doxycycline Hyclate 100 MG 03/28/2021 12:00:00 AM EDT 1.0 {capsule} active Doxycycline Hyclate 100 MG eCW1 ([facility]) quetiapine 25 MG Oral Tablet [Seroquel] SEROquel 25 MG SEROq uel 25 MG 03/28/2021 12:00:00 AM EDT 1.0 {tablet_at_bedtime} active SEROquel 25 MG eCW1 ([facility]) quetiapine 25 MG Oral Tablet [Seroquel] SEROquel 25 MG SEROq uel 25 MG 03/28/2021 12:00:00 AM EDT 1.0 {tablet_at_bedtime} active SEROquel 25 MG eCW1 ([facility]) doxycycline hyclate 100 MG Oral Capsule Doxycycline Hy clate 100 MG Doxycycline Hyclate 100 MG 03/28/2021 12:00:00 AM EDT 1.0 {capsule} active Doxycycline Hyclate 100 MG eCW1 ([facility]) doxycycline hyclate 100 MG Oral Capsule Doxycycline Hy clate 100 MG Doxycycline Hyclate 100 MG 03/28/2021 12:00:00 AM EDT 1.0 {capsule} active Doxycycline Hyclate 100 MG eCW1 ([facility]) doxycycline hyclate 100 MG Oral Capsule Doxycycline Hy clate 100 MG Doxycycline Hyclate 100 MG 03/28/2021 12:00:00 AM EDT 1.0 {capsule} active Doxycycline Hyclate 100 MG eCW1 ([facility]) quetiapine 25 MG Oral Tablet [Seroquel] SEROquel 25 MG SEROq uel 25 MG 03/28/2021 12:00:00 AM EDT 1.0 {tablet_at_bedtime} active SEROquel 25 MG eCW1 ([facility]) doxycycline hyclate 100 MG Oral Capsule Doxycycline Hy clate 100 MG Doxycycline Hyclate 100 MG 03/28/2021 12:00:00 AM EDT 1.0 {capsule} active Doxycycline Hyclate 100 MG eCW1 ([facility]) Fluoxetine 20 MG Oral Capsule FLUoxetine HCl 20 MG FLUoxetin e HCl 20 MG 03/17/2021 12:00:00 AM EDT 1.0 {capsule} active FLUoxetine HCl 20 MG eCW1 ([facility]) Fluoxetine 20 MG Oral Capsule FLUoxetine HCl 20 MG FLUoxetin e HCl 20 MG 03/17/2021 12:00:00 AM EDT 1.0 {capsule} active FLUoxetine HCl 20 MG eCW1 ([facility]) Fluoxetine 40 MG Oral Capsule FLUoxetine HCl 40 MG FLUoxetin e HCl 40 MG 03/17/2021 12:00:00 AM EDT 2.0 {capsule} active FLUoxetine HCl 40 MG eCW1 ([facility]) Fluoxetine 20 MG Oral Capsule FLUoxetine HCl 20 MG FLUoxetin e HCl 20 MG 03/17/2021 12:00:00 AM EDT 1.0 {capsule} active FLUoxetine HCl 20 MG eCW1 ([facility]) Fluoxetine 40 MG Oral Capsule FLUoxetine HCl 40 MG FLUoxetin e HCl 40 MG 03/17/2021 12:00:00 AM EDT 2.0 {capsule} active FLUoxetine HCl 40 MG eCW1 ([facility]) Fluoxetine 20 MG Oral Capsule FLUoxetine HCl 20 MG FLUoxetin e HCl 20 MG 03/17/2021 12:00:00 AM EDT 1.0 {capsule} active FLUoxetine HCl 20 MG eCW1 ([facility]) Fluoxetine 40 MG Oral Capsule FLUoxetine HCl 40 MG FLUoxetin e HCl 40 MG 03/17/2021 12:00:00 AM EDT 2.0 {capsule} active FLUoxetine HCl 40 MG eCW1 ([facility]) Fluoxetine 20 MG Oral Capsule FLUoxetine HCl 20 MG FLUoxetin e HCl 20 MG 03/17/2021 12:00:00 AM EDT 1.0 {capsule} active FLUoxetine HCl 20 MG eCW1 ([facility]) Fluoxetine 20 MG Oral Capsule FLUoxetine HCl 20 MG FLUoxetin e HCl 20 MG 03/17/2021 12:00:00 AM EDT 1.0 {capsule} active FLUoxetine HCl 20 MG eCW1 ([facility]) doxycycline hyclate 100 MG Oral Capsule Doxycycline Hy clate 100 MG Doxycycline Hyclate 100 MG 01/15/2021 12:00:00 AM EDT 1.0 {capsule} active Doxycycline Hyclate 100 MG eCW1 ([facility]) Amoxicillin 875 MG / Clavulanate 125 MG Oral Tablet Amoxicillin-Pot Clavulanate 875-125 MG Amoxicillin-Pot Clavulanate 875-125 MG 08/27/2020 12:00:00 AM ES T 1.0 {tablet} suspended Amoxicillin-Pot C lavulanate 875-125 MG eCW1 ([facility]) Amoxicillin 875 MG / Clavulanate 125 MG Oral Tablet Amoxicillin-Pot Clavulanate 875-125 MG Amoxicillin-Pot Clavulanate 875-125 MG 08/27/2020 12:00:00 AM ES T 1.0 {tablet} active Amoxicillin-Pot Cla vulanate 875-125 MG eCW1 ([facility]) Amoxicillin 875 MG / Clavulanate 125 MG Oral Tablet Amoxicillin-Pot Clavulanate 875-125 MG Amoxicillin-Pot Clavulanate 875-125 MG 08/27/2020 12:00:00 AM ES T 1.0 {tablet} active Amoxicillin-Pot Cla vulanate 875-125 MG eCW1 ([facility]) Insurance Providers Payer name Policy type / Coverage type Policy ID Covered alliance party ID Covered alliance party's relationship to franks Policy Franks Plan Information Managed Care Enrico Miller [id number] S [id number] Managed Care Enrico Miller [id number] S [id number] Medicaid S [id number] S [id number] Medicaid Dental O [id number] S [id number] Medicaid S [id number] S [id number] Medicaid S [id number] S [id number] [facility] Care Enrico Miller [id number] S [id number] [place] Care [facility] Commercial [id number] Self [id number] Medicaid S [id number] S [id number] Medicaid S [id number] S [id number] ANSI-Commercial [id number] ANSI-Medicaid [id number] ANSI-Commercial [id number] ANSI-Medicaid [id number] ANSI-Commercial [id number] ANS-Medicaid [id number] ENRICO [id number] SP [id number] 100 D Managed Care [place] O [id number] S [id number] Managed Care Enrico P [id number] S [id number] [place] Care [place] [id number] Self [id number] [place] Care [place] [id number] Self [id number] [place] [facility] (O) [id number] Self 7 [id number] ENRICO [id number] SP [id number] MEDICAID [id number] SP [id number] SELF PAY ONLY [id number] SP [id number] [facility] [id number] SP [id number] [place] Medicaid/CHP/FHP Commercial [id number] Self [place] [facility] Commercial [id number] Self BC [employer]OSS [id number] SP [id number] BC [employer]OSS [id number] SP [id number] ENRICO [id number] SP [id number] 100 [place] [id number] S [id number] ANSI-Commercial [id number] ANSI-Medicaid [id number] ANSI-Medicaid [id number] ANSI-Commercial [id number] ANSI-Medicaid [id number] ANSI-Commercial [id number] Problems, Conditions, and Diagnoses Code Display Name Description Problem Type Effective Dates Data Source(s) K80.20 Cholelithiasis without obstruction Calculus of gallbla dder Problem 03/17/2021 12:00:00 AM EDT eCW1 ([facility]) L72.9 [id number] Cyst of skin Problem 01/15/2021 12:00:00 AM EDT eCW1 ([facility]) E78.5 Hyperlipidemia Hyperlipidemia Problem 08/27/2020 12:00: 00 AM EST eCW1 ([facility]) Surgeries/Procedures Procedure Description Date Indications Data Source(s) Suture Removal 05/13/2021 12:00:00 AM EDT eCW1 ([facility]) I & D Abscess Simple 04/08/2021 12:00:00 AM EDT MEDENT ([facility]) OFFICE OUTPATIENT NEW 30 MINUTES 04/08/2021 12:00:00 A M EDT MEDENT ([facility]) Injection, triamcinolone acetonide, not otherwise specified , 10 mg 01/15/2021 12:00:00 AM EDT eCW1 ([facility]) Results ID Date Data Source [id number] 04/08/2021 03:17:00 PM EDT MEDENT ([facility]) Name Value Range Interpretation Code Description Data Vianney rce(s) Supporting Document(s) Gram Stain Laboratory test result Normal (applies to non-n umeric results) MEDENT ([facility]) FEW WBCS NO ORGANISMS SEEN Abscess Culture Laboratory test result Normal (a pplies to non-numeric results) MEDENT ([facility]) <content>FULL REPORT IN LAB NOTES (eCW a [...] CSLI standards.</content>
<content></content> ID Date Data Source [id number] 03/31/2021 09:18:00 PM EDT [facility] Name Value Range Interpretation Code Description Data Vianney rce(s) Supporting Document(s) SARS coronavirus 2 RNA [Presence] in Res piratory specimen by TIFFANY with probe detection NEGATIVE [facility] This lab was ordered by [facility] a nd reported by [facility]. ID Date Data Source [id number] 03/21/2021 03:47:00 PM EDT [facility] Name Value Range Interpretation Code Description Data Vianney rce(s) Supporting Document(s) SARS coronavirus 2 RNA [Presence] in Res piratory specimen by TIFFANY with probe detection NEGATIVE [facility] This lab was ordered by [facility] a nd reported by [facility]. Procedure Social History Code Duration Value Status Description Data Source(s ) Smoking 05/02/2021 12:00:00 AM EDT Current Smoker completed Curre nt Smoker eCW1 ([facility]) Smoking 05/02/2021 12:00:00 AM EDT Current Smoker completed Curre nt Smoker eCW1 ([facility]) Smoking 04/15/2021 12:00:00 AM EDT Current Smoker completed Curre nt Smoker eCW1 ([facility]) Smoking 04/08/2021 12:00:00 AM EDT Current Smoker completed Curre nt Smoker eCW1 ([facility]) Smoking 04/08/2021 12:00:00 AM EDT Current Smoker completed Curre nt Smoker eCW1 ([facility]) Smoking 04/08/2021 12:00:00 AM EDT Current Smoker completed Curre nt Smoker eCW1 ([facility]) Smoking 03/31/2021 12:00:00 AM EDT Current Smoker completed Curre nt Smoker eCW1 ([facility]) Smoking 03/31/2021 12:00:00 AM EDT Current Smoker completed Curre nt Smoker eCW1 ([facility]) Smoking 02/25/2021 12:00:00 AM EDT Current Smoker completed Curre nt Smoker eCW1 ([facility]) Smoking 02/25/2021 12:00:00 AM EDT Current Smoker completed Curre nt Smoker eCW1 ([facility]) Smoking 01/15/2021 12:00:00 AM EDT Current Smoker completed Curre nt Smoker eCW1 ([facility]) Smoking 08/27/2020 12:00:00 AM EST Former Smoker completed Former Smoker eCW1 ([facility]) Smoking 08/27/2020 12:00:00 AM EST Former Smoker completed Former Smoker eCW1 ([facility]) Vital Signs ID Date Data Source UNK Name Value Range Interpretation Code Description Data Source(s) Body weight 189 [lb_av] 189 [lb_av] eCW1 ([facility]) Body weight 85.73 kg 85.73 kg W1 ([facility]) Body height 70 [in_i] 70 [in_i] W1 ([facility]) Body mass index (BMI) [Ratio] 27.12 kg/m2 27.12 kg/m2 W1 ([facility]) Systolic blood pressure 138 mm[Hg] 138 mm[Hg] e CW1 ([facility]) Diastolic blood pressure 82 mm[Hg] 82 mm[Hg] eCW1 ([facility]) Body weight 85.277 kg 85.277 kg MEDENT ([facility], ) Body height 70 [in_i] 70 [in_i] MEDENT ([facility], ) 5'10" Body weight 188.00 [lb_av] 188.00 [lb_av] MEDEN T ([facility], ) Body mass index (BMI) [Ratio] 27.0 kg/m2 27.0 k g/m2 MEDENT ([facility], ) [place] body weight 166 [lb_av] 166 [lb_av] MEDEN T ([facility]) Body surface area Derived from formula 2.03 m2 2.03 m2 [facility] Body mass index (BMI) [Ratio] 27.12 kg/m2 27.12 kg/m2 W1 ([facility]) Body weight 189 [lb_av] 189 [lb_av] eCW1 ([facility]) Body weight 85.73 kg 85.73 kg eCW1 ([facility]) Body height 70 [in_i] 70 [in_i] eCW1 ([facility]) Heart rate 87 /min 87 /min eCW1 ([facility]) Respiratory rate 18 /min 18 /min eCW1 ([facility]) Body temperature 97.8 [degF] 97.8 [degF] eCW1 ( [facility]) Systolic blood pressure 116 mm[Hg] 116 mm[Hg] e CW1 ([facility]) Diastolic blood pressure 72 mm[Hg] 72 mm[Hg] eCW1 ([facility]) Body mass index (BMI) [Ratio] 26.4 kg/m2 26.4 k g/m2 [facility] ([facility], ) Body weight 184.00 [lb_av] 184.00 [lb_av] MEDEN T ([facility]) [place] body weight 166 [lb_av] 166 [lb_av] MEDEN T ([facility]) Body height 70 [in_i] 70 [in_i] [facility] ([facility]) 5'10" Body weight 83.[address] [facility] ([facility]) Body surface area Derived from formula 2.[address] [facility] ([facility]) Body weight 185 [lb_av] 185 [lb_av] eCW1 ([facility]) Body weight 83.92 kg 83.92 kg eCW1 ([facility]) Body height 70 [in_i] 70 [in_i] eCW1 ([facility]) Body mass index (BMI) [Ratio] 26.54 kg/m2 26.54 kg/m2 eCW1 ([facility]) Systolic blood pressure 142 mm[Hg] 142 mm[Hg] e CW1 ([facility]) Diastolic blood pressure 88 mm[Hg] 88 mm[Hg] eCW1 ([facility]) Body weight 188.4 [lb_av] 188.4 [lb_av] eCW1 ([facility]) Body weight 85.46 kg 85.46 kg eCW1 ([facility]) Body height 70 [in_i] 70 [in_i] eCW1 ([facility]) Heart rate 86 /min 86 /min eCW1 ([facility]) Respiratory rate 18 /min 18 /min eCW1 ([facility]) Body temperature 97.4 [degF] 97.4 [degF] eCW1 ( [facility]) Body mass index (BMI) [Ratio] 27.03 kg/m2 27.03 kg/m2 eCW1 ([facility]) Systolic blood pressure 114 mm[Hg] 114 mm[Hg] e CW1 ([facility]) Diastolic blood pressure 72 mm[Hg] 72 mm[Hg] eCW1 ([facility]) Body height 70 [in_i] 70 [in_i] eCW1 ([facility]) Body mass index (BMI) [Ratio] 26.05 kg/m2 26.05 kg/m2 eCW1 ([facility]) Systolic blood pressure 120 mm[Hg] 120 mm[Hg] e CW1 ([facility]) Diastolic blood pressure 76 mm[Hg] 76 mm[Hg] eCW1 ([facility]) Body weight 181.6 [lb_av] 181.6 [lb_av] eCW1 ([facility]) Body weight 82.37 kg 82.37 kg eCW1 ([facility]) Body weight 183 [lb_av] 183 [lb_av] eCW1 ([facility]) Diastolic blood pressure 64 mm[Hg] 64 mm[Hg] eCW1 ([facility]) Body weight 83.01 kg 83.01 kg eCW1 ([facility]) Body height 70 [in_i] 70 [in_i] eCW1 ([facility]) Body mass index (BMI) [Ratio] 26.25 kg/m2 26.25 kg/m2 eCW1 ([facility]) Heart rate 97 /min 97 /min eCW1 ([facility]) Respiratory rate 18 /min 18 /min eCW1 ([facility]) Body temperature 98.3 [degF] 98.3 [degF] eCW1 ( [facility]) Systolic blood pressure 110 mm[Hg] 110 mm[Hg] e CW1 ([facility]) Body weight 181.6 [lb_av] 181.6 [lb_av] eCW1 ([facility]) Body height 70 [in_i] 70 [in_i] eCW1 ([facility]) Body mass index (BMI) [Ratio] 26.05 kg/m2 26.05 kg/m2 eCW1 ([facility]) Systolic blood pressure 116 mm[Hg] 116 mm[Hg] e CW1 ([facility]) Diastolic blood pressure 68 mm[Hg] 68 mm[Hg] eCW1 ([facility]) Body weight 183 [lb_av] 183 [lb_av] eCW1 ([facility]) Body height 70 [in_i] 70 [in_i] eCW1 ([facility]) Body mass index (BMI) [Ratio] 26.25 kg/m2 26.25 kg/m2 eCW1 ([facility]) Heart rate 102 /min 102 /min eCW1 ([facility]) Respiratory rate 18 /min 18 /min eCW1 ([facility]) Body temperature 98.9 [degF] 98.9 [degF] eCW1 ( [facility]) Systolic blood pressure 130 mm[Hg] 130 mm[Hg] e CW1 ([facility]) Diastolic blood pressure 66 mm[Hg] 66 mm[Hg] eCW1 ([facility]) Patient Treatment Plan of Care Planned Activity Planned Date Details Description Data Source (s) Fluoxetine 40 MG Oral Capsule 03/17/2021 12:00:00 AM EDT eCW1 ([facility]) Fluoxetine 20 MG Oral Capsule 03/17/2021 12:00:00 AM EDT eCW1 ([facility]) doxycycline hyclate 100 MG Oral Capsule 01/15/2021 12:00:00 AM EDT eCW1 ([facility]) Amoxicillin 875 MG / Clavulanate 125 MG Oral Tablet 08/27/19 21 12:00:00 AM EST eCW1 ([facility]) Amoxicillin 875 MG / Clavulanate 125 MG Oral Tablet 08/27/19 21 12:00:00 AM EST eCW1 ([facility])
[2021-05-19 09:25] LABS: AMPHETAMINES LEVEL URINE NEGATIVE (NEGATIVE); BARBITURATES URINE NEGATIVE (NEGATIVE); BENZODIAZEPINES URINE NEGATIVE (NEGATIVE); CANNABINOIDS URINE POSITIVE (NEGATIVE); COCAINE METABOLITE URINE NEGATIVE (NEGATIVE); METHADONE URINE NEGATIVE (NEGATIVE); OPIATES URINE NEGATIVE (NEGATIVE); PHENCYCLIDINE URINE NEGATIVE (NEGATIVE)
[2021-05-19 09:31] LABS: ACETAMINOPHEN LEVEL < 2.0 UG/ML (10.0-30.0); ALBUMIN 4.6 GM/DL (3.2-5.2); ALT/SGPT 27 U/L (12-78); BILIRUBIN,DIRECT 0.3 MG/DL (0.0-0.2); BILIRUBIN,TOTAL 0.9 MG/DL (0.2-1.0); BLOOD UREA NITROGEN 18 MG/DL (7-18); CALCIUM LEVEL 10.1 MG/DL (8.5-10.1); CARBON DIOXIDE LEVEL 27 MEQ/L (21-32); CHLORIDE LEVEL 107 MEQ/L (98-107); ETHYL ALCOHOL (ETHANOL) < 0.003 % (0.000-0.010); GLOMERULAR FILTRATION RATE > 60.0 (>60); GLUCOSE, FASTING 105 MG/DL (70-100); POTASSIUM SERUM 4.5 MEQ/L (3.5-5.1); SALICYLATE LEVEL < 1.7 MG/DL (5.0-30.0); SODIUM LEVEL 143 MEQ/L (136-145)
[2021-05-19] MEDS ORDERED: TRAZ-257 PO (14:09)
[2021-05-19] MEDS ORDERED: FLUO40CA PO (14:09)
[2021-05-19] MEDS ORDERED: HOME MED LIST COMPLETE! XX SCH (14:10)
[2021-05-19] MEDS ORDERED: hydrOXYzine 25 MG TAB PO ONE (14:20)
[2021-05-19 16:59] LABS: RSV AMPLIFICATION NEGATIVE (NEGATIVE)
[2021-05-19] MEDS ORDERED: MAALOX 30 ML SUSP *UDC PO PRN (22:10)
[2021-05-19] MEDS ORDERED: MOM 30ML SUSPENSION UDC PO PRN (22:10)
[2021-05-19] MEDS ORDERED: ACETAMINOPHEN TAB 650MG DOSE (2X325MG) PO PRN (22:10)
--- OUTSIDE RECORDS SUMMARY | 2021-05-19 22:29 | CCD ---
Author Author [facility] Organization [facility] Address Unknown Phone Unavailable Care Team Providers Care Cellars Supervisor Name Role Phone Jake Estrella MD Unavailable [...] Unavailable Unavailable Jake Estrella MD Unavailable Unavailable [place], Jake MD Unavailable Unavailable [place], Jake MD Unavailable Unavailable [place], Jake MD Unavailable Unavailable [place], Jake MD Unavailable Unavailable [place], Jake MD Unavailable Unavailable [place], Jake MD Unavailable Unavailable [place], Jake MD Unavailable Unavailable [place], Jake MD Unavailable Unavailable [place], Jake MD Unavailable Unavailable [place], Jake MD Unavailable Unavailable [place], Jake MD Unavailable Unavailable [place], Jake MD Unavailable Unavailable [place], Jake MD Unavailable Unavailable [place], Jake MD Unavailable Unavailable [place], Jake MD Unavailable Unavailable [place], Jake MD Unavailable Unavailable Re-disclosure Warning The [...] is protected by Article 27-F of the [facility] Public Health law. If you continue you may have access to information: Regarding HIV / AIDS; Provided by facilities licensed or operated by the [facility] Office of Mental Health; or Provided by the [facility] Office for People With Developmental Disabilities. If such information is present, then the following [facility] mandated warning applies: This information has [...] law may result in a fine or prison sentence or both. A general authorization for the release of medical or other information is NOT sufficient authorization for further disc losure. Family History Family Member Name Family Member Gender Family Member Status Date o f Status Description Data Source(s) Unknown Unknown Problem MEDENT ([facility], ) father Unknown Male Problem MEDENT ([facility] Unknown Female Unknown Unknown Problem MEDENT (Sabino Anand [facility], ) Encounters Encounter Providers Location Date Indications Data Source(s ) [place] [address] [address] 05/13/2021 12:00:00 AM EDT eCW1 ([facility]) [place] [address] [address] 05/02/2021 12:00:00 AM EDT eCW1 ([facility]) Office Visit Attender: Jake Wilson/Delores/Ron/Reind l 04/15/2021 02:10:00 PM EDT MEDENT ([facility], ) [place] [address] [address] 04/15/2021 12:00:00 AM EDT eCW1 ([facility]) Outpatient Attender: Jake Wilson/Delores/Ron/Reind l 04/08/2021 01:50:00 PM EDT MEDENT ([facility] [place] [address] [address] 04/08/2021 12:00:00 AM EDT eCW1 ([facility]) [place] [address] [address] 04/08/2021 12:00:00 AM EDT eCW1 ([facility]) Unknown [address] [address] 04/04/2021 12:00:00 AM EDT eCW1 ([facility]) [place] [address] [address] 03/31/2021 12:00:00 AM EDT eCW1 ([facility]) [place] [address] [address] 03/28/2021 12:00:00 AM EDT eCW1 ([facility]) [place] [address] [address] 03/17/2021 12:00:00 AM EDT eCW1 ([facility]) [place] [address] [address] 02/25/2021 12:00:00 AM EDT eCW1 ([facility]) [place] [address] [address] 01/15/2021 12:00:00 AM EDT eCW1 ([facility]) Unknown [address] [address] 10/08/2020 12:00:00 AM EDT eCW1 ([facility]) [place] [address] [facility] [place] [address] 08/27/2020 12:00:00 AM EST eCW1 ([facility]) Unknown [address] [address] 08/12/2020 12:00:00 AM EST eCW1 ([facility]) Medications Medication Brand Name Start Date Product Form Dose Route Admi nistrative Instructions Pharmacy Instructions Status Indications Reaction Description Data Source(s) doxycycline hyclate 100 MG Oral Capsule Doxycycline Hy clate 100 MG Doxycycline Hyclate 100 MG 03/28/2021 12:00:00 AM EDT 1.0 {capsule} active Doxycycline Hyclate 100 MG eCW1 ([facility]) quetiapine 25 MG Oral Tablet [Seroquel] SEROquel 25 MG SEROq uel 25 MG 03/28/2021 12:00:00 AM EDT 1.0 {tablet_at_bedtime} active SEROquel 25 MG eCW1 ([facility]) quetiapine 25 MG Oral Tablet [Seroquel] SEROquel 25 MG SEROq uel 25 MG 03/28/2021 12:00:00 AM EDT 1.0 {tablet_at_bedtime} active SEROquel 25 MG eCW1 ([facility]) doxycycline hyclate 100 MG Oral Capsule Doxycycline Hy clate 100 MG Doxycycline Hyclate 100 MG 03/28/2021 12:00:00 AM EDT 1.0 {capsule} active Doxycycline Hyclate 100 MG eCW1 ([facility]) doxycycline hyclate 100 MG Oral Capsule Doxycycline Hy clate 100 MG Doxycycline Hyclate 100 MG 03/28/2021 12:00:00 AM EDT 1.0 {capsule} active Doxycycline Hyclate 100 MG eCW1 ([facility]) doxycycline hyclate 100 MG Oral Capsule Doxycycline Hy clate 100 MG Doxycycline Hyclate 100 MG 03/28/2021 12:00:00 AM EDT 1.0 {capsule} active Doxycycline Hyclate 100 MG eCW1 ([facility]) quetiapine 25 MG Oral Tablet [Seroquel] SEROquel 25 MG SEROq uel 25 MG 03/28/2021 12:00:00 AM EDT 1.0 {tablet_at_bedtime} active SEROquel 25 MG eCW1 ([facility]) quetiapine 25 MG Oral Tablet [Seroquel] SEROquel 25 MG SEROq uel 25 MG 03/28/2021 12:00:00 AM EDT 1.0 {tablet_at_bedtime} active SEROquel 25 MG eCW1 ([facility]) doxycycline hyclate 100 MG Oral Capsule Doxycycline Hy clate 100 MG Doxycycline Hyclate 100 MG 03/28/2021 12:00:00 AM EDT 1.0 {capsule} active Doxycycline Hyclate 100 MG eCW1 ([facility]) doxycycline hyclate 100 MG Oral Capsule Doxycycline Hy clate 100 MG Doxycycline Hyclate 100 MG 03/28/2021 12:00:00 AM EDT 1.0 {capsule} active Doxycycline Hyclate 100 MG eCW1 ([facility]) doxycycline hyclate 100 MG Oral Capsule Doxycycline Hy clate 100 MG Doxycycline Hyclate 100 MG 03/28/2021 12:00:00 AM EDT 1.0 {capsule} active Doxycycline Hyclate 100 MG eCW1 ([facility]) quetiapine 25 MG Oral Tablet [Seroquel] SEROquel 25 MG SEROq uel 25 MG 03/28/2021 12:00:00 AM EDT 1.0 {tablet_at_bedtime} active SEROquel 25 MG eCW1 ([facility]) doxycycline hyclate 100 MG Oral Capsule Doxycycline Hy clate 100 MG Doxycycline Hyclate 100 MG 03/28/2021 12:00:00 AM EDT 1.0 {capsule} active Doxycycline Hyclate 100 MG eCW1 ([facility]) Fluoxetine 20 MG Oral Capsule FLUoxetine HCl 20 MG FLUoxetin e HCl 20 MG 03/17/2021 12:00:00 AM EDT 1.0 {capsule} active FLUoxetine HCl 20 MG eCW1 ([facility]) Fluoxetine 20 MG Oral Capsule FLUoxetine HCl 20 MG FLUoxetin e HCl 20 MG 03/17/2021 12:00:00 AM EDT 1.0 {capsule} active FLUoxetine HCl 20 MG eCW1 ([facility]) Fluoxetine 40 MG Oral Capsule FLUoxetine HCl 40 MG FLUoxetin e HCl 40 MG 03/17/2021 12:00:00 AM EDT 2.0 {capsule} active FLUoxetine HCl 40 MG eCW1 ([facility]) Fluoxetine 20 MG Oral Capsule FLUoxetine HCl 20 MG FLUoxetin e HCl 20 MG 03/17/2021 12:00:00 AM EDT 1.0 {capsule} active FLUoxetine HCl 20 MG eCW1 ([facility]) Fluoxetine 40 MG Oral Capsule FLUoxetine HCl 40 MG FLUoxetin e HCl 40 MG 03/17/2021 12:00:00 AM EDT 2.0 {capsule} active FLUoxetine HCl 40 MG eCW1 ([facility]) Fluoxetine 20 MG Oral Capsule FLUoxetine HCl 20 MG FLUoxetin e HCl 20 MG 03/17/2021 12:00:00 AM EDT 1.0 {capsule} active FLUoxetine HCl 20 MG eCW1 ([facility]) Fluoxetine 40 MG Oral Capsule FLUoxetine HCl 40 MG FLUoxetin e HCl 40 MG 03/17/2021 12:00:00 AM EDT 2.0 {capsule} active FLUoxetine HCl 40 MG eCW1 ([facility]) Fluoxetine 20 MG Oral Capsule FLUoxetine HCl 20 MG FLUoxetin e HCl 20 MG 03/17/2021 12:00:00 AM EDT 1.0 {capsule} active FLUoxetine HCl 20 MG eCW1 ([facility]) Fluoxetine 20 MG Oral Capsule FLUoxetine HCl 20 MG FLUoxetin e HCl 20 MG 03/17/2021 12:00:00 AM EDT 1.0 {capsule} active FLUoxetine HCl 20 MG eCW1 ([facility]) doxycycline hyclate 100 MG Oral Capsule Doxycycline Hy clate 100 MG Doxycycline Hyclate 100 MG 01/15/2021 12:00:00 AM EDT 1.0 {capsule} active Doxycycline Hyclate 100 MG eCW1 ([facility]) Amoxicillin 875 MG / Clavulanate 125 MG Oral Tablet Amoxicillin-Pot Clavulanate 875-125 MG Amoxicillin-Pot Clavulanate 875-125 MG 08/27/2020 12:00:00 AM ES T 1.0 {tablet} suspended Amoxicillin-Pot C lavulanate 875-125 MG eCW1 ([facility]) Amoxicillin 875 MG / Clavulanate 125 MG Oral Tablet Amoxicillin-Pot Clavulanate 875-125 MG Amoxicillin-Pot Clavulanate 875-125 MG 08/27/2020 12:00:00 AM ES T 1.0 {tablet} active Amoxicillin-Pot Cla vulanate 875-125 MG eCW1 ([facility]) Amoxicillin 875 MG / Clavulanate 125 MG Oral Tablet Amoxicillin-Pot Clavulanate 875-125 MG Amoxicillin-Pot Clavulanate 875-125 MG 08/27/2020 12:00:00 AM ES T 1.0 {tablet} active Amoxicillin-Pot Cla vulanate 875-125 MG eCW1 ([facility]) Insurance Providers Payer name Policy type / Coverage type Policy ID Covered republican ID Covered republican's relationship to franks Policy Franks Plan Information Managed Care Enrico Miller [id number] S [id number] Managed Care Enrico Miller [id number] S [id number] Medicaid S [id number] S [id number] Medicaid Dental O [id number] S [id number] Medicaid S [id number] S [id number] Medicaid S [id number] S [id number] [facility] Care Enrico Miller [id number] S [id number] [place] [facility] Commercial [id number] Self [id number] Medicaid S [id number] S [id number] Medicaid S [id number] S [id number] ANSI-Commercial [id number] ANSI-Medicaid [id number] ANSI-Commercial [id number] ANSI-Medicaid [id number] ANSI-Commercial [id number] ANS-Medicaid [id number] [place] [id number] SP [id number] 100 D Managed Care [place] O [id number] S [id number] Managed Care [place] P [id number] S [id number] [place] Care [place] Medicaid [id number] Self [id number] [place] [facility] [place] [id number] Self [id number] [place] [facility] Maintenance Organization (O) [id number] Self 7 [id number] [place] [id number] SP [id number] MEDICAID [id number] SP [id number] SELF PAY ONLY [id number] SP [id number] [facility] [id number] SP [id number] [place] Medicaid/CHP/FHP Commercial [id number] Self [place] [facility] Commercial [id number] Self BC [employer] [employer]OSS [id number] SP [id number] BC [employer] [employer]OSS 361 [id number] SP [id number] [place] [id number] SP [id number] [place] [id number] S [id number] ANSI-Commercial [id number] ANSI-Medicaid [id number] ANSI-Medicaid [id number] ANSI-Commercial [id number] ANSI-Medicaid [id number] ANSI-Commercial [id number] Problems, Conditions, and Diagnoses Code Display Name Description Problem Type Effective Dates Data Source(s) K80.20 Cholelithiasis without obstruction Calculus of gallbla dder Problem 03/17/2021 12:00:00 AM EDT eCW1 ([facility]) L72.9 [id number] Cyst of skin Problem 01/15/2021 12:00:00 AM EDT eCW1 ([facility]) E78.5 Hyperlipidemia Hyperlipidemia Problem 08/27/2020 12:00: 00 AM EST eCW1 ([facility]) Surgeries/Procedures Procedure Description Date Indications Data Source(s) Suture Removal 05/13/2021 12:00:00 AM EDT eCW1 ([facility]) I & D Abscess Simple 04/08/2021 12:00:00 AM EDT MEDENT ([facility]) OFFICE OUTPATIENT NEW 30 MINUTES 04/08/2021 12:00:00 A M EDT MEDENT ([facility]) Injection, triamcinolone acetonide, not otherwise specified , 10 mg 01/15/2021 12:00:00 AM EDT eCW1 ([facility]) Results ID Date Data Source [id number] 04/08/2021 03:17:00 PM EDT MEDENT ([facility]) Name Value Range Interpretation Code Description Data Vianney rce(s) Supporting Document(s) Gram Stain Laboratory test result Normal (applies to non-n umeric results) MEDENT ([facility]) FEW WBCS NO ORGANISMS SEEN Abscess Culture Laboratory test result Normal (a pplies to non-numeric results) MEDENT ([facility]) <content>FULL REPORT IN LAB NOTES (eCW a [...] CSLI standards.</content>
<content></content> ID Date Data Source [id number] 03/31/2021 09:18:00 PM EDT [facility] Name Value Range Interpretation Code Description Data Vianney rce(s) Supporting Document(s) SARS coronavirus 2 RNA [Presence] in Res piratory specimen by TIFFANY with probe detection NEGATIVE [facility] This lab was ordered by [facility] a nd reported by [facility]. ID Date Data Source [id number] 03/21/2021 03:47:00 PM EDT [facility] Name Value Range Interpretation Code Description Data Vianney rce(s) Supporting Document(s) SARS coronavirus 2 RNA [Presence] in Res piratory specimen by TIFFANY with probe detection NEGATIVE [facility] This lab was ordered by [facility] a nd reported by [facility]. Procedure Social History Code Duration Value Status Description Data Source(s ) Smoking 05/02/2021 12:00:00 AM EDT Current Smoker completed Curre nt Smoker eCW1 ([facility]) Smoking 05/02/2021 12:00:00 AM EDT Current Smoker completed Curre nt Smoker eCW1 ([facility]) Smoking 04/15/2021 12:00:00 AM EDT Current Smoker completed Curre nt Smoker eCW1 ([facility]) Smoking 04/08/2021 12:00:00 AM EDT Current Smoker completed Curre nt Smoker eCW1 ([facility]) Smoking 04/08/2021 12:00:00 AM EDT Current Smoker completed Curre nt Smoker eCW1 ([facility]) Smoking 04/08/2021 12:00:00 AM EDT Current Smoker completed Curre nt Smoker eCW1 ([facility]) Smoking 03/31/2021 12:00:00 AM EDT Current Smoker completed Curre nt Smoker eCW1 ([facility]) Smoking 03/31/2021 12:00:00 AM EDT Current Smoker completed Curre nt Smoker eCW1 ([facility]) Smoking 02/25/2021 12:00:00 AM EDT Current Smoker completed Curre nt Smoker eCW1 ([facility]) Smoking 02/25/2021 12:00:00 AM EDT Current Smoker completed Curre nt Smoker eCW1 ([facility]) Smoking 01/15/2021 12:00:00 AM EDT Current Smoker completed Curre nt Smoker eCW1 ([facility]) Smoking 08/27/2020 12:00:00 AM EST Former Smoker completed Former Smoker eCW1 ([facility]) Smoking 08/27/2020 12:00:00 AM EST Former Smoker completed Former Smoker eCW1 ([facility]) Vital Signs ID Date Data Source [id number] Name Value Range Interpretation Code Description Data Source(s) Body weight 189 [lb_av] 189 [lb_av] eCW1 ([facility]) Body weight 85.73 kg 85.73 kg W1 ([facility]) Body height 70 [in_i] 70 [in_i] W1 ([facility]) Body mass index (BMI) [Ratio] 27.12 kg/m2 27.12 kg/m2 W1 ([facility]) Systolic blood pressure 138 mm[Hg] 138 mm[Hg] e CW1 ([facility]) Diastolic blood pressure 82 mm[Hg] 82 mm[Hg] eCW1 ([facility]) Body weight 85.277 kg 85.277 kg MEDENT ([facility], ) Body height 70 [in_i] 70 [in_i] MEDENT ([facility], ) 5'10" Body weight 188.00 [lb_av] 188.00 [lb_av] MEDEN T ([facility], ) Body mass index (BMI) [Ratio] 27.0 kg/m2 27.0 k g/m2 MEDENT ([facility], ) Apex body weight 166 [lb_av] 166 [lb_av] MEDEN T ([facility]) Body surface area Derived from formula 2.03 m2 2.03 m2 [facility] ([facility]) Body mass index (BMI) [Ratio] 27.12 kg/m2 27.12 kg/m2 W1 ([facility]) Body weight 189 [lb_av] 189 [lb_av] eCW1 ([facility]) Body weight 85.73 kg 85.73 kg eCW1 ([facility]) Body height 70 [in_i] 70 [in_i] eCW1 ([facility]) Heart rate 87 /min 87 /min eCW1 ([facility]) Respiratory rate 18 /min 18 /min eCW1 [facility] Body temperature 97.8 [degF] 97.8 [degF] eCW1 ( [facility]) Systolic blood pressure 116 mm[Hg] 116 mm[Hg] e CW1 ([facility]) Diastolic blood pressure 72 mm[Hg] 72 mm[Hg] eCW1 ([facility]) Body weight 184.00 [lb_av] 184.00 [lb_av] MEDEN T ([facility]) Body mass index (BMI) [Ratio] 26.4 kg/m2 26.4 k g/m2 [facility] ([facility]) [place] body weight 166 [lb_av] 166 [lb_av] MEDEN T ([facility]) Body weight 83.462 kg 83.462 kg [facility] ([facility]) Body height 70 [in_i] 70 [in_i] [facility] ([facility]) 5'10" Body surface area Derived from formula 2.01 m2 2.01 m2 [facility] ([facility]) Body weight 185 [lb_av] 185 [lb_av] eCW1 ([facility]) Body weight 83.92 kg 83.92 kg eCW1 ([facility]) Body height 70 [in_i] 70 [in_i] eCW1 ([facility]) Body mass index (BMI) [Ratio] 26.54 kg/m2 26.54 kg/m2 eCW1 ([facility]) Systolic blood pressure 142 mm[Hg] 142 mm[Hg] e CW1 ([facility]) Diastolic blood pressure 88 mm[Hg] 88 mm[Hg] eCW1 ([facility]) Body weight 188.4 [lb_av] 188.4 [lb_av] eCW1 ([facility]) Body weight 85.46 kg 85.46 kg eCW1 ([facility]) Body height 70 [in_i] 70 [in_i] eCW1 ([facility]) Heart rate 86 /min 86 /min eCW1 ([facility]) Body mass index (BMI) [Ratio] 27.03 kg/m2 27.03 kg/m2 eCW1 ([facility]) Respiratory rate 18 /min 18 /min eCW1 ([facility]) Body temperature 97.4 [degF] 97.4 [degF] eCW1 ( [facility]) Systolic blood pressure 114 mm[Hg] 114 mm[Hg] e CW1 ([facility]) Diastolic blood pressure 72 mm[Hg] 72 mm[Hg] eCW1 ([facility]) Body height 70 [in_i] 70 [in_i] eCW1 ([facility]) Systolic blood pressure 120 mm[Hg] 120 mm[Hg] e CW1 ([facility]) Body weight 181.6 [lb_av] 181.6 [lb_av] eCW1 ([facility]) Body mass index (BMI) [Ratio] 26.05 kg/m2 26.05 kg/m2 eCW1 ([facility]) Diastolic blood pressure 76 mm[Hg] 76 mm[Hg] eCW1 ([facility]) Body weight 82.37 kg 82.37 kg eCW1 ([facility]) Body weight 183 [lb_av] 183 [lb_av] eCW1 ([facility]) Body weight 83.01 kg 83.01 kg eCW1 ([facility]) Body height 70 [in_i] 70 [in_i] eCW1 ([facility]) Body mass index (BMI) [Ratio] 26.25 kg/m2 26.25 kg/m2 eCW1 ([facility]) Heart rate 97 /min 97 /min eCW1 ([facility]) Respiratory rate 18 /min 18 /min eCW1 ([facility]) Body temperature 98.3 [degF] 98.3 [degF] eCW1 ( [facility]) Systolic blood pressure 110 mm[Hg] 110 mm[Hg] e CW1 ([facility]) Diastolic blood pressure 64 mm[Hg] 64 mm[Hg] eCW1 ([facility]) Body weight 181.6 [lb_av] 181.6 [lb_av] eCW1 ([facility]) Body height 70 [in_i] 70 [in_i] eCW1 ([facility]) Body mass index (BMI) [Ratio] 26.05 kg/m2 26.05 kg/m2 eCW1 ([facility]) Systolic blood pressure 116 mm[Hg] 116 mm[Hg] e CW1 ([facility]) Diastolic blood pressure 68 mm[Hg] 68 mm[Hg] eCW1 ([facility]) Body weight 183 [lb_av] 183 [lb_av] eCW1 ([facility]) Body height 70 [in_i] 70 [in_i] eCW1 ([facility]) Body mass index (BMI) [Ratio] 26.25 kg/m2 26.25 kg/m2 eCW1 ([facility]) Heart rate 102 /min 102 /min eCW1 ([facility]) Respiratory rate 18 /min 18 /min eCW1 ([facility]) Body temperature 98.9 [degF] 98.9 [degF] eCW1 ( [facility]) Systolic blood pressure 130 mm[Hg] 130 mm[Hg] e CW1 ([facility]) Diastolic blood pressure 66 mm[Hg] 66 mm[Hg] eCW1 ([facility]) Patient Treatment Plan of Care Planned Activity Planned Date Details Description Data Source (s) Fluoxetine 40 MG Oral Capsule 03/17/2021 12:00:00 AM EDT eCW1 ([facility]) Fluoxetine 20 MG Oral Capsule 03/17/2021 12:00:00 AM EDT eCW1 ([facility]) doxycycline hyclate 100 MG Oral Capsule 01/15/2021 12:00:00 AM EDT eCW1 ([facility]) Amoxicillin 875 MG / Clavulanate 125 MG Oral Tablet 08/27/19 21 12:00:00 AM EST eCW1 ([facility]) Amoxicillin 875 MG / Clavulanate 125 MG Oral Tablet 08/27/19 21 12:00:00 AM EST eCW1 ([facility])
[2021-05-20] MEDS: traZODone 100 MG TAB PO PRN ×2 (00:31→20:14)
[2021-05-20 00:54] VITALS: BP 118/79
[2021-05-20] MEDS: NEOSPORIN TOP OINT 15GM TOP SCH (09:00)
[2021-05-20] MEDS: FLUoxetine 20 MG CAP PO SCH (10:09)
[2021-05-20] MEDS: NICOTINE 21MG/24HR 1 EA TRANSDERMAL TD SCH (10:10)
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
[2021-05-20] MEDS ORDERED: LORazepam 1 MG TAB PO ONE (13:00)
[2021-05-20] MEDS: OLANZapine 2.5MG TABLET PO SCH ×2 (13:37→20:14)
--- NOTE | 2021-05-20 16:56 | HPEPDOC ---
[facility] Medical History & Physical Date of Admission May 20, 2021 Date of Service: May 20, 2021 Attending Physician: JOSE BELL MD History and Physical CHIEF COMPLAINT: Depressed, passive SI HISTORY OF PRESENT ILLNESS: 36-year-old M with a history of depression, gallstones who was recently admitted for depression and expressed suicidal ideation i/s/o familial psychosocial stressors with ongoing conflict with this girlfriend and he expressed suicidality and told her that if he it would be her and their son's fault. Of note there have been several changes to his psych meds and he has chosen to take only prozac recently and stopped the others. In the ED, he had a mild leukocytosis to 14.5 and tox screen was positive for marijuana. He was otherwise hemodynamically stable and afebrile. He was admitted to the [facility] and medicine is now consulted for medical H&P. On my evaluation, he had no physical complaints had a cyst removal with a scab on right chest that is no bothersome. He denied any fever, chills, chest pain, dyspnea, palpitations, drainage from his recent excised cyst. PAST MEDICAL HISTORY: Depression anxiety PAST SURGICAL HISTORY: Remote history of hernia repair in childhood. SOCIAL HISTORY: Active smoker Consumes alcohol socially Has a 5-year-old son with his girlfriend. FAMILY HISTORY: Cancer in the family, unable to specify further ALLERGIES: Please see below. REVIEW OF SYSTEMS: 10 point review of systems was completed and otherwise negative, with all pertinent findings noted in the HPI. PHYSICAL EXAMINATION: VITAL SIGNS: please see below General: NAD, comfortable HEENT: PERRLA, EOMI, sclerae clear Neck: supple, normal ROM, no JVD Respiratory: lungs CTAB, no wheeze, no rales, no crackles. Anterior R chest with nickel sized open sore with scant purulent drainage and mild surrounding erythema CVS: RRR, normal S1, S2, no murmurs Abdo: Normoactive bowel sounds, soft, NTND, without rigidity or guarding. Extremities: no edema, pulses 2+, WWP Neuro: no focal neuro deficits, moving all 4 extremities, CN2-12 intact. S trength 5/5 in all 4 extremities. Normal gait. Psych: calm, cooperative, AO x 3 LABORATORY DATA: See below. IMAGING: None MICROBIOLOGY: Please see below. ASSESSMENT: 36-year-old M with a history of depression, gallstones who was recently admitted for depression and expressed suicidal ideation i/s/o familial psychosocial stressors with ongoing conflict with this girlfriend and he expressed suicidality and told her that if he it would be her and their son's fault and admitted to the [facility] for depression and suicidal ideation and medicine is now consulted for medical H&P. PLAN: Depression and passive suicidal ideation: -Plan per primary psychiatry team Excised anterior chest cyst scab w/ some drainage and early cellulitis: -follows with Dermatology in the outpatient setting -topical antibiotic and bandaid -doxycycline 100mg BID for 7d Neck cyst: follows with ENT, with Dr. Estrella, to follow up outpatient Thank you for involving me in the care of this patient. I will sign off at this time. Vital Signs Vital Signs Date Time Temp Pulse Resp B/P (MAP) Pulse Ox O2 Delivery O2 Flow Rate FiO2 05/20/21 00:54 97.6 66 16 118/79 (92) 97 Room Air Laboratory Data Labs 24H Laboratory Tests 2 05/19/21 15:54: Coronavirus (COVID-19)(PCR) NEGATIVE, Influenza Type A (RT-PCR) NEGATIVE, Influenza Type B (RT-PCR) NEGATIVE, Respiratory Syncytial Virus (PCR) NEGATIVE Home Medications Scheduled Fluoxetine Hcl (Fluoxetine HCl) 40 Mg Capsule, 80 MG PO DAILY Scheduled PRN Trazodone HCl (Trazodone HCl) 100 Mg Tablet, 100 MG PO QHS PRN for SLEEP Allergies Coded Allergies: Sulfa (Sulfonamide Antibiotics) (Verified Allergy, Unknown, 12/12/18) rash sulfamethoxazole (Verified Allergy, Unknown, 12/12/18) rash trimethoprim (Verified Allergy, Unknown, 12/12/18) rash A-FIB/CHADSVASC A-FIB History Current/History of A-Fib/PAF?: No Current PO Anticoag Therapy: No Age/Risk Factor Scoring CHADSVASC: CHADSVASC Response (Comments) Value Age Risk Factor Age < 65 years old 0 Gender Risk Factor Male 0 Hx of CHF No 0 Hx of HTN No 0 Hx of Stroke/TIA/or VTE No 0 Hx of Diabetes No 0 Hx of Vascular Disease No 0 Total 0 Treatment Treatment ordered: NONE Reason Anticoagulant not given: Not indicated/[id number] KUPJOSE SULLIVAN MD May 20, 2021 16:11
[2021-05-20 19:05] VITALS: BP 140/85
[2021-05-20] MEDS: DOXYCYCLINE HYCLATE 100MG TABLET PO SCH (20:14)
[2021-05-21 06:16] VITALS: BP 112/76
[2021-05-21] MEDS: OLANZapine 2.5MG TABLET PO SCH ×2 (08:25→20:11)
[2021-05-21] MEDS: FLUoxetine 20 MG CAP PO SCH (08:25)
[2021-05-21] MEDS: DOXYCYCLINE HYCLATE 100MG TABLET PO SCH ×2 (08:25→20:11)
[2021-05-21] MEDS: NICOTINE 21MG/24HR 1 EA TRANSDERMAL TD SCH (08:26)
[2021-05-21] MEDS: NEOSPORIN TOP OINT 15GM TOP SCH (08:30)
[2021-05-21] MEDS ORDERED: NEOSPORIN OINT 0.9 GM PKT TOP SCH (09:00)
[2021-05-21] MEDS: LORazepam 0.5 MG TAB PO PRN (16:44)
[2021-05-21 18:00] VITALS: BP 125/79
[2021-05-21] MEDS: traZODone 100 MG TAB PO PRN (20:11)
[2021-05-22 06:26] VITALS: BP 112/61
[2021-05-22] MEDS: DOXYCYCLINE HYCLATE 100MG TABLET PO SCH ×2 (08:04→20:23)
[2021-05-22] MEDS: FLUoxetine 20 MG CAP PO SCH (08:04)
[2021-05-22] MEDS: OLANZapine 2.5MG TABLET PO SCH (08:04)
[2021-05-22] MEDS: NEOSPORIN TOP OINT 15GM TOP SCH (08:05)
[2021-05-22] MEDS: LORazepam 0.5 MG TAB PO PRN ×2 (08:05→20:24)
[2021-05-22] MEDS: NICOTINE 21MG/24HR 1 EA TRANSDERMAL TD SCH (08:06)
[2021-05-22] MEDS ORDERED: LORazepam 0.5 MG TAB PO ONE (16:00)
[2021-05-22 18:00] VITALS: BP 126/88
[2021-05-22] MEDS: OLANZapine 5 MG TAB PO SCH (20:23)
[2021-05-22] MEDS: traZODone 100 MG TAB PO PRN (20:23)
[2021-05-23 06:09] VITALS: BP 113/65
[2021-05-23] MEDS: DOXYCYCLINE HYCLATE 100MG TABLET PO SCH ×2 (08:11→20:16)
[2021-05-23] MEDS: OLANZapine 2.5MG TABLET PO SCH (08:12)
[2021-05-23] MEDS: FLUoxetine 20 MG CAP PO SCH (08:13)
[2021-05-23] MEDS: NICOTINE 21MG/24HR 1 EA TRANSDERMAL TD SCH (08:13)
[2021-05-23] MEDS: LORazepam 0.5 MG TAB PO PRN ×2 (08:14→20:16)
[2021-05-23] MEDS: NEOSPORIN TOP OINT 15GM TOP SCH (08:34)
[2021-05-23] MEDS: OLANZapine ORAL DISINTEGRATING TAB 5MG PO PRN ×2 (18:04→21:30)
[2021-05-23 19:10] VITALS: BP 131/72
[2021-05-23] MEDS: traZODone 100 MG TAB PO PRN (20:16)
[2021-05-23] MEDS: OLANZapine 5 MG TAB PO SCH (20:16)
[2021-05-24 06:32] VITALS: BP 159/74
[2021-05-24] MEDS: DOXYCYCLINE HYCLATE 100MG TABLET PO SCH ×2 (08:29→20:01)
[2021-05-24] MEDS: OLANZapine 2.5MG TABLET PO SCH (08:30)
[2021-05-24] MEDS: FLUoxetine 20 MG CAP PO SCH (08:30)
[2021-05-24] MEDS: NEOSPORIN TOP OINT 15GM TOP SCH (08:31)
[2021-05-24] MEDS: NICOTINE 21MG/24HR 1 EA TRANSDERMAL TD SCH (08:31)
[2021-05-24] MEDS: LORazepam 0.5 MG TAB PO PRN ×2 (08:34→20:01)
--- NOTE | 2021-05-24 14:26 | MHIPN ---
[facility] PROGRESS NOTE DATE: 05/23/2021 VITAL SIGNS: Blood pressure 131/72, pulse 84, temperature 97.4. This is a video assessment. He is aware of it and agrees to it. He is in the inpatient psychiatry unit. He is seen in the presence of staff. I am at the clinic. CHIEF COMPLAINT: Feels depressed. SUBJECTIVE: Seen for followup. Indicates feels depressed. Continues to feel hopeless. Says has felt tired and anxious. He does not think that the lorazepam is enough for the anxiety. MENTAL STATUS EXAMINATION: cooperative. No agitation. No psychomotor retardation. Coherent. Answers questions briefly, logical. Affect is restricted in range. Appears depressed. No evidence of any thoughts of harming himself. Vague on suicidal thoughts. No firm plans. No homicidal ideas or intents. Does not appear internally preoccupied. Cognition grossly intact. Judgment and insight are compromised. ASSESSMENT: 1. Major depressive disorder, recurrent, severe. 2. Generalized anxiety disorder. 3. Cannabis use disorder. Remains considerably depressed. Feels hopeless. This continues to impact his judgment and insight. Says has tolerated the increase in the olanzapine quite okay so far. PLAN: Continue current care, including fluoxetine at 80 mg daily, olanzapine a total of 7.5 mg daily in divided doses. Lorazepam is to continue in the short term at 0.5 mg twice a day as needed for anxiety but would suggest tapering it off prior to leaving the hospital. He will be seen by on-call psychiatric over the weekend (today is Wednesday) and after that by the assigned clinician. The assessment took 15 minutes.
[2021-05-24] MEDS: OLANZapine ORAL DISINTEGRATING TAB 5MG PO PRN (15:42)
[2021-05-24 18:36] VITALS: BP 130/73
[2021-05-24] MEDS: traZODone 100 MG TAB PO PRN (20:01)
[2021-05-24] MEDS: OLANZapine 5 MG TAB PO SCH (20:01)
[2021-05-25 06:49] VITALS: BP 144/72
[2021-05-25] MEDS: NICOTINE 21MG/24HR 1 EA TRANSDERMAL TD SCH (09:20)
[2021-05-25] MEDS: NEOSPORIN TOP OINT 15GM TOP SCH (09:20)
[2021-05-25] MEDS: FLUoxetine 20 MG CAP PO SCH (09:20)
[2021-05-25] MEDS: OLANZapine 2.5MG TABLET PO SCH (09:20)
[2021-05-25] MEDS: DOXYCYCLINE HYCLATE 100MG TABLET PO SCH ×2 (09:20→20:01)
[2021-05-25] MEDS: LORazepam 0.5 MG TAB PO PRN ×2 (09:22→20:01)
[2021-05-25] MEDS: hydrOXYzine 25 MG TAB PO PRN (12:59)
[2021-05-25 18:16] VITALS: BP 145/82
[2021-05-25] MEDS: OLANZapine 5 MG TAB PO SCH (20:01)
[2021-05-25] MEDS: traZODone 100 MG TAB PO PRN (20:03)
[2021-05-26 06:25] VITALS: BP 123/72
[2021-05-26] MEDS: LORazepam 0.5 MG TAB PO PRN ×2 (08:14→20:21)
[2021-05-26] MEDS: NICOTINE 21MG/24HR 1 EA TRANSDERMAL TD SCH (08:14)
[2021-05-26] MEDS: DOXYCYCLINE HYCLATE 100MG TABLET PO SCH ×2 (08:15→20:21)
[2021-05-26] MEDS: FLUoxetine 20 MG CAP PO SCH (08:15)
[2021-05-26] MEDS: OLANZapine 2.5MG TABLET PO SCH (08:15)
[2021-05-26] MEDS: NEOSPORIN TOP OINT 15GM TOP SCH (09:22)
[2021-05-26] MEDS: hydrOXYzine 25 MG TAB PO PRN (15:07)
[2021-05-26] MEDS ORDERED: LORazepam 0.5 MG TAB PO ONE (15:30)
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
[2021-05-26] MEDS: LITHIUM CARBONATE 150 MG CAP PO SCH (16:12)
[2021-05-26 16:55] VITALS: BP 122/90
[2021-05-26] MEDS: traZODone 100 MG TAB PO PRN (20:21)
[2021-05-26] MEDS: OLANZapine 5 MG TAB PO SCH (20:21)
[2021-05-27] MEDS: LITHIUM CARBONATE 150 MG CAP PO SCH (08:40)
[2021-05-27] MEDS: NEOSPORIN TOP OINT 15GM TOP SCH (08:40)
[2021-05-27] MEDS: OLANZapine 2.5MG TABLET PO SCH (08:40)
[2021-05-27] MEDS: LORazepam 0.5 MG TAB PO PRN ×2 (08:41→20:04)
[2021-05-27] MEDS: FLUoxetine 20 MG CAP PO SCH (08:41)
[2021-05-27] MEDS: DOXYCYCLINE HYCLATE 100MG TABLET PO SCH ×2 (08:41→20:04)
[2021-05-27] MEDS: NICOTINE 21MG/24HR 1 EA TRANSDERMAL TD SCH (08:42)
[2021-05-27] MEDS: hydrOXYzine 25 MG TAB PO PRN (13:16)
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
[2021-05-27] MEDS ORDERED: hydrOXYzine 50 MG TAB PO STA (14:17)
[2021-05-27 16:24] VITALS: BP 134/80
[2021-05-27] MEDS: traZODone 100 MG TAB PO PRN (20:04)
[2021-05-27] MEDS: OLANZapine 5 MG TAB PO SCH (20:04)
[2021-05-28 06:34] VITALS: BP 112/70
[2021-05-28] MEDS: LORazepam 0.5 MG TAB PO PRN ×2 (08:34→20:00)
[2021-05-28] MEDS: NEOSPORIN TOP OINT 15GM TOP SCH (08:34)
[2021-05-28] MEDS: OLANZapine 2.5MG TABLET PO SCH (08:35)
[2021-05-28] MEDS: NICOTINE 21MG/24HR 1 EA TRANSDERMAL TD SCH (08:35)
[2021-05-28] MEDS: LITHIUM CARBONATE 150 MG CAP PO SCH (08:35)
[2021-05-28] MEDS: FLUoxetine 20 MG CAP PO SCH (08:35)
[2021-05-28 09:35] LABS: HEMATOCRIT 49.2 % (42.0-52.0); HEMOGLOBIN 16.3 g/dl (13.5-17.5); MEAN CORPUSCULAR HEMOGLOBIN 30.5 pg (27.0-33.0); MEAN CORPUSCULAR HGB CONC 33.1 g/dl (32.0-36.5); MEAN CORPUSCULAR VOLUME 92.1 fl (80.0-96.0); PLATELET COUNT, AUTOMATED 346 10^3/uL (150-450); RED BLOOD COUNT 5.34 10^6/uL (4.30-6.10); WHITE BLOOD COUNT 7.2 10^3/uL (4.0-10.0)
[2021-05-28 09:59] LABS: ALBUMIN 3.9 GM/DL (3.2-5.2); ALT/SGPT 34 U/L (12-78); BILIRUBIN,DIRECT 0.1 MG/DL (0.0-0.2); BILIRUBIN,TOTAL 0.4 MG/DL (0.2-1.0); BLOOD UREA NITROGEN 15 MG/DL (7-18); CALCIUM LEVEL 9.8 MG/DL (8.5-10.1); CARBON DIOXIDE LEVEL 27 MEQ/L (21-32); CHLORIDE LEVEL 108 MEQ/L (98-107); CREATININE FOR GFR 0.95 MG/DL (0.70-1.30); FREE THYROXINE INDEX 3.2 % (1.4-3.8); GLOMERULAR FILTRATION RATE > 60.0 (>60); GLUCOSE, FASTING 109 MG/DL (70-100); PHOSPHORUS LEVEL 3.5 MG/DL (2.5-4.9); POTASSIUM SERUM 4.4 MEQ/L (3.5-5.1); SODIUM LEVEL 141 MEQ/L (136-145); T UPTAKE 37 % (33-40); THYROID STIMULATING HORMONE 0.904 uIU/ML (0.358-3.740); THYROXINE (T4) 8.6 UG/DL (4.5-12.0); TOTAL PROTEIN 7.4 GM/DL (6.4-8.2)
[2021-05-28] MEDS ORDERED: cloNIDine 0.1MG TABLET PO ONE (14:20)
[2021-05-28 16:17] VITALS: BP 132/80
--- NOTE | 2021-05-28 17:21 | MHIPN ---
[facility] PROGRESS NOTE DATE: 05/22/2021 VITAL SIGNS: Blood pressure 125/79, pulse 64, temperature 98.2. This is a video assessment. He is seen in the inpatient psychiatry unit in the presence of staff. I am at the clinic. I am assigned to his care today. CHIEF COMPLAINT: Feels depressed. SUBJECTIVE: Seen for followup. Has been feeling depressed. Feels hopeless. Does not think he is getting better and says wishes to go home but acknowledges that he has not felt any better since coming in. Has suicidal thoughts. Vague on plans. [place] anxious as well and says took Ativan yesterday (lorazepam), and that it tended to help. Says has used Xanax in the past as needed but felt that the Ativan was smoother in its response. MENTAL STATUS EXAMINATION: Neat, guarded, coherent. No agitation. No psychomotor retardation. Affect restricted in range with little reactivity. Has suicidal thoughts. No firm plans. No homicidal ideas or intents. Currently no overt evidence of psychosis. Cognition grossly intact. Judgment and insight are compromised. ASSESSMENT: 1. Major depressive disorder, recurrent, severe. 2. Generalized anxiety disorder. 3. Cannabis use disorder. Remains depressed. Feels hopeless, and this impacts his judgment and insight. PLAN: I would suggest continuing current care but that he switch to using lorazepam at 0.5 mg twice a day as needed for anxiety. It is preferable this is used only when he is in hospital. He is to continue with fluoxetine at 80 mg daily, olanzapine 2.5 mg twice a day. He uses cannabis regularly, and this may well exacerbate his moods and anxiety. Continue current precautions and encourage participation in activities in the unit. Further recommendations to be made depending on the clinical picture. The assessment took 15 minutes.
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
[2021-05-28] MEDS: traZODone 100 MG TAB PO PRN (20:00)
[2021-05-28] MEDS: LITHIUM CARBONATE 300 MG **CR** TAB PO SCH (20:00)
[2021-05-28] MEDS: OLANZapine 5 MG TAB PO SCH (20:00)
[2021-05-29 06:50] VITALS: BP 138/81
[2021-05-29] MEDS: OLANZapine 2.5MG TABLET PO SCH (08:14)
[2021-05-29] MEDS: LORazepam 0.5 MG TAB PO PRN ×2 (08:15→21:23)
[2021-05-29] MEDS: FLUoxetine 20 MG CAP PO SCH (08:15)
[2021-05-29] MEDS: NICOTINE 21MG/24HR 1 EA TRANSDERMAL TD SCH (08:15)
[2021-05-29] MEDS: NEOSPORIN TOP OINT 15GM TOP SCH (08:16)
[2021-05-29] MEDS ORDERED: OLAN2.5T25 PO (10:27)
[2021-05-29] MEDS ORDERED: LITH1TAB PO (10:27)
[2021-05-29] MEDS ORDERED: CLONI1TA PO (10:27)
[2021-05-29] MEDS ORDERED: ATIV1TAB10 PO (10:27)
[2021-05-29] MEDS ORDERED: OLAN1TAB16 PO (10:27)
[2021-05-29] MEDS ORDERED: NICO21PAT TD (10:27)
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
[2021-05-29] MEDS: cloNIDine 0.1MG TABLET PO SCH ×2 (12:02→21:23)
[2021-05-29 18:41] VITALS: BP 118/67
[2021-05-29] MEDS: LITHIUM CARBONATE 300 MG **CR** TAB PO SCH (21:21)
[2021-05-29] MEDS: OLANZapine 5 MG TAB PO SCH (21:23)
[2021-05-29] MEDS: traZODone 100 MG TAB PO PRN (21:23)
[2021-05-30 06:29] VITALS: BP 124/70
[2021-05-30] MEDS: NEOSPORIN TOP OINT 15GM TOP SCH (08:50)
[2021-05-30 08:53] VITALS: BP 124/70
[2021-05-30] MEDS: LORazepam 0.5 MG TAB PO PRN (08:53)
[2021-05-30] MEDS: FLUoxetine 20 MG CAP PO SCH (08:53)
[2021-05-30] MEDS: OLANZapine 2.5MG TABLET PO SCH (08:53)
[2021-05-30] MEDS: cloNIDine 0.1MG TABLET PO SCH (08:53)
[2021-05-30] MEDS: NICOTINE 21MG/24HR 1 EA TRANSDERMAL TD SCH (08:54)
[2021-05-30 08:59] VITALS: BP 124/70
--- NOTE | 2021-05-30 15:19 | MHDSPDOC ---
[facility] Discharge Summary Discharge Summary DATE OF ADMISSION: May 19, 2021 at 22:10 DATE OF DISCHARGE: May 30, 2021 at 10:54 DISCHARGE DIAGNOSES: Bipolar, depressed Generalized anxiety disorder Social anxiety Cannabis use disorder Rule out somatic symptom disorder Rule out dependent personality disorder Patient's discharge interview was done by Anya as this provider is not in the hospital at the time that patient was being discharged. REASON FOR ADMISSION: Patient is a 36 -year-old , male, who reports that he has increased depression and increased suicidal ideations. Reports that his girlfriend has a restraining order against him because he said "If I , it's your fault." States that he said this to both his girlfriend and his son. Lives with his girlfriend and son. Reporting that Abilify is making things worse, worries about more, I just feel worse." Seroquel was Rx'd and then replaced with Abilify. Patient wants to be transferred to a different hospital. Has taken Xanax in the past and states that this is helpful. Worries daily about and dying. After my Dad , "I never got over it, I can't handle life. I am just waiting for something bad to happen. I watched him , I probably have PTSD from that." During this position the patient reported that he had attempted to suicide by carbon monoxide poisoning, he had heard the police sirens in left the vicinity where he was trying to kill himself, he was then in a high-speed angela with the police trying to avoid them. He reports that though he feels that he is depressed he has had many episodes of being very labile, very agitated throughout the day, in cycling back to depression even in the same day. PER ED REPORT: Patient presented to the ED after gf called the mobile home mechanic. Patient states that he is not doing well. Patient has been feeling miserable everyday and stopped taking his medications as he feels that they are no longer working. Patient stopped taking abilify, wellbutrin, gabapentin and is currently only taking Prozac which is prescribed by his pcp. [facility] and has not returned to [facility]. Patient also stated that life itself is a big stressor as well his gf. Patient has been feeling increased SI/depression. Patient feels that he needs to be admitted. Interval: Per treatment team patient was in a high-speed angela prior to his admission and has 25+ traffic violations because of this high-speed angela. Per staff patient remains delusional and talks about . Per per his girlfriend patient can be very volatile, jealous, agitated for long periods of time VITAL SIGNS: See below. CONSULTANTS INVOLVED: See Medical H + P by Hospitalist TREATMENT AND PROGRESS ON THE UNIT: Patient was admitted to the [facility] on a legal status was afforded the following treatment modalities: 1) Individual Therapy 2) Group Therapy 3) Medication Management 4) Milieu Therapy 5) Safe Environment HOSPITAL COURSE: Patient was admitted to [facility] on a legal status. Patient was restarted on his home medications. Patient reported that he was still feeling the same midway through his admission, lithium was added and he reported that he was feeling some improvement on lithium. His lithium level on discharge was 0.20 but the patient had only had 2 doses of 300 mg at bedtime at that point. He continued to report that he had anxiety. Several times he needed Ativan 0.5 mg in addition to his order of Ativan 0.5 mg twice daily. He had reported that he had been trialed on Seroquel, Xanax for which she had a an addiction to, propranolol, gabapentin, hydroxyzine, BuSpar and stated that none of these medications worked well for him to reduce his anxiety. We discussed at length that this provider did not want to continue his Ativan for long-term. Patient was discharged on Ativan 0.5 mg once daily as needed with 3 refills. In addition to that clonidine 0.1 mg twice daily was added to maintain his anxiety closer to baseline throughout the day while he is working. The pt found medications beneficial and tolerated them well. Mood, anxiety, and intrusive thoughts improved with treatment. Pt attended groups daily during stay. Pts symptoms improved with treatment. On day of discharge pt. denied depression, anxiety, insomnia, SI/HI, hallucinations, delusions. Pt was discharged home with follow-up at [facility]. Pt felt safe for discharge. DISCHARGE ASSESSMENT: In today's interview, patient is alert and oriented, pt.s dress is appropriate. Hygiene and grooming is well-kempt. Smiles on approach and is pleasant and engaged in the interview. Denies depression and anxiety. Denies suicidal and homicidal ideation, planning or intent. Denies and is not observed with franki, psychotic symptoms of delusions, bizarre thinking, obsessions, paranoia, ruminations illogical thoughts, flight of ideas or having poor insight and judgement. Reinforced with patient need to abstain from alcohol and drugs. At discharge patient has normal mentation, declines further hospitalization on a voluntary status and meets criteria for discharge today. Discussed indications of medications, potential benefits and risks, alternatives (including no treatment) and questions were encouraged and answered. Patient encouraged to return to hospital if symptoms worsen or change and encouraged to call unit if he/she/they needs to speak to provider for questions regarding medications or care. MENTAL STATUS EXAMINATION ON DISCHARGE: Patient is a 36 -year-old , male, who reports that he has increased depression and increased suicidal ideations. Reports that his girlfriend has a restraining order against him because he said "If I , it's your fault." Speech: Is fluid, conversant, normal rate, tone and volume Language skills are intact Thought processes including: linear and goal oriented Thought content: denies depression and anxiety. Denies suicidal/homicidal ideation, planning or intent. Abstract reasoning, and computation: fair Description of associations: denies, none observed Description of abnormal or psychotic thoughts: denies, none observed. Judgment: fair Insight: fair Orientation: alert and oriented to person, place, time and situation Recent and remote memory: intact Attention span and concentration: good Language: expansive Fund of knowledge: average Mood: Euthymic Mood Affect: reactive Suicide Risk Assessment: 1) Does the patient wish to be ? No 2) Since your admission, have you had any actual thought of killing yourself? No 3) Since your admission, have you been thinking about how you might do this? No 4) Since your admission, have you had these thoughts and had some intention of acting on them? No 5) Since your admission, have you started to work out or worked out the details of how to kill yourself? No 5A) Do you intent to carry out this plan? No and NA 6) Have you ever done anything, started anything, or prepared to do anything with any intent to ? No 6A) How long since your admission did you do any of these? NA MEDICATIONS ON DISCHARGE: See Medication Reconciliation PLAN/FOLLOWUP ARRANGEMENTS: [facility] The amount of time spent in the coordination of care for this patient was approximately 20 minutes. ETOH/Disorder Med Rx ETOH/DRUG DISORDER RX: N/A Vital Signs/I&Os Vital Signs Date Time Temp Pulse Resp B/P (MAP) Pulse Ox O2 Delivery O2 Flow Rate FiO2 05/30/21 08:59 97.7 71 18 124/70 98 Room Air Laboratory Data Labs 24H Laboratory Tests 2 05/29/21 19:15: Botines Level < 0.20L Medications Scheduled Clonidine Hcl (Clonidine HCl) 0.1 Mg Tablet, 0.1 MG PO BID for Anxiety for 7 Days, #14 Fluoxetine Hcl (Fluoxetine HCl) 40 Mg Capsule, 80 MG PO DAILY, (Reported) Botines Carbonate (Botines Carbonate ER) 300 Mg Tablet.er, 300 MG PO QHS for Mood Stabilizer for 7 Days, #7 Nicotine (Nicotine Patch) 21 Mg Patch.td24, 1 PATCH TD DAILY for Nicotine Withdrawal for 7 Days, #7 Olanzapine (Olanzapine) 2.5 Mg Tablet, 2.5 MG PO DAILY for Mood for 7 Days, #7 Olanzapine (Olanzapine) 5 Mg Tablet, 5 MG PO QHS for Mood for 7 Days, #7 Scheduled PRN Lorazepam (Ativan) 0.5 Mg Tablet, 0.5 MG PO DAILYPRN PRN for ANXIETY for 7 Days, #7 Trazodone HCl (Trazodone HCl) 100 Mg Tablet, 100 MG PO QHS PRN for SLEEP, ( Reported) Allergies Coded Allergies: Sulfa (Sulfonamide Antibiotics) (Verified Allergy, Unknown, 12/12/18) rash sulfamethoxazole (Verified Allergy, Unknown, 12/12/18) rash trimethoprim (Verified Allergy, Unknown, 12/12/18) rash LIDA ARMSTRONG [employer] May 30, 2021 15:19
== END 2021-05-30 10:54 | disposition home or self-care (01) | DRG 753 ==
LOC: M ED 08:03 → M ED INP 22:10 → M PSY 23:52
PROVIDERS: ADMIT Internal Medicine; ATTEND Psychiatry & Neurology Psychiatry
DX: F31.9 Bipolar disorder, unspecified (principal); L03.313 Cellulitis of chest wall; F41.1 Generalized anxiety disorder; F12.10 Cannabis abuse, uncomplicated; F60.7 Dependent personality disorder; F40.10 Social phobia, unspecified; F17.200 Nicotine dependence, unspecified, uncomplicated; F45.1 Undifferentiated somatoform disorder; Z20.822 Contact with and (suspected) exposure to COVID-19; Z79.899 Other long term (current) drug therapy; Z88.2 Allergy status to sulfonamides; Z88.8 Allergy status to other drugs, medicaments and biological substances; R45.851 Suicidal ideations; Z63.5 Disruption of family by separation and divorce

== ENCOUNTER → 2021-06-02 | Outpatient (CLI) | payer BC ==
[~2021-06-02] MED LIST changes: +ATIV1TAB10 PO; +CLONI1TA PO; +FLUO40CA PO; +LITH1TAB PO; +OLAN1TAB16 PO; +OLAN2.5T25 PO; +OLAN5ZYD
[2021-06-02 13:29] LABS: HEMATOCRIT 45.5 % (42.0-52.0); HEMOGLOBIN 15.1 g/dl (13.5-17.5); MEAN CORPUSCULAR HEMOGLOBIN 30.8 pg (27.0-33.0); MEAN CORPUSCULAR HGB CONC 33.2 g/dl (32.0-36.5); MEAN CORPUSCULAR VOLUME 92.7 fl (80.0-96.0); PLATELET COUNT, AUTOMATED 367 10^3/uL (150-450); RED BLOOD COUNT 4.91 10^6/uL (4.30-6.10); WHITE BLOOD COUNT 10.2 10^3/uL (4.0-10.0)
[2021-06-02 13:42] LABS: HEMOGLOBIN A1c 5.3 %
[2021-06-02 14:05] LABS: ALBUMIN 3.8 GM/DL (3.2-5.2); ALT/SGPT 31 U/L (12-78); BILIRUBIN,TOTAL 0.3 MG/DL (0.2-1.0); BLOOD UREA NITROGEN 15 MG/DL (7-18); CALCIUM LEVEL 9.4 MG/DL (8.5-10.1); CARBON DIOXIDE LEVEL 29 MEQ/L (21-32); CHLORIDE LEVEL 106 MEQ/L (98-107); CHOLESTEROL LEVEL 187 MG/DL (<200); CHOLESTEROL RISK RATIO 2.561 (<5); CREATININE FOR GFR 0.84 MG/DL (0.70-1.30); GLOMERULAR FILTRATION RATE > 60.0 (>60); GLUCOSE, FASTING 89 MG/DL (70-100); HDL CHOLESTEROL 73 MG/DL (>40); LDL CHOLESTEROL 102 MG/DL (<100); LITHIUM LEVEL < 0.20 MEQ/L (0.60-1.20); NON-HDL-C 114 MG/DL; POTASSIUM SERUM 4.6 MEQ/L (3.5-5.1); SODIUM LEVEL 140 MEQ/L (136-145); TOTAL 25(OH) VITAMIN D 26.9 NG/ML (30.0-100.0); TOTAL PROTEIN 7.1 GM/DL (6.4-8.2); TRIGLYCERIDES LEVEL 60 MG/DL (<150)
== END ==
LOC: M LAB 12:28
PROVIDERS: ATTEND Family Medicine
DX: D64.9 Anemia, unspecified (principal)

== ENCOUNTER 2021-09-15 08:23 | Inpatient (IN) | payer BC ==
[~2021-09-15] VITALS: Ht 177.8 cm; Wt 91.2 kg
[~2021-09-15 08:23] MED LIST changes: -CITA10TA5 PO; +CITA10TA7 PO
[2021-09-15] MEDS ORDERED: ERGO500029 PO (08:31)
[2021-09-15 09:23] LABS: HEMATOCRIT 47.5 % (42.0-52.0); HEMOGLOBIN 15.7 g/dl (13.5-17.5); MEAN CORPUSCULAR HEMOGLOBIN 29.9 pg (27.0-33.0); MEAN CORPUSCULAR HGB CONC 33.1 g/dl (32.0-36.5); MEAN CORPUSCULAR VOLUME 90.5 fl (80.0-96.0); PLATELET COUNT, AUTOMATED 363 10^3/uL (150-450); RED BLOOD COUNT 5.25 10^6/uL (4.30-6.10); WHITE BLOOD COUNT 9.4 10^3/uL (4.0-10.0)
[2021-09-15 09:49] LABS: AMPHETAMINES LEVEL URINE NEGATIVE (NEGATIVE); BARBITURATES URINE NEGATIVE (NEGATIVE); BENZODIAZEPINES URINE NEGATIVE (NEGATIVE); CANNABINOIDS URINE POSITIVE (NEGATIVE); COCAINE METABOLITE URINE NEGATIVE (NEGATIVE); METHADONE URINE NEGATIVE (NEGATIVE); OPIATES URINE NEGATIVE (NEGATIVE); PHENCYCLIDINE URINE NEGATIVE (NEGATIVE)
[2021-09-15 10:10] LABS: ACETAMINOPHEN LEVEL < 2.0 UG/ML (10.0-30.0); ALBUMIN 4.2 GM/DL (3.2-5.2); ALT/SGPT 34 U/L (12-78); BILIRUBIN,DIRECT 0.1 MG/DL (0.0-0.2); BILIRUBIN,TOTAL 0.4 MG/DL (0.2-1.0); BLOOD UREA NITROGEN 20 MG/DL (7-18); CALCIUM LEVEL 9.9 MG/DL (8.5-10.1); CARBON DIOXIDE LEVEL 30 MEQ/L (21-32); CHLORIDE LEVEL 105 MEQ/L (98-107); CREATININE FOR GFR 0.86 MG/DL (0.70-1.30); ETHYL ALCOHOL (ETHANOL) < 0.003 % (0.000-0.010); GLOMERULAR FILTRATION RATE > 60.0 (>60); GLUCOSE, FASTING 82 MG/DL (70-100); LITHIUM LEVEL < 0.20 MEQ/L (0.60-1.20); POTASSIUM SERUM 4.1 MEQ/L (3.5-5.1); SALICYLATE LEVEL 2.2 MG/DL (5.0-30.0); SODIUM LEVEL 140 MEQ/L (136-145)
[2021-09-15] MEDS ORDERED: LORazepam 0.5 MG TAB PO ONE (10:10)
[2021-09-15] MEDS ORDERED: MAALOX 30 ML SUSP *UDC PO PRN (12:55)
[2021-09-15] MEDS ORDERED: traZODone 50 MG TAB PO PRN (12:55)
[2021-09-15] MEDS ORDERED: ACETAMINOPHEN TAB 650MG DOSE (2X325MG) PO PRN (12:55)
[2021-09-15] MEDS ORDERED: MOM 30ML SUSPENSION UDC PO PRN (12:55)
[2021-09-15 15:13] LABS: RSV AMPLIFICATION NEGATIVE (NEGATIVE)
[2021-09-15] MEDS ORDERED: OLAN1TAB16 PO (15:51)
[2021-09-15] MEDS ORDERED: ATIV1TAB10 PO (15:51)
[2021-09-15] MEDS ORDERED: CLON-412 PO (15:51)
[2021-09-15] MEDS ORDERED: LITH1TAB PO (15:51)
[2021-09-15] MEDS ORDERED: OLAN2.5T25 PO (15:51)
[2021-09-15] MEDS ORDERED: HOME MED LIST COMPLETE! XX SCH (15:55)
[2021-09-15 20:30] VITALS: BP 135/87
[2021-09-15] MEDS: traZODone 100 MG TAB PO PRN (20:37)
[2021-09-15] MEDS: OLANZapine 5 MG TAB PO SCH (20:37)
[2021-09-15] MEDS: LITHIUM CARBONATE 300 MG **CR** TAB PO SCH (20:37)
[2021-09-15] MEDS: cloNIDine 0.1MG TABLET PO SCH (20:37)
[2021-09-15] MEDS: LORazepam 0.5 MG TAB PO PRN (20:38)
[2021-09-16 06:25] VITALS: BP 146/98
[2021-09-16] MEDS: OLANZapine 2.5MG TABLET PO SCH (09:34)
[2021-09-16] MEDS: LITHIUM CARBONATE 300 MG **CR** TAB PO SCH ×2 (09:34→20:56)
[2021-09-16] MEDS: FLUoxetine 20 MG CAP PO SCH (09:35)
[2021-09-16] MEDS: cloNIDine 0.1MG TABLET PO SCH ×2 (09:35→20:58)
[2021-09-16] MEDS: LORazepam 0.5 MG TAB PO PRN ×2 (09:35→20:56)
[2021-09-16 16:05] VITALS: BP 103/59
[2021-09-16] MEDS: OLANZapine 5 MG TAB PO SCH (20:57)
[2021-09-17 05:53] VITALS: BP 90/52
[2021-09-17] MEDS: LORazepam 0.5 MG TAB PO PRN ×3 (09:08→21:41)
[2021-09-17] MEDS: FLUoxetine 20 MG CAP PO SCH (09:08)
[2021-09-17] MEDS: OLANZapine 2.5MG TABLET PO SCH (09:09)
[2021-09-17] MEDS: LITHIUM CARBONATE 300 MG **CR** TAB PO SCH ×2 (09:09→21:37)
[2021-09-17] MEDS: cloNIDine 0.1MG TABLET PO SCH ×2 (09:13→21:39)
[2021-09-17 16:34] VITALS: BP 102/60
[2021-09-17] MEDS: OLANZapine 5 MG TAB PO SCH (21:37)
[2021-09-18 06:24] VITALS: BP 135/74
[2021-09-18] MEDS ORDERED: LURASIDONE 20 MG TAB (LATUDA) PO SCH (08:00)
[2021-09-18] MEDS: LITHIUM CARBONATE 300 MG **CR** TAB PO SCH ×2 (08:32→21:42)
[2021-09-18] MEDS: FLUoxetine 20 MG CAP PO SCH (08:32)
[2021-09-18] MEDS: cloNIDine 0.1MG TABLET PO SCH ×2 (08:32→21:42)
[2021-09-18] MEDS: LORazepam 0.5 MG TAB PO PRN ×2 (10:02→14:14)
[2021-09-18 19:27] VITALS: BP 120/81
[2021-09-19 06:28] VITALS: BP 118/68
[2021-09-19] MEDS: LORazepam 0.5 MG TAB PO PRN ×3 (08:02→22:18)
[2021-09-19] MEDS: FLUoxetine 20 MG CAP PO SCH (08:31)
[2021-09-19] MEDS: cloNIDine 0.1MG TABLET PO SCH ×2 (08:32→22:17)
[2021-09-19] MEDS: LITHIUM CARBONATE 300 MG **CR** TAB PO SCH ×2 (08:33→22:15)
[2021-09-19 08:38] LABS: CHOLESTEROL RISK RATIO 3.172 (<5)
[2021-09-19 17:51] VITALS: BP 125/72
[2021-09-19] MEDS ORDERED: LURASIDONE 20 MG TAB (LATUDA) PO SCH (18:00)
[2021-09-20 06:08] VITALS: BP 120/60
[2021-09-20] MEDS: cloNIDine 0.1MG TABLET PO SCH ×2 (08:09→21:35)
[2021-09-20] MEDS: FLUoxetine 20 MG CAP PO SCH (08:10)
[2021-09-20] MEDS: LITHIUM CARBONATE 300 MG **CR** TAB PO SCH ×2 (08:10→21:36)
[2021-09-20] MEDS: LORazepam 0.5 MG TAB PO PRN ×3 (09:47→17:54)
[2021-09-20 16:43] VITALS: BP 106/60
[2021-09-20] MEDS: LURASIDONE HCL 40MG TAB (LATUDA) PO SCH (17:52)
[2021-09-21] MEDS: LORazepam 0.5 MG TAB PO PRN ×2 (06:26→15:59)
[2021-09-21 06:33] VITALS: BP 117/62
[2021-09-21] MEDS: cloNIDine 0.1MG TABLET PO SCH ×2 (08:36→20:54)
[2021-09-21] MEDS: LITHIUM CARBONATE 300 MG **CR** TAB PO SCH ×2 (08:37→20:54)
[2021-09-21] MEDS: FLUoxetine 20 MG CAP PO SCH (08:37)
[2021-09-21 16:14] VITALS: BP 118/61
[2021-09-21] MEDS: LURASIDONE HCL 40MG TAB (LATUDA) PO SCH (18:01)
[2021-09-21] MEDS: traZODone 100 MG TAB PO PRN (20:54)
[2021-09-22 07:07] VITALS: BP 117/73
[2021-09-22] MEDS ORDERED: VITAMIN D 50,000 UNITS CAPSULE (ERGOCALCIFEROL 1.25MG) PO SCH (09:00)
[2021-09-22] MEDS ORDERED: LATU40TA2 PO (09:02)
[2021-09-22 09:08] VITALS: BP 132/84
[2021-09-22] MEDS: cloNIDine 0.1MG TABLET PO SCH (09:08)
[2021-09-22] MEDS: LORazepam 0.5 MG TAB PO PRN (09:08)
[2021-09-22] MEDS: FLUoxetine 20 MG CAP PO SCH (09:09)
[2021-09-22] MEDS: LITHIUM CARBONATE 300 MG **CR** TAB PO SCH (09:09)
== END 2021-09-22 11:43 | disposition home or self-care (01) | DRG 753 ==
LOC: M ED 08:23 → M ED INP 12:52 → M PSY 20:07
PROVIDERS: ADMIT Student in an Organized Health Care Education/Training Program; ATTEND Psychiatry & Neurology Psychiatry
DX: F31.9 Bipolar disorder, unspecified (principal); F41.1 Generalized anxiety disorder; F12.10 Cannabis abuse, uncomplicated; F40.10 Social phobia, unspecified; R45.851 Suicidal ideations; F60.7 Dependent personality disorder; Z65.3 Problems related to other legal circumstances; Z63.0 Problems in relationship with spouse or partner; Z20.822 Contact with and (suspected) exposure to COVID-19; Z79.899 Other long term (current) drug therapy; Z88.2 Allergy status to sulfonamides; Z88.8 Allergy status to other drugs, medicaments and biological substances; Z91.14 Patient's other noncompliance with medication regimen

== ENCOUNTER 2021-11-14 09:22 | Emergency (ER) | payer BC ==
[~2021-11-14] VITALS: Ht 177.8 cm; Wt 86.4 kg
[~2021-11-14 09:22] MED LIST changes: +CLON-412 PO; +ERGO500029 PO; +LATU40TA2 PO
[2021-11-14] MEDS ORDERED: CEPH500C (09:39)
[2021-11-14 15:00] VITALS: BP 128/90
== END 2021-11-14 15:03 | disposition home or self-care (01) ==
LOC: M ED 09:22
DX: L04.9 Acute lymphadenitis, unspecified (principal); I10 Essential (primary) hypertension; K21.9 Gastro-esophageal reflux disease without esophagitis; F41.9 Anxiety disorder, unspecified; F32.A Depression, unspecified; Z88.2 Allergy status to sulfonamides; Z88.8 Allergy status to other drugs, medicaments and biological substances; Z79.899 Other long term (current) drug therapy; F17.200 Nicotine dependence, unspecified, uncomplicated

== ENCOUNTER 2025-05-14 10:46 | Emergency (ER) | payer MEDICAID, OTHER ==
[~2025-05-14] VITALS: Ht 177.8 cm; Wt 103.4 kg
[~2025-05-14 10:46] MED LIST changes: +AMOX875T2 PO; +CEPH500C; -DOXY-350 PO; +DOXY-440 PO; +FLUO-365; +FLUO-365 PO; -FLUO20CA22; -FLUO20CA22 PO; +GABA-1172 PO; -GABA-282 PO; -IBUP-1022 PO; +IBUP600T42 PO; +KETO10TAB PO; -MIRT-62 PO; +MIRT-88 PO; -OLAN2.5T25 PO; +OLAN2.5T53 PO; +ONDA-282 PO; -ONDA4TAB6 PO
[2025-05-14] MEDS: LIDOCAINE W/EPINEPHrine 1% 20 ML VIAL SC ONE (16:10)
[2025-05-14] MEDS ORDERED: DOXY-441 PO (16:58)
[2025-05-14 17:05] VITALS: BP 142/92; TEMP 97.1; O2SAT 99
== END 2025-05-14 17:19 | disposition home or self-care (01) ==
LOC: M ED 10:46
DX: L02.811 Cutaneous abscess of head [any part, except face] (principal); Z88.2 Allergy status to sulfonamides; Z79.2 Long term (current) use of antibiotics; Z79.899 Other long term (current) drug therapy